=== PATIENT | female | born 1955 | race Caucasian/White ===

== ENCOUNTER 2019-09-21 08:00 | Outpatient (CLI) | payer BC, SELFPAY ==
--- NOTE | 2019-09-21 08:13 | MM_ITS ---
WS: [id number] LEFT DIGITAL MAMMOGRAPHY WITH CAD CLINICAL INFORMATION: LT BREAST LUMP 2 O'CLOCK HISTORY: Left breast lump 2:00. History of right breast surgery benign. COMPARISON: November 13, 2018, November 01, 2017, and TECHNIQUE: 5 views of the left breast were obtained. FINDINGS: The left breast is composed of heterogeneous fibroglandular density tissue, which can limit the detec tion of small underlying mass lesions. Asymmetric breast tissue left greater than right upper outer q uadrant unchanged. No definite mammographic abnormalities deep to the palpable marker. Ultrasound is pending. ULTRASOUND BREAST LEFT TECHNIQUE: Ultrasound left breast focused area of concern. CLINICAL INFORMATION: LT BREAST LUMP 2 O'CLOCK COMPARISON: None. FINDINGS: Ultrasound left breast at the 12 to 2:00 position. Hypoechoic taller than wide shadowing lesion at th e 2:00 position 4 cm from the nipple is suspicious for neoplasm. This measures approximately 1.3 x 0. 9 x 1.4 cm. Recommend further evaluation with ultrasound-guided biopsy. Incidental echogenic subcutaneous lipomas are noted. Incidental breast cyst at the 2:00 position. Recommend ultrasound-guided biopsy of a suspicious shadowing lesion left breast 2:00 position 4 cm fr om the nipple. BI-RADS 4C MM/[place] [id number] IMPRESSION: Follow up: Ultrasound-guided biopsy
== END 2019-09-21 08:01 | disposition home or self-care (01) ==
LOC: RADSHAW 08:04
PROVIDERS: Family Provider Internal Medicine; Visit Provider Family Medicine
DX: N63.21 Unspecified lump in the left breast, upper outer quadrant (principal); D17.39 Benign lipomatous neoplasm of skin and subcutaneous tissue of other sites
CPT/HCPCS: 76642; 77065

== ENCOUNTER 2019-10-17 11:44 | Outpatient (CLI) | payer BC, SELFPAY ==
--- NOTE | 2019-10-17 11:52 | US_ITS ---
WS: [id number] ULTRASOUND-GUIDED LEFT BREAST BIOPSY CLINICAL INFORMATION: BREAST LUMP LEFT SIDE 2 O'CLOCK POSITION COMPARISON: None. FINDINGS: The procedure including risks, benefits, and complications were discussed with the patient who agreed to proceed. Using sterile technique patient was prepped and draped in the usual sterile fashion. Aft er 1% lidocaine utilizing real-time ultrasound guidance 7 14-gauge cores were obtained of the left br east lesion at the 2 o'clock position. Subsequently a titanium clip was placed in the biopsy cavity. No immediate complications. Pathology demonstrates invasive mammary carcinoma with focal lobular features grade 2 of 3. US/[place] [id number] IMPRESSION: 1. Uncomplicated ultrasound-guided left breast biopsy. 2. The pathology demonstrates invasive mammary carcinoma with focal lobular fe atures grade 2 of 3. 3. Breast cancer prognostic profile pending. BI-RADS: 6-Known Biopsy-Proven Malignancy FOLLOW UP: See Report Recommend breast surgery consultation.
[2019-11-13 12:29] LABS: Miscellaneous Test See Scanned Lab Rpt
== END 2019-10-17 11:45 | disposition home or self-care (01) ==
LOC: RAD 11:48
PROVIDERS: Radiology Neuroradiology; Family Provider Internal Medicine; PCP Family Medicine; Visit Provider Family Medicine
DX: C50.412 Malignant neoplasm of upper-outer quadrant of left female breast (principal); N63.21 Unspecified lump in the left breast, upper outer quadrant
CPT/HCPCS: 19083; 88305; 88361; 88367; 88374

== ENCOUNTER 2019-10-31 14:12 | Outpatient (CLI) | payer BC, SELFPAY ==
--- NOTE | 2019-10-31 16:30 | ONC CON_ITS ---
Dr. Roberts New Patient Note Patient: Gisle Shipley Unit #: [id number]: [id number] Dicatated By: Roosevelt Roberts M.D.Date of Visit: Oct 31, 2019 Onc MED New Patient/Consult Referring Physician: Mary Lee History of Present Illness: Mrs. Gisel Shipley, is a 64-year-old female with history of right breast lumpectomy at age 18, as per patient since then she has been examining breast and recently noted mass in her left breast for which she underwent mammogram on 09/21/2019 which showed left breast is composed of heterogeneous fibroglandular density tissue, asymmetric breast tissue left greater than right upper outer quadrant unchanged. No definite mammographic abnormalities deep to the palpable marker. Subsequently patient underwent ultrasound of left breast at 12- 2:00 position. Hypoechoic shadowing lesion at 2:00 position 4 cm from the nipple is suspicious for neoplasm and it measures 1.3 x 0.9 x 1.4 cm. Patient underwent ultrasound-guided left breast biopsy on 10/17/2019 which showed invasive mammary carcinoma with focal lobular feature, grade 2, tumor involves all 5 cores., Prognostic profiling shows ER/CT strongly positive, HER-2/tony 2+, but negative for HER-2/tony overexpression by IHC and over amplification by FISH. Ki-67 was 36% which is high e.g. unfavorable. No family history of breast cancer No history of hormonal supplement. Patient denies any nipple discharge, denies any nipple retraction. Denies any left axillary fullness. Denies any bony pains. Denies any fever or chills. Past Medical History: Ms. Shipley's medical history consists of arthritis, depression, hypercholesterolemia, and hypothyroidism. Past Surgical History: Ms. Troncoso surgical/procedural history consists of bilateral knee replacement, breast biopsy, cholecystectomy, hernia repair, right breast lumpectomy, thyroid ablation, tubal ligation, and colonoscopy in 2009. Medications: Aspirin Adult 1 Tablet (of 325 mg) Oral daily, Atorvastatin Calcium 1 Tablet (of 20 mg) Oral daily, Cetirizine HCl 1 Tablet (of 10 mg) Oral daily PRN, Levothyroxine Sodium 1 Tablet (of 100 mcg) Oral daily Allergies: Aleve Social History: Ms. Shipley is and she is retired. Ms. Shipley quit smoking 8 years ago but had smoked for 15 years. She has no history of drinking. Ms. Shipley reports the following support systems: lives with spouse, significant other, family, or friends, lives in own house, supportive family/friends willing to assist with needs, and adequate transportation available for expected visits. Her diet consists of regular meals. She indicates her activity level as: regular exercise. Family History: Ms. Kans mother at age 77: Alzheimer's disease. Ms. Kans father is alive. Review Of Symptoms: Constitutional - Appetite is good and weight is stable. No fever, chills, hot flashes, or night sweats. Energy level is good, ENMT - No sinus congestion/drainage. No mouth sores. No sore throat or difficulty swallowing, Hematologic/Lymphatic - No abnormal bruising or bleeding, Respiratory - No shortness of breath. No cough. No pleuritic pain or hemoptysis, Cardiovascular - No angina pain. No palpitations, Gastrointestinal - No nausea or vomiting. No heartburn or acid reflux. No diarrhea or constipation. No blood in the stool or black stools, Genitourinary (F) - No dysuria or hematuria. No urinary frequency. No urgency or incontinence, Musculoskeletal - No joint or bone pain, Neurologic - No headache or dizziness. No numbness/paresthesias or other focal neurologic symptoms, Psychiatric - No anxiety or depression. No insomnia. Vital Signs: Performed on Oct 31, 2019 15:28: 0, 41.47 (HIGH), 2.12 sq.m, 64.00 in, 96 %, 67 /min, 20 /min, 145/75 mm(hg) (HIGH), 97.3 F (LOW), and 241.6 lbs (HIGH). Performance Status: 0 - Fully active, able to carry on all predisease activities without restrictions. (ECOG) Physical Examination: ENMT - . No oral exudates, ulcers, masses, thrush or mucositis. Oropharynx clear. Tongue normal, Respiratory - Lungs are clear to auscultation without rhonchi or wheezing, Cardiovascular - Regular rate and rhythm of heart, Breasts - left breast biopsy site healing,with no discharge. No left axillary lymphadenopathy, Abdomen - Non-tender, non-distended, no masses,. Good bowel sounds. No guarding or rebound tenderness. No pulsatile masses, Extremities - no edema. Lab/Imaging: Most recent lab results are not available for this patient. Impression: Invasive mammary carcinoma with focal lobular features, grade 2 per ultrasound-guided biopsy done on 10/17/2019 ER 91% positive, CT 89% positive, HER-2/tony negative. Ultrasound left breast done on 09/21/2019 showed 1.3 x 0.9 x 1.4 cm mass at 2:00 position left breast. Plan: Discussed with patient regarding her disease status and treatment options which include left breast lumpectomy with sentinel lymph node biopsy or left MRM with a left axilla lymph node sampling. Patient prefer breast preservation and would prefer lumpectomy with sentinel lymph node biopsy. Patient is already scheduled to see Dr. Gong . We will see her back after left breast lumpectomy with sentinel lymph node biopsy and if it shows localized disease with a no lymph node involvement we'll consider Oncotype DX and if it shows low risk then will consider adjuvant hormonal therapy with Arimidex 1 mg by mouth daily for 5 years on the other hand if it shows the risk then we will discuss about role of adjuvant chemotherapy followed by hormonal therapy. And as patient is considering breast preservation, she will need postlumpectomy radiation therapy also. Next Patient return to clinic 1 week after left breast lumpectomy with sentinel lymph node biopsy Signed By: Roosevelt Roberts M.D. <<Signature on File>>
== END 2019-10-31 14:13 | disposition home or self-care (01) ==
PROVIDERS: Family Provider Internal Medicine; PCP Family Medicine; Referring Provider Family Medicine; Visit Provider Internal Medicine Hematology & Oncology
DX: C50.412 Malignant neoplasm of upper-outer quadrant of left female breast (principal); Z17.0 Estrogen receptor positive status [ER+]; M19.90 Unspecified osteoarthritis, unspecified site; F32.9 Major depressive disorder, single episode, unspecified; E78.00 Pure hypercholesterolemia, unspecified; E03.9 Hypothyroidism, unspecified; Z96.653 Presence of artificial knee joint, bilateral; Z87.891 Personal history of nicotine dependence
CPT/HCPCS: 99205

== ENCOUNTER 2019-12-06 07:12 | Outpatient (CLI) | payer BC, SELFPAY ==
[2019-12-05 14:08] VITALS: BMI 41.5
--- NOTE | 2019-12-06 | US_ITS ---
WS: [id number] ULTRASOUND-GUIDED LEFT BREAST NEEDLE LOCALIZATION CLINICAL INFORMATION: LEFT BREAST LUMPECTOMY FINDINGS: The procedure including risks, benefits, and complications were discussed with the patient who agreed to proceed. Using sterile technique patient was prepped and draped in the usual sterile fashion. Aft er 1% lidocaine utilizing real-time ultrasound guidance a 7 cm Kopan's needle was advanced into the l eft breast lesion at the 2:00 position. Surgical specimen demonstrates gross total resection of the hypoechoic lesion with intact wire. US/US breast surgical specimen IMPRESSION: Uncomplicated ultrasound-guided needle localization with gross total resection. BI-RADS: 6-Known Biopsy-Proven Malignancy FOLLOW UP: See Report
[2019-12-06 07:29] VITALS: BP 141/65; PULSE 85; RESP 18; TEMP 36.3; O2SAT 97
--- NOTE | 2019-12-06 07:30 | US_ITS ---
WS: [id number] ULTRASOUND-GUIDED LEFT BREAST NEEDLE LOCALIZATION CLINICAL INFORMATION: LEFT BREAST LUMPECTOMY FINDINGS: The procedure including risks, benefits, and complications were discussed with the patient who agreed to proceed. Using sterile technique patient was prepped and draped in the usual sterile fashion. Aft er 1% lidocaine utilizing real-time ultrasound guidance a 7 cm Kopan's needle was advanced into the l eft breast lesion at the 2:00 position. Surgical specimen demonstrates gross total resection of the hypoechoic lesion with intact wire. US/[place] [id number] IMPRESSION: Uncomplicated ultrasound-guided needle localization with gross total resection. BI-RADS: 6-Known Biopsy-Proven Malignancy FOLLOW UP: See Report
--- NOTE | 2019-12-06 07:44 | NM_ITS ---
WS: [id number] SENTINEL NODE TECHNIQUE: Left breast sentinel node injection CLINICAL INFORMATION: breast cancer COMPARISON: None. PROCEDURE: The procedure including risks, benefits, and complications were discussed; the patient agr eed to proceed. Patient was prepped and draped in usual sterile fashion. Subsequently, 1% lidocaine p reservative-free was administered at the 12:00, 3:00, 6:00, and 9:00 o'clock positions for local anes thesia. Subsequently, 4 aliquots of filtered technetium 99m sulfur colloid was injected into the subc utaneous soft tissues. A total dose of 1.05 mCi was administered. Patient tolerated the procedure well with no immediate complications. CO/CO sentinel node inject [id number] IMPRESSION: Uncomplicated left breast sentinel node injection with a total dose of 1.05 mCi .
--- NOTE | 2019-12-06 09:02 | ANES.PREANE2 ---
Pre-Anesthetic Assessment Pre-Anesthetic Assessment: Height/Weight: Height 1.63 m Weight 109.769 kg Temp Pulse Resp BP Pulse Ox 97.4 F L 85 18 141/65 97 12/06/19 07:29 12/06/19 07:29 12/06/19 07:29 12/06/19 07:29 12/06/19 07:29 Proposed Procedure: Operation Date: 12/06/19 10:00 Proposed Procedures p Sentinal Lymph Node Biopsy(Left) - Connor Gong MD s Breast Biopsy Needle Localization(Left) - Connor Gong MD s Lumpectomy(Left) - Connor Gong MD Last intake: Intake Last Liquid Date 12/05/19 Last Liquid Time 21:00 Last Solid Date 12/05/19 Last Solid Time 15:00 Social: Social History: Tobacco (quit 2011) and No alcohol Exam: Pre-Anes Outpt Exam: alert, oriented x 3, clear to auscultation bilaterally and regular rate & rhythm Airway: Submandibular: WNL Cervical ROM: WNL MP: 2 Dentition: Other (ok) History/ROS: No significant history except as noted Pulmonary: Pulmonary: None reported CV/HEM: CV/HEM: None reported : : None reported Hepatic: Hepatic: None reported GI: GI: None reported Metabolic: Metabolic: Morbid obesity and Thyroid Musc/skel: Musc/skel: OA/DJD Neuropsych: Neuropsych: None reported Anesthetic Plan: ASA status: 2 Anesthesia: Anesthesia Evaluation and MAC Risk of > 500 ml blood loss (7ml/kg in children): No PFSH Anesthesia PFSH: Medical History Cholecystectomy planned Gall bladder disease Surgical History H/O total knee replacement H/O tubal ligation History of lumpectomy Social History Quit status (tobacco): has quit using tobacco Smoking risk assessment/counseling performed?: No Data Anesthesia Cardiac Studies: No Data to Display
[2019-12-06] MEDS: sodium chloride 0.9% 1,000 ML 30 ML IV (09:06)
--- NOTE | 2019-12-06 09:35 | W.PM.OPSUD ---
Surgery/Procedure H&P Update DATE OF PROCEDURE: December 06, 2019 DATE H&P PERFORMED: 11/19/19 H&P UPDATE INFORMATION: I have reviewed H&P completed within last 30 days and No changes to prior documentation PLANNED PROCEDURE: Operation Date: 12/06/19 10:00 Proposed Procedures p Sentinal Lymph Node Biopsy(Left) - Connor Gong MD s Breast Biopsy Needle Localization(Left) - Connor Gong MD s Lumpectomy(Left) - Connor Gong MD
--- NOTE | 2019-12-06 10:32 | PM.OP ---
Operative Report Date of procedure: December 06, 2019 Pre-op Diagnosis: Left breast cancer. Post-op diagnosis: same Procedure Done: 1. Left breast lumpectomy following preoperative needle localization. 2. Left axillary sentinel lymph node biopsy. Specimens removed/disposition: 1. Left breast lumpectomy specimen. Long suture anteriorly, short suture medially. 2. Left axillary sentinel lymph nodes. Surgeon: Connor Gong Anesthesia: MAC Estimated blood loss (mL): 25 Complications: None. Condition: stable Disposition: same day Procedure: The patient was brought to the operating room and was placed in a supine position on the operating room table. The patient had undergone needle localization and radioactive tracer injection in radiology preoperatively. A monitored anesthesia was induced. The left breast and axilla were prepped and draped in a sterile fashion, taking care not to disturb the localization wire which had been placed in radiology preoperatively. A combination of 1% lidocaine and 0.5% bupivacaine with 1-200,000 parts epinephrine was used for local anesthesia throughout the procedures. The gamma probe was first used to find the hot spot in the axilla. A curvilinear incision was carried out over the hot spot of the axilla inferiorly and somewhat anteriorly. Cautery and blunt dissection were used to traverse the subcutaneous tissue and the axilla was entered. Using a combination of inspection and the gamma probe, the hot lymph node was found and was completely removed using blunt dissection and cautery. The lymph node was actually contained in a small lymph node package containing as least 3 nodes. The node registered counts of 120 on the field. Further inspection of the axilla with the gamma probe revealed all counts less than 10. The wound was irrigated with saline. A suture of 3-0 Vicryl was used to bring the deeper tissue together and the skin was approximated using a running subcuticular suture of 4-0 Vicryl. Attention was then directed to the breast. A curvilinear incision was carried out in the upper outer aspect of the left breast over the palpable mass medial to the insertion point of the localization wire. Cautery was used to divide the breast tissue and then the entire palpable mass could be palpated as the wire was mobilized into the incision. The mass and wire were excised using a combination of sharp dissection and cautery, attempting to take a normal rim of breast tissue all around the periphery. Larger vessels were ligated with ties of 3-0 Vicryl. The specimen was eventually marked with a long suture anteriorly and a short suture medially. The wound was irrigated with saline and some small bleeding points were controlled with cautery. The skin was reapproximated using a running subcuticular suture of 4-0 Vicryl. Benzoin and Steri-Strips were placed over the incisions and a sterile bandage followed. The patient was taken to the recovery area in stable condition postoperatively.
[2019-12-06 10:49] VITALS: BP 153/79; PULSE 73; RESP 18; TEMP 36.3; O2SAT 95
[2019-12-06 11:07] VITALS: BP 161/77; PULSE 69; RESP 18; O2SAT 95
== END 2019-12-06 11:26 | disposition home or self-care (01) ==
PROVIDERS: Family Provider Internal Medicine; PCP Family Medicine; Visit Provider Surgery
PROC: (CPT 19301; principal; 2019-12-06 10:00)
PROC: (CPT 19301; 2019-12-06 10:00)
PROC: (CPT 19301; 2019-12-06 10:00)
DX: C50.412 Malignant neoplasm of upper-outer quadrant of left female breast (principal); E78.5 Hyperlipidemia, unspecified; M19.90 Unspecified osteoarthritis, unspecified site; E03.9 Hypothyroidism, unspecified; Z87.891 Personal history of nicotine dependence
CPT/HCPCS: 19301; 38500; 12345; 19285; 38792; 88305; A9541; J0690; J2001; J2250; J2704; J3010; J3490; J7030

== ENCOUNTER 2020-01-17 08:17 | Outpatient (CLI) | payer BC, SELFPAY ==
[2020-01-17 08:43] LABS: Basophils # 0.1 10^3/uL (0.0-0.1); Basophils % 1.2 %; Eosinophils # 0.4 10^3/uL (0.0-0.8); Eosinophils % 5.6 %; Hematocrit 42.1 % (37.0-47.0); Hemoglobin 13.4 g/dL (11.5-15.3); Lymphocytes # 1.6 10^3/uL (0.8-4.8); Mean Corpuscular HGB Conc 31.8 g/dL (30.0-36.0); Mean Corpuscular Hemoglobin 29.4 pg (28.0-34.0); Mean Corpuscular Volume 92.3 fL (81-99); Mean Platelet Volume 9.7 fL (7.4-10.4); Monocytes # 0.4 10^3/uL (0.2-0.9); Monocytes % 5.3 %; Neutrophils # 4.2 10^3/uL (1.8-7.7); Neutrophils % 63.6 %; Nucleated Red Blood Cells % 0 %; Platelet Count 429 10^3/cmm (130-400); Red Blood Count 4.56 10^6/uL (4.1-5.3); Red Cell Distribution Width 13.3 % (12.1-15.1); White Blood Count 6.6 10^3/uL (4.0-10.0)
[2020-01-17 09:06] LABS: Alanine Aminotransferase 14 U/L (0-33); Albumin Level 4.2 g/dL (3.5-5.2); Alkaline Phosphatase 128 IU/L (35-105); Anion Gap 14.6 (5-19); Aspartate Amino Transferase 15 U/L (0-32); Blood Urea Nitrogen 13 mg/dL (8-23); Calcium 9.9 mg/dL (8.5-10.5); Carbon Dioxide 26 mmol/L (22-29); Chloride 102 mmol/L (98-107); Globulin 3.4 g/dL (1.3-4.6); Glomerular Filtration Rate 72.7 mL/min (90-130); Glucose 121 mg/dL (65-115); Osmolality Calculated 283 mOsm/kg (285-295); Potassium 4.6 mmol/L (3.5-5.1); Sodium 138 mmol/L (136-145); Total Bilirubin 0.4 mg/dL (0.15-1.2); Total Protein 7.6 g/dL (6.6-8.7)
--- NOTE | 2020-01-17 13:19 | ONC FU_ITS ---
Dr. Roberts follow up note Patient: Gisel Shipley Unit #: [id number]: 1955 Dicatated By: Roosevelt Roberts M.D.Date of Visit:Jan 17, 2020 Onc Med Follow-up/Prog Note History of Present Illness: Mrs. Gisel Shipley, is a 64-year-old female with history of right breast lumpectomy at age 18, as per patient since then she has been examining breast and recently noted mass in her left breast for which she underwent mammogram on 09/21/2019 which showed left breast is composed of heterogeneous fibroglandular density tissue, asymmetric breast tissue left greater than right upper outer quadrant unchanged. No definite mammographic abnormalities deep to the palpable marker. Subsequently patient underwent ultrasound of left breast at 12- 2:00 position. Hypoechoic shadowing lesion at 2:00 position 4 cm from the nipple is suspicious for neoplasm and it measures 1.3 x 0.9 x 1.4 cm. Patient underwent ultrasound-guided left breast biopsy on 10/17/2019 which showed invasive mammary carcinoma with focal lobular feature, grade 2, tumor involves all 5 cores., Prognostic profiling shows ER/NC strongly positive, HER-2/tony 2+, but negative for HER-2/tony overexpression by IHC and over amplification by FISH. Ki-67 was 36% which is high e.g. unfavorable.Underwent left breast lumpectomy with sentinel lymph node biopsy on 12/06/2019 final pathology report showed 2.5 cm invasive lobular carcinoma with clear surgical margins , T2 and 3 sentinel lymph node were examined showed no evidence of metastatic disease N0 Started on Arimidex 1 mg by mouth daily along with vitamin D and calcium supplement on 01/17/2020, Oncotype DX score is pending No family history of breast cancer No history of hormonal supplement. Patient denies any nipple discharge, denies any nipple retraction. Denies any left axillary fullness. Denies any bony pains. Denies any fever or chills. Came for follow-up, denies any specific complaints, no fever or chills, no nausea or vomiting, no diarrhea constipation, tolerated left breast lumpectomy well now he is doing well. Medications: Amoxicillin 1 Capsule (of 500 mg) Oral b.i.d., Aspirin Adult 1 Tablet (of 325 mg) Oral daily, Atorvastatin Calcium 1 Tablet (of 20 mg) Oral daily, Cetirizine HCl 1 Tablet (of 10 mg) Oral daily PRN, Levothyroxine Sodium 1 Tablet (of 100 mcg) Oral daily, traMADol HCl 1 Tablet (of 50 mg) Oral daily PRN Allergies: Aleve Review of Systems: Constitutional - Appetite is good and weight is stable. No fever, chills, hot flashes, or night sweats. Energy level is good, ENMT - No sinus congestion/drainage. No mouth sores. No sore throat or difficulty swallowing, Hematologic/Lymphatic - No abnormal bruising or bleeding, Respiratory - No shortness of breath. No cough. No pleuritic pain or hemoptysis, Cardiovascular - No angina pain. No palpitations, Gastrointestinal - No nausea or vomiting. No heartburn or acid reflux. No diarrhea or constipation. No blood in the stool or black stools, Genitourinary (F) - No dysuria or hematuria. No urinary frequency. No urgency or incontinence, Musculoskeletal - No joint or bone pain, Neurologic - No headache or dizziness. No numbness/paresthesias or other focal neurologic symptoms, Psychiatric - No anxiety or depression. No insomnia. Vital Signs: Performed on Jan 17, 2020 10:12 Height - 64.00 in Weight - 241 lbs (LOW) BSA - 2.12 sq.m BMI - 41.37 (HIGH) Temperature - 98.0 F (LOW) Pulse - 67 /min Respiration - 17 /min BP - 173/75 mm(hg) (HIGH) O2 Sat - 99 % Pain - 5 Performance Status: 0 - Fully active, able to carry on all predisease activities without restrictions. (ECOG) Physical Examination: Respiratory - Lungs are clear, Cardiovascular - Regular rate and rhythm of heart, Extremities - no visible edema. Lab/Imaging: Most recent lab results are not available for this patient. Impression: Invasive mammary carcinoma with focal lobular features, grade 2 per ultrasound-guided left breast biopsy done on 10/17/2019 status post lumpectomy Done on 12/06/2019 showed 2.5 cm invasive lobular carcinoma with clear surgical margins T2, 3 sentinel lymph nodes were examined showed no evidence of metastatic disease N0 stage IIa ER 91% positive, NC 89% positive, HER-2/tony negative. Ultrasound left breast done on 09/21/2019 showed 1.3 x 0.9 x 1.4 cm mass at 2:00 position left breast. Plan: Discussed with patient regarding her labs white blood count 6.66 hemoglobin 13.4 platelets 425,000 CMP within normal limits Clinically, patient is doing well, tolerated left breast lumpectomy with sentinel lymph node biopsy well final pathology report showed 2.5 cm invasive lobular carcinoma with clear surgical margin and no evidence of sentinel lymph node involvement, clinical stage IIa, at this point we will consider Oncotype DX score, treated low then treat her with adjuvant hormonal therapy and postlumpectomy radiation therapy on the other hand if is high then will discuss about role of chemotherapy In the meantime we'll start on Arimidex 1 mg by mouth daily along with vitamin D and calcium all the side effects possible benefits estrogen with Arimidex including but not limited to muscular skeleton pain, hot flashes, generalized weakness and fatigue, bone demineralization were discussed further teaching will be done by chemotherapy nurse. We will she will return to clinic in one month to discuss about Oncotype DX score in the meantime we'll refer her to radiation oncology for postlumpectomy radiation therapy. Signed By: Roosevelt Roberts M.D. <<Signature on File>>
== END 2020-01-17 08:18 | disposition home or self-care (01) ==
LOC: ONCMED 08:17
PROVIDERS: PCP Family Medicine; Visit Provider Internal Medicine Hematology & Oncology
DX: C50.412 Malignant neoplasm of upper-outer quadrant of left female breast (principal); Z17.0 Estrogen receptor positive status [ER+]; Z98.890 Other specified postprocedural states
CPT/HCPCS: 36415; 80053; 85025; 99214

== ENCOUNTER 2020-01-22 06:00 | Outpatient (CLI) | payer BC, SELFPAY ==
--- NOTE | 2020-01-24 08:26 | N.ONRAD NP_ITS ---
Radiation Oncology New Patient Visit Patient: Gisel Shipley MR#: [id number] : 1955> Age: 64> Sex: Female> Dictated by: Dr. Alvaro Hummel Date of Service: 01/22/2020 Referring Physician(s) : Mary Lee Diagnosis: Z17.0 - estrogen receptor positive status [er+], Diagnosed 10/31/2019 (active) and C50.412 - malignant neoplasm of upper-outer quadrant of left female breast, Diagnosed 10/31/2019 (active). Radiotherapy to date: Summary > No prior radiation therapy. 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 She underwent initial biopsy on October 18, 2019 she underwent resection and sentinel lymph node biopsy on December 06, 2019. Decision for systemic treatment is still pending the outcome of an Oncotype DX assessment. We were asked to see her regarding the role of adjuvant breast radiation treatment. Ms. Gisel Shipley noted a asymptomatic new mass in the lateral aspect of her left breast in July 2019. There were no skin changes or skin dimpling noted. She underwent mammography and ultrasonography on September 21, 2019 mammography revealed heteogeneous fibroglandular density tissue.. Follow-up ultrasonography revealed a hypoechoic lesion at the 2 o'clock position measuring 1.3 x 0.9 x 1.4 cm. Follow-up biopsy on October 18, 2019 revealed invasive ductal carcinoma ER positive at 91% LA positive at 89% Ki-67 was elevated at 36% HER-2/tony was negative by FISH She underwent excisional resection and sentinel lymph node biopsy on December 06, 2019 this revealed grade 2 invasive ductal carcinoma 2.5 cm in dimension resected with clear margins. 3 lymph nodes were sampled which were clear of involvement. Postoperatively she has done well. She is seen Dr. Roberts. Oncotype DX score is pending and this will be a determinant for systemic treatment whether it is hormone treatment alone versus systemic chemotherapy followed by hormonal treatment.. In the meantime she has been placed on anastrozole. Current Medications: Amoxicillin, anastrozole, aspirin Adult, atorvastatin Calcium, cetirizine HCl, levothyroxine Sodium, traMADol HCl. Allergies: Aleve. Medical History: - Arthritis, - depression, - hypercholesterolemia, - hypothyroidism. No history of collagen vascular disease. No previous radiation therapy. She did have thyroid ablation for hyperthyroidism in the past Surgical History: Bilateral knee replacement, breast biopsy, cholecystectomy, colonoscopy on 06/24/2010, hernia repair, right breast lumpectomy, thyroid ablation and tubal ligation. Family History: Father is alive. Mother is at age 77 having experienced Alzheimer's disease. No family history of carcinoma Social History: Last screened on 01/17/2020 - Yes - but has quit for 8 years. Smoked for 15 years. Last screened on 01/17/2020 - Never drank. Patient indicated access to the following support systems: lives with spouse, significant other, family, or friends, lives in own house, supportive family/friends willing to assist with needs, and adequate transportation available for expected visits. Patient indicated the following nutritional habits: regular meals. Patient indicated participation in the following forms of activity: regular exercise. She was in 2010 she had 2 adult children 1 son in boating accident and drowned in 2005 she smoked one third of a pack of cigarettes a day for 30 years she quit on fci in 2011 she rarely drinks alcohol. 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 She currently cares for her mother as well as watching her father and other family members Current Complaints / Review of Systems: Constitutional - Denies lack of appetite, fatigue, fever, night sweats and rigors / chills. Cardiovascular - Denies chest pain and palpitations. Respiratory - Denies cough and dyspnea. Gastrointestinal - Denies constipation, diarrhea, nausea and vomiting. Genitourinary (F) - Denies dysuria, frequency and hematuria. Musculoskeletal - Denies bone pain and joint pain. Neurologic - Complains of insomnia which is normal for her. Denies abnormal gait and headaches. Psychiatric - Denies depression.. Vital Signs: Performed on 01/22/2020 2:52 PM Temperature - 98.6 f, Pulse - 59, Respiration - 17, O2 Sat - 96 %, Pain - 0 and BP - 124/ 80 mm(hg). Physical Exam: Alert woman in no acute distress HEENT examination revealed fair dentition with recent tooth extraction in the mandible. Lymph nodes she had no palpable cervical or supra thor adenopathy. Arms had full range of motion with no arm edema. Left breast revealed well-healed incision in the upper outer quadrant no breast masses tenderness or skin changes were noted. Lungs clear to auscultation. Heart regular without murmur gallop. Abdominal examination unremarkable. Extremities revealed no clubbing or cyanosis. Neurologic examination revealed no focal deficits. Performance Status: 1 - No physically strenuous activity, but ambulatory and able to carry out light or sedentary work (e.g. office work, light house work). (ECOG) Pathology: Primary, z17.0 - estrogen receptor positive status [er+], Diagnosed 10/31/2019 (active) and Primary, c50.412 - malignant neoplasm of upper-outer quadrant of left female breast, Diagnosed 10/31/2019 (active). Lab: Test performed on 01/17/2020 8:32 AM Platelet Count - 429 10 3/cmm (high), eGFR - 72.7 ml/min (low), Glucose - 121 mg/dl (high) and Alkaline Phosphatase - 128 iu/l (high). Imaging: See HPI Impression: IN summary my impression is that a pathologic stage II (T2 N0 M0) ER+ LA+ HER-2/tony negative grade 2 adenocarcinoma the left breast. she had full resection at lumpectomy she is healed well following surgery. We await her Oncotype DX score to determine appropriate systemic treatment. In the event she has a high score and requires adjuvant chemotherapy this would be pursued first and following the completion of chemotherapy she would then have adjuvant radiation treatment and proceed with adjuvant anastrozole. I discussed this in detail with the patient I reviewed this with Dr. Roberts as well and he will follow-up with the patient once the Oncotype DX score is available. I outlined the role of adjuvant radiation as well as its acute and chronic toxicities with the patient in detail. Plan: Signed by: 01/24/2020 8:25:12 AM <<Signature on File>> Time spent with patient: CPT Code: CPT Code:
== END 2020-01-22 06:01 | disposition home or self-care (01) ==
LOC: ONCMED 15:37
PROVIDERS: PCP Family Medicine; Visit Provider Radiology Radiation Oncology
DX: C50.412 Malignant neoplasm of upper-outer quadrant of left female breast (principal); Z17.0 Estrogen receptor positive status [ER+]; Z79.818 Long term (current) use of other agents affecting estrogen receptors and estrogen levels
CPT/HCPCS: 99204

== ENCOUNTER 2020-02-13 14:08 | Outpatient (CLI) | payer BC, SELFPAY ==
[2020-02-13 14:45] LABS: Basophils # 0.1 10^3/uL (0.0-0.1); Basophils % 1.1 %; Eosinophils # 0.4 10^3/uL (0.0-0.8); Eosinophils % 3.6 %; Hemoglobin 13.8 g/dL (11.5-15.3); Lymphocytes # 2.3 10^3/uL (0.8-4.8); Lymphocytes % 23.6 %; Mean Corpuscular HGB Conc 32.1 g/dL (30.0-36.0); Mean Corpuscular Hemoglobin 29.6 pg (28.0-34.0); Mean Corpuscular Volume 92.1 fL (81-99); Mean Platelet Volume 9.9 fL (7.4-10.4); Monocytes # 0.6 10^3/uL (0.2-0.9); Monocytes % 5.8 %; Neutrophils # 6.4 10^3/uL (1.8-7.7); Neutrophils % 65.6 %; Nucleated Red Blood Cells % 0 %; Platelet Count 426 10^3/cmm (130-400); Red Blood Count 4.67 10^6/uL (4.1-5.3); Red Cell Distribution Width 13.7 % (12.1-15.1); White Blood Count 9.8 10^3/uL (4.0-10.0)
[2020-02-13 15:14] LABS: Alanine Aminotransferase 18 U/L (0-33); Albumin Level 4.3 g/dL (3.5-5.2); Alkaline Phosphatase 133 IU/L (35-105); Anion Gap 13.2 (5-19); Aspartate Amino Transferase 17 U/L (0-32); Blood Urea Nitrogen 11 mg/dL (8-23); Calcium 10.5 mg/dL (8.5-10.5); Carbon Dioxide 27 mmol/L (22-29); Chloride 103 mmol/L (98-107); Glomerular Filtration Rate 63.4 mL/min (90-130); Glucose 113 mg/dL (65-115); Osmolality Calculated 285 mOsm/kg (285-295); Potassium 4.2 mmol/L (3.5-5.1); Sodium 139 mmol/L (136-145); Total Bilirubin 0.2 mg/dL (0.15-1.2); Total Protein 7.3 g/dL (6.6-8.7)
--- NOTE | 2020-02-15 13:55 | ONC FU_ITS ---
Dr. Roberts follow up note Patient: Gisel Shipley Unit #: [id number]: 1955 Dicatated By: Roosevelt Roberts M.D.Date of Visit:February 13, 2020 Onc Med Follow-up/Prog Note History of Present Illness: Mrs. Gisel Shipley, is a 64-year-old female with history of right breast lumpectomy at age 18, as per patient since then she has been examining breast and recently noted mass in her left breast for which she underwent mammogram on 09/21/2019 which showed left breast is composed of heterogeneous fibroglandular density tissue, asymmetric breast tissue left greater than right upper outer quadrant unchanged. No definite mammographic abnormalities deep to the palpable marker. Subsequently patient underwent ultrasound of left breast at 12- 2:00 position. Hypoechoic shadowing lesion at 2:00 position 4 cm from the nipple is suspicious for neoplasm and it measures 1.3 x 0.9 x 1.4 cm. Patient underwent ultrasound-guided left breast biopsy on 10/17/2019 which showed invasive mammary carcinoma with focal lobular feature, grade 2, tumor involves all 5 cores., Prognostic profiling shows ER/MN strongly positive, HER-2/tony 2+, but negative for HER-2/tony overexpression by IHC and over amplification by FISH. Ki-67 was 36% which is high e.g. unfavorable.Underwent left breast lumpectomy with sentinel lymph node biopsy on 12/06/2019 final pathology report showed 2.5 cm invasive lobular carcinoma with clear surgical margins , T2 and 3 sentinel lymph node were examined showed no evidence of metastatic disease N0 Started on Arimidex 1 mg by mouth daily along with vitamin D and calcium supplement on 01/17/2020, Oncotype DX score checked on 01/20/2020 showed recurrence score 14 e.g. low, risk of distant recurrence is about 4% with aromatase inhibitor and average absolute chemotherapy benefit less than 1%. No family history of breast cancer No history of hormonal supplement. Patient denies any nipple discharge, denies any nipple retraction. Denies any left axillary fullness. Denies any bony pains. Denies any fever or chills. Came for follow-up, denies any specific complaints except off and on hot flashes, otherwise tolerating Arimidex/vitamin D/calcium well, no fever or chills, no diarrhea constipation, no skin rash, no jaundice. Medications: Anastrozole 1 Tablet (of 1 mg) Oral daily, Aspirin Adult 1 Tablet (of 325 mg) Oral daily, Calcium + D 2 Tablet (of 600 mg) Oral daily, Levothyroxine Sodium 1 Tablet (of 100 mcg) Oral daily, Probiotic 1 Capsule Oral daily Allergies: Aleve Review of Systems: Review of Systems is not available for this patient. Vital Signs: Performed on February 13, 2020 15:27 Height - 64.00 in Weight - 239.2 lbs (LOW) BSA - 2.11 sq.m BMI - 41.06 (HIGH) Temperature - 98.6 F Pulse - 70 /min Respiration - 24 /min BP - 115/73 mm(hg) O2 Sat - 95 % (LOW) Pain - 0 Performance Status: 0 - Fully active, able to carry on all predisease activities without restrictions. (ECOG) Physical Examination: Respiratory - Lungs are clear to auscultation, Cardiovascular - Regular rate and rhythm of heart, Extremities - no visible edema or rash. Lab/Imaging: Test performed on February 13, 2020 14:07 Sodium 139 mmol/L Potassium 4.2 mmol/L Chloride 103 mmol/L CO2 27 mmol/L Anion Gap 13.2 BUN 11 mg/dL Creatinine 0.9 mg/dL Cr Clearance (Est) 111.01 mL/min eGFR 63.4 mL/min Glucose 113 mg/dL Calcium 10.5 mg/dL Protein, Total 7.3 g/dL Albumin 4.3 g/dL Globulin 3.0 g/dL Bilirubin, Total 0.2 mg/dL ALT (SGPT) 18 U/L AST (SGOT) 17 U/L Alkaline Phosphatase 133 IU/L WBC 9.8 10 3/uL RBC 4.67 10 6/uL HGB 13.8 g/dL HCT 43.0 % MCV 92.1 fL MCH 29.6 pg MCHC 32.1 g/dL RDW 13.7 % Platelet Count 426 10 3/cmm MPV 9.9 fL Neutrophils 6.4 10 3/uL Lymphocytes 2.3 10 3/uL Monocytes 0.6 10 3/uL Eosinophils 0.4 10 3/uL Basophils 0.1 10 3/uL Neutrophil % 65.6 % Lymphocyte % 23.6 % Monocyte % 5.8 % Eosinophil % 3.6 % Basophils % 1.1 % Impression: Invasive mammary carcinoma with focal lobular features, grade 2 per ultrasound-guided left breast biopsy done on 10/17/2019 status post lumpectomy Done on 12/06/2019 showed 2.5 cm invasive lobular carcinoma with clear surgical margins T2, 3 sentinel lymph nodes were examined showed no evidence of metastatic disease N0 stage IIa ER 91% positive, MN 89% positive, HER-2/tony negative. Ultrasound left breast done on 09/21/2019 showed 1.3 x 0.9 x 1.4 cm mass at 2:00 position left breast. Plan: Discussed with patient regarding her labs white blood count 9.8 hemoglobin 13.8 crit 42 platelets 426,000 CMP within normal limits and her Oncotype DX score which is low e.g. 14, no role of adjuvant chemotherapy rather with hormonal therapy alone risk of distant recurrence is 4% Clinically, patient doing well, tolerating adjuvant therapy with Arimidex/vitamin D/calcium well but with expected side effects e.g. off and on are flashes, hopefully with time it may improve, if not may consider intervention. Her Oncotype DX score was low so we'll continue with adjuvant hormone therapy and we'll refer her to radiation oncology for postlumpectomy radiation therapy. Patient will return to clinic in 3 months with CBC CMP Signed By: Roosevelt Roberts M.D. <<Signature on File>>
== END 2020-02-13 14:09 | disposition home or self-care (01) ==
LOC: ONCMED 14:10
PROVIDERS: PCP Family Medicine; Visit Provider Internal Medicine Hematology & Oncology
DX: C50.412 Malignant neoplasm of upper-outer quadrant of left female breast (principal); Z17.0 Estrogen receptor positive status [ER+]; Z79.811 Long term (current) use of aromatase inhibitors
CPT/HCPCS: 80053; 85025; 99214

== ENCOUNTER 2020-03-18 06:50 | Outpatient (RCR) | payer BC, SELFPAY ==
--- NOTE | 2020-02-20 | CT_ITS ---
Radiation Therapy Planning CT images; total exam DLP: 874.67 mGy-cm MTDD
--- NOTE | 2020-02-26 09:54 | N.ONRAD NP_ITS ---
Radiation Oncology Weekly Treatment Management Patient: Gisel Shipley MR#: [id number] : 1955> Age: 64> Sex: Female Dictated by: Althea Vogel Date of Service: 02/26/2020 Referring Physician(s) : Mary Lee M.D. Diagnosis: C50.412 - Malignant neoplasm of upper-outer quadrant of left female breast, Diagnosed 01/22/2020 (Active) Z17.0 - Estrogen receptor positive status [ER+], Diagnosed 10/31/2019 (Active) C50.412 - Malignant neoplasm of upper-outer quadrant of left female breast, Diagnosed 10/31/2019 (Active) Patient presents today for check-up by registered nurse. The patients has had Course: [facility] 2019 Treatment Site: [place] [id number],Ref. ID: [id number], Energy: 15X/6X, Dose/Fx (cGy): 266, #Fx: , Dose Correction (cGy): 0, Total Dose (cGy): 532, Start Date: 02/25/2020, Elapsed Days: 1 Patient Has complaint of pinkness at the lower part of the left breast. I have addressed complaints by giving the patient samples of Aquaphor and explained to the patient when to apply it. Patient acknowledged understanding. Nursing assessment of patient as follows: Constitutional Complains of moderate fatigue. Complains of night sweats which occur every night and also has hot flashes. Denies lack of appetite and fever. Integumentary Has some pinkness at the lower part of the left breast. Breasts Denies pain. Cardiovascular Complains of edema both feet and the left one is worse than the right. Denies arrhythmias and chest pain. Respiratory Denies cough, dyspnea and wheezing. Questions encouraged and answered. I encouraged patient to call with any concerns. Patient verbalized understanding and denied any further needs at this time. Vital Signs: Performed on 02/26/2020 8:34 AM BMI - 40.51 kg/m2 (high), Height - 64.00 in, Weight - 236.0 lbs, Temperature - 98.6 f, Pulse - 78, Respiration - 18, O2 Sat - 98 %, Pain - 0 and BP - 132/ 70 mm(hg). Signed by: Althea Vogel>02/26/2020 9:52:16 AM <<Signature on File>>
--- NOTE | 2020-03-04 09:38 | ONCRAD TMN_ITS ---
Radiation Oncology Weekly Treatment Management Patient: Gisel Shipley MR#: [id number] : 1955> Age: 64> Sex: Female Dictated by: Dr. Albert Sheikh Date of Service: 03/04/2020 Referring Physician(s) : Mary Lee M.D. Primary Diagnosis: C50.412 - Malignant neoplasm of upper-outer quadrant of left female breast, Diagnosed 01/22/2020 (Active) Z17.0 - Estrogen receptor positive status [ER+], Diagnosed 10/31/2019 (Active) C50.412 - Malignant neoplasm of upper-outer quadrant of left female breast, Diagnosed 10/31/2019 (Active) Radiotherapy to date: Course: [facility] 2019, Treatment Site: [id number], Ref. ID: [id number], Energy: 15X/6X, Dose/Fx (cGy): 266, #Fx: , Dose Correction (cGy): 0, Total Dose (cGy): 1,862, Start Date: 02/25/2020, Elapsed Days: 8 Current Complaints/Interval History: MS Shpiley has completed 1862 cGy in 7 fractions. She was noted to have mild erythema of the left breast last week. Discomfort has been minimal. She is on anastrozole and continues it during radiation. She has hot flashes and night sweats that appear to be related to the anastrozole. She says they have improved some recently. Her fatigue is mild. The edema noted in her feet last week is not present this morning. Her exam reveals her lungs to be completely clear clear. Heart rhythm is regular with no murmur or gallop. The left breast has mild edema in the inner lower quadrant. There is mild erythema of the skin. There is no excessive skin reaction at all. I feel that the erythema is mainly related to mild edema rather than a true skin reaction. She will continue the Aquaphor. The axillary incision and the upper outer quadrant breast incision are intact and there is no evidence of infection. There is no tenderness in the tumor bed area. Overall the cosmetic result is very good at this time. We will continue with treatment according to plan. No questions. Constitutional Complains of mild fatigue. Complains of night sweats which occur every night and also has hot flashes. Denies lack of appetite and fever. ENMT Denies dysphagia. Integumentary Has redness to the left breast. Breasts Denies pain. Cardiovascular Denies arrhythmias and chest pain. Respiratory Complains of cough occasionally. Denies dyspnea and wheezing. Current Medications: Anastrozole, aspirin Adult, calcium + D, levothyroxine Sodium, probiotic. Allergies: Aleve. Vital Signs: Performed on 03/04/2020 8:33 AM BMI - 40.235 kg/m2 (high), Height - 64.00 in, Weight - 234.4 lbs, Temperature - 97.6 f, Pulse - 68, Respiration - 18, O2 Sat - 98 %, Pain - 0 and BP - 113/ 67 mm(hg). Physical Exam: Appears stable, no skin erythema or desquamation. Performance Status: 0 - Fully active, able to carry on all predisease activities without restrictions. (ECOG) Lab: None pending in Radiation Oncology. Test performed on 02/13/2020 2:07 PM Platelet Count - 426 10 3/cmm (high), eGFR - 63.4 ml/min (low) and Alkaline Phosphatase - 133 iu/l (high). Imaging: No new diagnostic imaging was performed since the last weekly treatment visit. All radiation therapy related imaging (including but not limited to kV, MV, and CBCT generated images) was reviewed. Appropriate changes, if any, were made to assure accurate target localization. Impression/Plan: Tolerating treatment well with expected side effects. Continue treatment as planned. CPT: 56527 Signed by: Dr. Jeffrey Sheihk>03/04/2020 9:36:39 AM <<Signature on File>>
--- NOTE | 2020-03-11 08:56 | ONCRAD TMN_ITS ---
Radiation Oncology Weekly Treatment Management Patient: Gisel Shipley MR#: [id number] : 1955> Age: 64> Sex: Female Dictated by: Dr. Jeffrey Sheikh Date of Service: 03/11/2020 Referring Physician(s) : Mary Lee M.D. Primary Diagnosis: C50.412 - Malignant neoplasm of upper-outer quadrant of left female breast, Diagnosed 01/22/2020 (Active) Z17.0 - Estrogen receptor positive status [ER+], Diagnosed 10/31/2019 (Active) C50.412 - Malignant neoplasm of upper-outer quadrant of left female breast, Diagnosed 10/31/2019 (Active) Radiotherapy to date: Course: LT Breast 2019, Treatment Site: [facility] [id number], Ref. ID: [id number], Energy: 15X/6X, Dose/Fx (cGy): 266, #Fx: , Dose Correction (cGy): 0, Total Dose (cGy): 3,192, Start Date: 02/25/2020, End Date: 03/11/2020, Elapsed Days: 15 Current Complaints/Interval History: Her fatigue is stable. She has multiple individuals dependent upon her including her fianc??? who has a history of kidney failure, her elderly aunt, and her father and stepmother. She continues anastrozole. She has mild hot flashes and night sweats that are probably related. She has almost no discomfort at all in her breast. She has mild pruritus. Exam of the breast reveals no edema. The axillary incision and the breast incision are intact. There is no evidence of infection. Neither is tender. There is no palpable fibrosis. The entire breast is soft and nontender. The cosmetic result is excellent thus far. She has an excellent range of motion in the left arm without lymphedema. Constitutional Complains of mild fatigue. Complains of night sweats which occur occasionally. Denies lack of appetite, fever and change in weight. ENMT Denies dysphagia. Integumentary Has redness to the left breast and complains of itching Breasts Denies pain. Cardiovascular Denies arrhythmias, chest pain and edema. Respiratory Denies cough, dyspnea and wheezing. Current Medications: Amoxicillin, anastrozole, anastrozole, aspirin Adult, calcium + D, levothyroxine Sodium, probiotic. Allergies: Aleve. Vital Signs: Performed on 03/11/2020 8:33 AM BMI - 40.475 kg/m2 (high), Height - 64.00 in, Weight - 235.8 lbs, Temperature - 98.1 f, Pulse - 66, Respiration - 18, O2 Sat - 97 %, Pain - 0 and BP - 120/ 68 mm(hg). Physical Exam: Appears stable, no skin erythema or desquamation. Performance Status: 0 - Fully active, able to carry on all predisease activities without restrictions. (ECOG) Lab: None pending in Radiation Oncology. Test performed on 02/13/2020 2:07 PM Platelet Count - 426 10 3/cmm (high), eGFR - 63.4 ml/min (low) and Alkaline Phosphatase - 133 iu/l (high). Imaging: No new diagnostic imaging was performed since the last weekly treatment visit. All radiation therapy related imaging (including but not limited to kV, MV, and CBCT generated images) was reviewed. Appropriate changes, if any, were made to assure accurate target localization. Impression/Plan: Tolerating treatment well with mild side effects. Continue treatment as planned. CPT: 67006 Signed by: Dr. Jeffrey Sheikh>03/11/2020 8:55:20 AM <<Signature on File>>
--- NOTE | 2020-03-18 09:16 | ONCRAD TMN_ITS ---
Radiation Oncology Weekly Treatment Management Patient: Gisel Shipley MR#: [id number] : 1955> Age: 64> Sex: Female Dictated by: Dr. Jeffrey Sheikh Date of Service: 03/18/2020 Referring Physician(s) : Mary Lee M.D. Diagnosis: C50.412 - Malignant neoplasm of upper-outer quadrant of left female breast, Diagnosed 01/22/2020 (Active) Z17.0 - Estrogen receptor positive status [ER+], Diagnosed 10/31/2019 (Active) C50.412 - Malignant neoplasm of upper-outer quadrant of left female breast, Diagnosed 10/31/2019 (Active) Radiotherapy to date: Course: LT Breast 2019, Treatment Site: [id number], Ref. ID: [id number], Energy: 15X/6X, Dose/Fx (cGy): 250, #Fx: 1 / 4, Dose Correction (cGy): 0, Total Dose (cGy): 250, Start Date: 03/18/2020, End Date: 03/18/2020, Elapsed Days: 0 Treatment Site: LT [id number], Ref. ID: [id number], Energy: 15X/6X, Dose/Fx (cGy): 266, #Fx: 16 / 16, Dose Correction (cGy): 0, Total Dose (cGy): 4,256, Start Date: 02/25/2020, End Date: 03/17/2020, Elapsed Days: 21 Chief Complaint/History of Present Illness: Left breast cancer tumor dose 4506 cGy in 17 fractions. Her fatigue is stable. Hot flashes and night sweats related to anastrozole are diminishing. She is still doing extremely well with regard to the breast. She has developed a little soreness in the inframammary area and has noticed an increase skin reaction. She continues to assist multiple people in her family with various issues and there is been no change in her overall activity level. She has no pain or stiffness in the left shoulder. She has not noticed any swelling. Mrs. Gisel Shipley, is a 64-year-old female with history of right breast lumpectomy at age 18, as per patient since then she has been examining breast and recently noted mass in her left breast for which she underwent mammogram on 09/21/2019 which showed left breast is composed of heterogeneous fibroglandular density tissue, asymmetric breast tissue left greater than right upper outer quadrant unchanged. No definite mammographic abnormalities deep to the palpable marker. Subsequently patient underwent ultrasound of left breast at 12- 2:00 position. Hypoechoic shadowing lesion at 2:00 position 4 cm from the nipple is suspicious for neoplasm and it measures 1.3 x 0.9 x 1.4 cm. Patient underwent ultrasound-guided left breast biopsy on 10/17/2019 which showed invasive mammary carcinoma with focal lobular feature, grade 2, tumor involves all 5 cores., Prognostic profiling shows ER/DE strongly positive, HER-2/tony 2+, but negative for HER-2/tony overexpression by IHC and over amplification by FISH. Ki-67 was 36% which is high e.g. unfavorable.Underwent left breast lumpectomy with sentinel lymph node biopsy on 12/06/2019 final pathology report showed 2.5 cm invasive lobular carcinoma with clear surgical margins , T2 and 3 sentinel lymph node were examined showed no evidence of metastatic disease N0 Started on Arimidex 1 mg by mouth daily along with vitamin D and calcium supplement on 01/17/2020, Oncotype DX score checked on 01/20/2020 showed recurrence score 14 e.g. low, risk of distant recurrence is about 4% with aromatase inhibitor and average absolute chemotherapy benefit less than 1%. No family history of breast cancer No history of hormonal supplement. Patient denies any nipple discharge, denies any nipple retraction. Denies any left axillary fullness. Denies any bony pains. Denies any fever or chills. Came for follow-up, denies any specific complaints except off and on hot flashes, otherwise tolerating Arimidex/vitamin D/calcium well, no fever or chills, no diarrhea constipation, no skin rash, no jaundice. Current Medications: Anastrozole, anastrozole, aspirin Adult, calcium + D, levothyroxine Sodium, probiotic. Allergies: Aleve. Current Complaints/Review of Systems: Constitutional - Complains of mild fatigue. Denies lack of appetite, fever, night sweats and change in weight. ENMT - Denies dysphagia. Integumentary - Has desquamation under the left breast and redness. Breasts - Denies pain. Cardiovascular - Denies arrhythmias and chest pain. Respiratory - Denies cough, dyspnea and wheezing. Vital Signs: Performed on 03/18/2020 8:38 AM BMI - 40.475 kg/m2 (high), Height - 64.00 in, Weight - 235.8 lbs, Temperature - 98.2 f, Pulse - 62, Respiration - 20, O2 Sat - 98 %, Pain - 0 and BP - 127/ 66 mm(hg). Physical Exam: The breast has minimal edema. The skin of the breast itself shows mild hyperpigmentation and erythema. In the inframammary area she has moderate dry desquamation. No area of moist desquamation. She is applying Aquaphor with good results. The tumor bed has minimal fibrosis and is nontender to palpation. The axillary incision is intact and there is no induration or lymphadenopathy. It appears the cosmetic result will be excellent. Performance Status: 0 - Fully active, able to carry on all predisease activities without restrictions. (ECOG) Lab: None pending in Radiation Oncology. Test performed on 02/13/2020 2:07 PM Platelet Count - 426 10 3/cmm (high), eGFR - 63.4 ml/min (low) and Alkaline Phosphatase - 133 iu/l (high). Imaging: No new diagnostic imaging was performed since the last weekly treatment visit. All radiation therapy related imaging (including but not limited to kV, MV, and CBCT generated images) was reviewed. Appropriate changes, if any, were made to assure accurate target localization. Impression/Plan: Tolerating treatment well with expected side effects. Continue treatment as planned. Continue Aquaphor. The inframammary area is outside the boost volume and so it should heal within a week or so. She was told she may apply Neosporin with pain relief if needed. We discussed that she will be due for mammography 6 months after surgery. CPT: 04397 Signed by: Dr. Jeffrey Sheikh>03/18/2020 9:16:04 AM <<Signature on File>>
== END 2020-03-18 23:59 | disposition home or self-care (01) ==
LOC: ONCMED 06:50
PROVIDERS: PCP Family Medicine; Visit Provider Specialist
DX: Z51.0 Encounter for antineoplastic radiation therapy (principal); C50.412 Malignant neoplasm of upper-outer quadrant of left female breast; Z17.0 Estrogen receptor positive status [ER+]
CPT/HCPCS: 77280; 77295; 77300; 77307; 77334; 77336; 77412; 77417

== ENCOUNTER 2020-03-24 06:46 | Outpatient (RCR) | payer BC, SELFPAY | END 2020-04-18 23:59 | disposition home or self-care (01) | LOC: ONCMED 06:46 | PROVIDERS: PCP Family Medicine; Visit Provider Radiology Radiation Oncology | DX: Z51.0 Encounter for antineoplastic radiation therapy (principal); C50.412 Malignant neoplasm of upper-outer quadrant of left female breast; Z17.0 Estrogen receptor positive status [ER+]; L58.0 Acute radiodermatitis; Y84.2 Radiological procedure and radiotherapy as the cause of abnormal reaction of the patient, or of later complication, without mention of misadventure at the time of the procedure | CPT/HCPCS: 77336; 77412 ==

== ENCOUNTER 2020-05-15 05:36 | Outpatient (RCR) | payer BC, SELFPAY ==
--- NOTE | 2020-04-24 11:15 | ONCRAD EPV_ITS ---
Radiation Oncology Established Patient Visit Patient: Quinten Batres [id number] : 1955> Age: 64> Sex: Female> Dictated by: Dr. Jonathan Norwood Date of Service: 04/24/2020 Referring Physician(s) : Mary Lee M.D. 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 Treatment rendered: -) Lumpectomy and sentinel lymph node biopsy (Dr Gong 12/06/2019). Pathology revealed a single focus of grade 2 invasive mammary carcinoma, pleomorphic lobular type, measuring 2.5 cm in greatest dimension, margins negative by 5 mm, no lymphovascular invasion, 0/3 involved lymph nodes, Oncotype DX score = 14, -) Adjuvant radiation therapy to a total dose of 42.56 Gy in 16 fractions followed by a lumpectomy cavity boost of 10 Gy in 4 fractions (02/25/2020-03/24/2020). -) Endocrine therapy with Anastrozole (first prescribed 01/07/2020). Patient is tolerating this reasonably well with moderate vasomotor symptoms. Current History: The patient is seen in follow-up approximately 1 month after completing radiation therapy, and she reports that her acute side effects from treatment have resolved well. She reports no breast pain, no range of motion difficulties, but she is having tolerable vasomotor symptoms associated with endocrine therapy. Current Medications: Anastrozole, anastrozole, aspirin Adult, calcium + D, doxepin HCl, levothyroxine Sodium, probiotic. Allergies: Aleve. Current Complaints / Review of Systems: Constitutional - Complains of night sweats which occur occasionally. Denies lack of appetite, fatigue, fever and change in weight. Eyes - Denies blurred vision and double vision. ENMT - Denies dysphagia, ear pain, mouth dryness, stomatitis and altered taste. Neck - Denies neck pain. Integumentary - Denies rash. Breasts - Complains of pain in the left breast which happens occasionally. Cardiovascular - Denies arrhythmias, chest pain and edema. Respiratory - Denies cough, dyspnea and wheezing. Gastrointestinal - Denies abdominal pain, constipation, diarrhea, heartburn / dyspepsia, melena / GI bleeding, nausea and vomiting. Genitourinary (F) - Denies dysuria, frequency and urgency. Musculoskeletal - Denies bone pain, joint pain and muscle weakness. Neurologic - Denies dizziness, abnormal gait and headaches. Endocrine - Complains of thyroid disease. Denies diabetes. Hematologic/Lymphatic - Denies tender or enlarged lymph nodes.. Vital Signs: Performed on 04/24/2020 9:09 AM BMI - 40.853 kg/m2 (high), Height - 64.00 in, Weight - 238.0 lbs, Temperature - 97.9 f, Pulse - 64, Respiration - 20, O2 Sat - 96 %, Pain - 0, Fatigue - 0 and BP - 109/ 75 mm(hg). Physical Exam: General: Alert and oriented x 3. No acute distress. HEENT: Normocephalic, atraumatic. Extraocular Movements Intact: Pupils Equal, Round, Reactive to Light and Accommodation: Sclerae anicteric. Oral cavity is clear without lesions, masses or ulcers. NECK: Supple without supraclavicular or jugular lymphadenopathy. Breast: Well-healed surgical scar is appreciated in the upper outer quadrant of the left breast. Acute side effects from radiation therapy have resolved. There is no palpable evidence of disease persistence. There is no axillary adenopathy bilaterally. LUNGS: Clear to auscultation bilaterally without rales, rhonchi or wheeze. HEART: Regular rate and rhythm, normal S1 and S2 without murmur, gallop or rub. MUSCULOSKELETAL: No tenderness or percussion pain over the axial skeleton, scapulae or pelvis. ABDOMEN: Soft, nontender, nondistended without masses or organomegaly. Bowell sounds are present. EXTREMITIES: No peripheral edema is identified. Limited motor and sensory examination are grossly intact and symmetric bilaterally. NEUROLOGIC: Cranial nerves II ???XII are grossly intact. Normal sensation, strength 5/5 in all extremities, normal gait, no ataxia. Performance Status: 0 - Fully active, able to carry on all predisease activities without restrictions. (ECOG) Lab: None pending. Test performed on 02/13/2020 2:07 PM Platelet Count - 426 10 3/cmm (high), eGFR - 63.4 ml/min (low) and Alkaline Phosphatase - 133 iu/l (high). 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 She was treated with a lumpectomy and sentinel lymph node biopsy (Dr Gong 12/06/2019), followed by adjuvant radiation therapy to a total dose of 42.56 Gy in 16 fractions and a lumpectomy cavity boost of 10 Gy in 4 fractions (02/25/2020-03/24/2020), followed by Anastrozole (first prescribed 01/07/2020). Patient is tolerating endocrine therapy reasonably well with moderate vasomotor symptoms. She is seen today in follow-up, and her acute side effects from radiation therapy have resolved. Recommended oncologic surveillance plan: -) History and physical exam 1-4 times per year x 5 years, then annually thereafter -) Annual mammogram. The patient's first new post treatment ???baseline mammogram??? should be completed 6 to 12 months status post radiation therapy. -) Recommend an active lifestyle, healthy diet, limited alcohol intake, and achieving/maintaining an ideal body weight of 20-25 BMI -) Bone mineral density study at baseline and periodically as deemed appropriate by medical oncology. Signed by: 04/24/2020 11:14:05 AM <<Signature on File>> Time spent with patient: CPT Code: CPT Code:
[2020-05-15 12:27] LABS: Basophils # 0.1 10^3/uL (0.0-0.1); Basophils % 1.1 %; Eosinophils # 0.2 10^3/uL (0.0-0.8); Eosinophils % 2.6 %; Hematocrit 43.5 % (37.0-47.0); Hemoglobin 13.7 g/dL (11.5-15.3); Lymphocytes # 1.4 10^3/uL (0.8-4.8); Lymphocytes % 20.4 %; Mean Corpuscular HGB Conc 31.5 g/dL (30.0-36.0); Mean Corpuscular Hemoglobin 30.4 pg (28.0-34.0); Mean Corpuscular Volume 96.7 fL (81-99); Mean Platelet Volume 9.8 fL (7.4-10.4); Monocytes # 0.4 10^3/uL (0.2-0.9); Monocytes % 5.2 %; Neutrophils % 70.4 %; Nucleated Red Blood Cells % 0 %; Platelet Count 338 10^3/cmm (130-400); Red Cell Distribution Width 13.2 % (12.1-15.1)
[2020-05-15 13:04] LABS: Alanine Aminotransferase 17 U/L (0-33); Albumin Level 3.9 g/dL (3.5-5.2); Alkaline Phosphatase 113 IU/L (35-105); Anion Gap 14.1 (5-19); Aspartate Amino Transferase 14 U/L (0-32); Blood Urea Nitrogen 11 mg/dL (8-23); Calcium 9.3 mg/dL (8.5-10.5); Carbon Dioxide 23 mmol/L (22-29); Chloride 104 mmol/L (98-107); Globulin 3.1 g/dL (1.3-4.6); Glomerular Filtration Rate 63.4 mL/min (90-130); Glucose 121 mg/dL (65-115); Osmolality Calculated 281 mOsm/kg (285-295); Potassium 4.1 mmol/L (3.5-5.1); Sodium 137 mmol/L (136-145); Total Bilirubin 0.2 mg/dL (0.15-1.2)
--- NOTE | 2020-05-15 16:57 | ONC FU_ITS ---
Dr. Roberts follow up note Patient: Gisel Shipley Unit #: [id number]: 1955 Dicatated By: Roosevelt Roberts M.D.Date of Visit:May 15, 2020 Onc Med Follow-up/Prog Note History of Present Illness: Mrs. Gisel Shipley, is a 64-year-old female with history of right breast lumpectomy at age 18, as per patient since then she has been examining breast and recently noted mass in her left breast for which she underwent mammogram on 09/21/2019 which showed left breast is composed of heterogeneous fibroglandular density tissue, asymmetric breast tissue left greater than right upper outer quadrant unchanged. No definite mammographic abnormalities deep to the palpable marker. Subsequently patient underwent ultrasound of left breast at 12- 2:00 position. Hypoechoic shadowing lesion at 2:00 position 4 cm from the nipple is suspicious for neoplasm and it measures 1.3 x 0.9 x 1.4 cm. Patient underwent ultrasound-guided left breast biopsy on 10/17/2019 which showed invasive mammary carcinoma with focal lobular feature, grade 2, tumor involves all 5 cores., Prognostic profiling shows ER/AL strongly positive, HER-2/tony 2+, but negative for HER-2/tony overexpression by IHC and over amplification by FISH. Ki-67 was 36% which is high e.g. unfavorable.Underwent left breast lumpectomy with sentinel lymph node biopsy on 12/06/2019 final pathology report showed 2.5 cm invasive lobular carcinoma with clear surgical margins , T2 and 3 sentinel lymph node were examined showed no evidence of metastatic disease N0 Started on Arimidex 1 mg by mouth daily along with vitamin D and calcium supplement on 01/17/2020, Oncotype DX score checked on 01/20/2020 showed recurrence score 14 e.g. low, risk of distant recurrence is about 4% with aromatase inhibitor and average absolute chemotherapy benefit less than 1%. Status post postlumpectomy radiation therapy to the left breast from February 25, 2020 till March 24, 2020 No family history of breast cancer No history of hormonal supplement. Came for follow-up, denies any specific complaints, no nausea or vomiting, no diarrhea constipation, no headaches blurred vision double vision, patient tolerated postlumpectomy radiation therapy well, no tolerating Arimidex well but with expected side effects e.g. hot flashes but manageable Medications: Anastrozole 1 Tablet (of 1 mg) Oral daily, Aspirin Adult 1 Tablet (of 325 mg) Oral daily, Calcium + D 2 Tablet (of 600 mg) Oral daily, Doxepin HCl 1 Capsule (of 100 mg) Capsule Oral at bedtime, Levothyroxine Sodium 1 Tablet (of 100 mcg) Oral daily, Probiotic 1 Capsule Oral daily Allergies: Aleve Review of Systems: Review of Systems is not available for this patient. Vital Signs: Performed on May 15, 2020 13:19 Height - 64.00 in Weight - 240.6 lbs (HIGH) BSA - 2.12 sq.m BMI - 41.30 (HIGH) Temperature - 98.0 F (LOW) Pulse - 81 /min Respiration - 24 /min BP - 137/71 mm(hg) O2 Sat - 98 % Pain - 0 Performance Status: 0 - Fully active, able to carry on all predisease activities without restrictions. (ECOG) Physical Examination: Respiratory - Lungs are clear, Cardiovascular - Regular rate and rhythm of heart, Gastrointestinal - Soft, bowel sounds present, Extremities - No edema or rash. Lab/Imaging: Test performed on February 13, 2020 14:07 Sodium 139 mmol/L Potassium 4.2 mmol/L Chloride 103 mmol/L CO2 27 mmol/L Anion Gap 13.2 BUN 11 mg/dL Creatinine 0.9 mg/dL Cr Clearance (Est) 111.01 mL/min eGFR 63.4 mL/min Glucose 113 mg/dL Calcium 10.5 mg/dL Protein, Total 7.3 g/dL Albumin 4.3 g/dL Globulin 3.0 g/dL Bilirubin, Total 0.2 mg/dL ALT (SGPT) 18 U/L AST (SGOT) 17 U/L Alkaline Phosphatase 133 IU/L WBC 9.8 10 3/uL RBC 4.67 10 6/uL HGB 13.8 g/dL HCT 43.0 % MCV 92.1 fL MCH 29.6 pg MCHC 32.1 g/dL RDW 13.7 % Platelet Count 426 10 3/cmm MPV 9.9 fL Neutrophils 6.4 10 3/uL Lymphocytes 2.3 10 3/uL Monocytes 0.6 10 3/uL Eosinophils 0.4 10 3/uL Basophils 0.1 10 3/uL Neutrophil % 65.6 % Lymphocyte % 23.6 % Monocyte % 5.8 % Eosinophil % 3.6 % Basophils % 1.1 % Impression: Invasive mammary carcinoma with focal lobular features, grade 2 per ultrasound-guided left breast biopsy done on 10/17/2019 status post lumpectomy Done on 12/06/2019 showed 2.5 cm invasive lobular carcinoma with clear surgical margins T2, 3 sentinel lymph nodes were examined showed no evidence of metastatic disease N0 stage IIa ER 91% positive, AL 89% positive, HER-2/tony negative. Oncotype DX score was 14, low risk, risk of distant recurrence is about 4% with aromatase inhibitor and no significant benefit from chemotherapy Started on Arimidex 1 mg p.o. daily for 5 years along with vitamin D and calcium supplement on March 18, 2020 status post postlumpectomy radiation therapy started on February 25, 2020 and completed on March 24, 2020 Ultrasound left breast done on 09/21/2019 showed 1.3 x 0.9 x 1.4 cm mass at 2:00 position left breast. Plan: Discussed with patient regarding her labs white blood count 7 hemoglobin 13.7 crit 43.5 platelets 338,000 CMP within normal limits Clinically, patient is doing well with no new signs symptom suggestive of recurrence of disease, tolerating adjuvant therapy with Arimidex/vitamin D/calcium well but with expected side effects e.g. occasionally hot flashes. Patient has completed postlumpectomy radiation since her last visit. We will continue to monitor she will return to clinic in 6 months with CMP Signed By: Roosevelt Roberts M.D. <<Signature on File>>
== END 2020-05-19 23:59 | disposition home or self-care (01) ==
LOC: ONCMED 05:36
PROVIDERS: PCP Family Medicine; Visit Provider Internal Medicine Hematology & Oncology
DX: C50.412 Malignant neoplasm of upper-outer quadrant of left female breast (principal); Z17.0 Estrogen receptor positive status [ER+]; Z79.811 Long term (current) use of aromatase inhibitors; Z92.3 Personal history of irradiation
CPT/HCPCS: 80053; 85025; 99214

== ENCOUNTER 2020-09-22 09:40 | Outpatient (CLI) | payer OTHER, SELFPAY ==
--- NOTE | 2020-09-22 09:46 | MM_ITS ---
WS: [id number] BILATERAL DIGITAL DIAGNOSTIC MAMMOGRAM MAMMOGRAPHY WITH CAD CLINICAL INFORMATION: HX OF BREAST CA COMPARISON: September 21, 2019 TECHNIQUE: Bilateral CC, MLO, and ML views. FINDINGS: The breasts are composed of heterogeneous fibroglandular density, which can limit the detection of sm all underlying mass lesions. New ovoid focal asymmetric density posterior medial right breast adjacen t to the chest wall. This lesion measures approximately 1.6 x 1.3 cm and has a suspicious appearance. Recommend further evaluation with ultrasound. Postoperative changes left breast with lumpectomy. Trabecular thickening with skin thickening due to treatment effect. No other significant changes. IMPRESSION: MM/[place] [id number] BI-RADS: 0-Incomplete: Need additional imaging evaluation FOLLOW UP: Need Additional Imaging RECOMMEND RIGHT BREAST DIAGNOSTIC MAMMOGRAPHY AND ULTRASOUND
== END 2020-09-22 09:41 | disposition home or self-care (01) ==
LOC: RADSHAW 09:44
PROVIDERS: PCP Family Medicine; Visit Provider Radiology Radiation Oncology
DX: Z85.3 Personal history of malignant neoplasm of breast (principal); N64.89 Other specified disorders of breast
CPT/HCPCS: 77066

== ENCOUNTER 2020-10-02 14:03 | Outpatient (RCR) | payer OTHER, SELFPAY ==
--- NOTE | 2020-10-02 14:11 | US_ITS ---
WS: [id number] ULTRASOUND BREAST RIGHT TECHNIQUE: Ultrasound right breast focused area of concern. CLINICAL INFORMATION: BREAST CANCER COMPARISON: and September 22, 2020 FINDINGS: Ultrasound breast right-3:00 position. Hypoechoic solid nodule at the 3:00 position 6 cm from the nip ple measuring 1.7 x 1.2 x 0.9 CM. This lesion is taller than wide and is solid in appearance. This le deanna has a suspicious appearance and recommend further evaluation with ultrasound-guided biopsy. US/US breast RT limited* [id number] IMPRESSION: BI-RADS 4 FOLLOW UP: RECOMMEND FURTHER EVALUATION WITH ULTRASOUND-GUIDED BIOPSY.
== END 2020-10-19 23:59 | disposition home or self-care (01) ==
LOC: RAD 14:03
PROVIDERS: PCP Family Medicine; Visit Provider Internal Medicine Hematology & Oncology
DX: N64.9 Disorder of breast, unspecified (principal)
CPT/HCPCS: 76642

== ENCOUNTER 2020-10-22 13:52 | Outpatient (CLI) | payer OTHER, SELFPAY ==
--- NOTE | 2020-10-22 14:00 | MM_ITS ---
WS: [id number] RIGHT DIGITAL MAMMOGRAPHY WITH CAD CLINICAL INFORMATION: Right Breast nodule COMPARISON: 10/02/2020 and 09/22/2020 TECHNIQUE: 3 views of the right breast were obtained. FINDINGS: Diagnostic Mammogram obtained for Correlation with recent ultrasound. Scattered fibroglandular densities of the right breast. Again seen is the slightly spiculated ovoid f ocal asymmetric density posterior medial right breast adjacent to the chest wall. This is unchanged i n appearance measuring 1.6 x 1.3 cm with a solid appearance on ultrasound. Patient already scheduled for ultrasound-guided biopsy. MM/[place] [id number] IMPRESSION: BI-RADS: 4-Suspicious Finding-Biopsy Should Be Considered FOLLOW UP: US Guided Biopsy Recommended
== END 2020-10-22 13:53 | disposition home or self-care (01) ==
LOC: RADSHAW 13:54
PROVIDERS: PCP Family Medicine; Visit Provider Internal Medicine Hematology & Oncology
DX: N63.10 Unspecified lump in the right breast, unspecified quadrant (principal)
CPT/HCPCS: 77065

== ENCOUNTER 2020-10-27 11:55 | Outpatient (CLI) | payer OTHER, SELFPAY ==
--- NOTE | 2020-10-27 | US_ITS ---
WS: [id number] ULTRASOUND-GUIDED RIGHT BREAST BIOPSY CLINICAL INFORMATION: BREAST MASS COMPARISON: None. FINDINGS: The procedure including risks, benefits, and complications were discussed with the patient who agreed to proceed. Using sterile technique patient was prepped and draped in the usual sterile fashion. Aft er 1% lidocaine utilizing real-time ultrasound guidance 5 14-gauge cores were obtained of the right b reast lesion at the 3 o'clock position. Subsequently a titanium clip was placed in the biopsy cavity. No immediate complications. PATHOLOGY DEMONSTRATES: A. Breast, right breast mass , ultrasound-guided biopsy: -Metaplastic carcinoma with chondroid, sarcomatoid and osteoid differentiation. -Braxton Gay grade 3 (score 9). -Ancillary studies have been performed. US/[place] [id number] IMPRESSION: 1. Uncomplicated ultrasound-guided right breast biopsy. 2. The pathology demonstrates metaplastic carcinoma with chondroid, sarcomatoi d, and osteoid differentiation. See pathology report for further detail. BI-RADS: 6-Known Biopsy-Proven Malignancy FOLLOW UP: Surgical Biopsy Recommended RECOMMEND BREAST SURGERY CONSULTATION FOR RESECTION.
[2020-11-03 08:54] LABS: Miscellaneous Test See Scanned Lab Rpt
== END 2020-10-27 11:56 | disposition home or self-care (01) ==
LOC: RAD 11:57
PROVIDERS: PCP Family Medicine; Visit Provider Internal Medicine Hematology & Oncology
DX: N63.15 Unspecified lump in the right breast, overlapping quadrants (principal); C50.811 Malignant neoplasm of overlapping sites of right female breast
CPT/HCPCS: 19083; 88305; 88361; 88367; 88374

== ENCOUNTER 2020-11-14 05:59 | Outpatient (RCR) | payer OTHER, SELFPAY ==
[2020-11-14 08:36] LABS: Basophils # 0.1 10^3/uL (0.0-0.1); Eosinophils # 0.1 10^3/uL (0.0-0.8); Eosinophils % 1.2 %; Hematocrit 43.9 % (37.0-47.0); Hemoglobin 14.5 g/dL (11.5-15.3); Lymphocytes # 1.7 10^3/uL (0.8-4.8); Lymphocytes % 24.1 %; Mean Corpuscular Hemoglobin 30.9 pg (28.0-34.0); Mean Corpuscular Volume 93.6 fL (81-99); Mean Platelet Volume 9.4 fL (7.4-10.4); Monocytes # 0.5 10^3/uL (0.2-0.9); Monocytes % 6.6 %; Neutrophils # 4.64 10^3/uL (1.8-7.7); Neutrophils % 66.8 %; Nucleated Red Blood Cells % 0 %; Platelet Count 398 10^3/cmm (130-400); Red Blood Count 4.69 10^6/uL (4.1-5.3); Red Cell Distribution Width 12.6 % (12.1-15.1); White Blood Count 6.9 10^3/uL (4.0-10.0)
[2020-11-14 08:55] LABS: Alanine Aminotransferase 24 U/L (0-33); Albumin Level 4.1 g/dL (3.5-5.2); Alkaline Phosphatase 140 IU/L (35-105); Anion Gap 12.4 (5-19); Aspartate Amino Transferase 18 U/L (0-32); Blood Urea Nitrogen 10 mg/dL (8-23); Calcium 9.9 mg/dL (8.5-10.5); Carbon Dioxide 28 mmol/L (22-29); Chloride 101 mmol/L (98-107); Globulin 3.2 g/dL (1.3-4.6); Glomerular Filtration Rate 72.4 mL/min (90-130); Glucose 92 mg/dL (65-115); Osmolality Calculated 283 mOsm/kg (285-295); Potassium 4.4 mmol/L (3.5-5.1); Sodium 137 mmol/L (136-145); Total Bilirubin 0.3 mg/dL (0.15-1.2); Total Protein 7.3 g/dL (6.6-8.7)
--- NOTE | 2020-11-14 12:17 | ONC FU_ITS ---
Dr. Roberts follow up note Patient: Gisel Shipley Unit #: [id number]: 1955 Dicatated By: Roosevelt Roberts M.D.Date of Visit:Nov 14, 2020 Onc Med Follow-up/Prog Note History of Present Illness: Mrs. Gisel Shipley, is a 65-year-old female with history of right breast lumpectomy at age 18, as per patient since then she has been examining breast and recently noted mass in her left breast for which she underwent mammogram on 09/21/2019 which showed left breast is composed of heterogeneous fibroglandular density tissue, asymmetric breast tissue left greater than right upper outer quadrant unchanged. No definite mammographic abnormalities deep to the palpable marker. Subsequently patient underwent ultrasound of left breast at 12- 2:00 position. Hypoechoic shadowing lesion at 2:00 position 4 cm from the nipple is suspicious for neoplasm and it measures 1.3 x 0.9 x 1.4 cm. Patient underwent ultrasound-guided left breast biopsy on 10/17/2019 which showed invasive mammary carcinoma with focal lobular feature, grade 2, tumor involves all 5 cores., Prognostic profiling shows ER/ID strongly positive, HER-2/tony 2+, but negative for HER-2/tony overexpression by IHC and over amplification by FISH. Ki-67 was 36% which is high e.g. unfavorable.Underwent left breast lumpectomy with sentinel lymph node biopsy on 12/06/2019 final pathology report showed 2.5 cm invasive lobular carcinoma with clear surgical margins , T2 and 3 sentinel lymph node were examined showed no evidence of metastatic disease N0 Started on Arimidex 1 mg by mouth daily along with vitamin D and calcium supplement on 01/17/2020, Oncotype DX score checked on 01/20/2020 showed recurrence score 14 e.g. low, risk of distant recurrence is about 4% with aromatase inhibitor and average absolute chemotherapy benefit less than 1%. Status post postlumpectomy radiation therapy to the left breast from February 25, 2020 till March 24, 2020 No family history of breast cancer No history of hormonal supplement. 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, sarcomatoid and osteoid differentiation, ER/ID weakly positive 60% / 55% respectively and HER-2/tony positive IHC 3+, positive for HER-2/tony overexpression Came for follow-up, denies any specific complaints, no fever chills, no nausea or vomiting, no diarrhea constipation, no new bony pains, tolerating Arimidex well but with occasional hot flashes Medications: Anastrozole 1 Tablet (of 1 mg) Oral daily, Aspirin Adult 1 Tablet (of 325 mg) Oral daily, Calcium + D 2 Tablet (of 600 mg) Oral daily, Doxepin HCl 1 Capsule (of 100 mg) Capsule Oral at bedtime, Levothyroxine Sodium 1 Tablet (of 100 mcg) Oral daily, Probiotic 1 Capsule Oral daily Allergies: Aleve Review of Systems: Review of Systems is not available for this patient. Vital Signs: Performed on Nov 14, 2020 10:00 Height - 64.00 in Weight - 243.2 lbs (HIGH) BSA - 2.13 sq.m BMI - 41.75 (HIGH) Temperature - 96.9 F (LOW) Pulse - 78 /min Respiration - 19 /min BP - 142/65 mm(hg) (HIGH) O2 Sat - 97 % Pain - 0 Performance Status: 0 - Fully active, able to carry on all predisease activities without restrictions. (ECOG) Physical Examination: Respiratory - Lungs are clear to auscultation, Cardiovascular - Regular rate and rhythm of heart, Gastrointestinal - Soft, bowel sounds present, Extremities - No visible edema. Lab/Imaging: Most recent lab results are not available for this patient. Impression: Newly diagnosis metaplastic carcinoma with chondroid, sarcomatoid, osteoid differentiation per ultrasound-guided biopsy of right breast done on October 27, 2020 ER/ID weakly positive at 60% / 55% HER-2/tony positive IHC 3+, and HER-2/tony overexpression and gene over amplification Invasive mammary carcinoma with focal lobular features, grade 2 per ultrasound-guided left breast biopsy done on 10/17/2019 status post lumpectomy Done on 12/06/2019 showed 2.5 cm invasive lobular carcinoma with clear surgical margins T2, 3 sentinel lymph nodes were examined showed no evidence of metastatic disease N0 stage IIa ER 91% positive, ID 89% positive, HER-2/tony negative. Oncotype DX score was 14, low risk, risk of distant recurrence is about 4% with aromatase inhibitor and no significant benefit from chemotherapy Started on Arimidex 1 mg p.o. daily for 5 years along with vitamin D and calcium supplement on March 18, 2020 status post postlumpectomy radiation therapy started on February 25, 2020 and completed on March 24, 2020 Ultrasound left breast done on 09/21/2019 showed 1.3 x 0.9 x 1.4 cm mass at 2:00 position left breast. Plan: Discussed with patient regarding labs white blood count 6.9 hemoglobin 14.5 hematocrit 43.9 platelets 398,000 CMP within normal limits and her right breast biopsy and pathology which showed metaplastic carcinoma with chondroid, sarcomatoid, osteoid differentiation, ER/ID weakly positive and HER-2/tony positive Clinically, patient is doing well with no new signs symptoms right breast lesion was incidental finding on her right breast and case was discussed with pathology, as per pathology this is a very aggressive form of malignancy most likely breast is a primary, molecular profiling showed ER/ID weakly positive and HER-2/tony positive, at this point will refer her to Dr. Gong, she has seen him before for her left breast cancer, will consider lumpectomy with right axillary sentinel and lymph node biopsy and also consider right axillary sonogram for questionable right axilla fullness. And also request Dr. Gong for Port-A-Cath placement as patient has HER-2/tony positive disease which will require Herceptin based regimen We will also request for echocardiogram. Patient will return to clinic after Right axillary sonogram Signed By: Roosevelt Roberts M.D. <<Signature on File>>
== END 2020-11-16 23:59 | disposition home or self-care (01) ==
LOC: ONCMED 05:59
PROVIDERS: PCP Family Medicine; Visit Provider Internal Medicine Hematology & Oncology
DX: C50.412 Malignant neoplasm of upper-outer quadrant of left female breast (principal); Z17.0 Estrogen receptor positive status [ER+]; Z90.12 Acquired absence of left breast and nipple; E55.9 Vitamin D deficiency, unspecified; E83.51 Hypocalcemia; Z79.811 Long term (current) use of aromatase inhibitors; Z79.899 Other long term (current) drug therapy
CPT/HCPCS: 80053; 85025; 99215

== ENCOUNTER → 2020-11-27 10:34 | Outpatient (BNVA) | payer OTHER, SELFPAY | PROVIDERS: PCP Family Medicine; Visit Provider Surgery | DX: C50.911 Malignant neoplasm of unspecified site of right female breast; Z11.52 Encounter for screening for COVID-19 | CPT/HCPCS: 87635 ==

== ENCOUNTER 2020-12-01 09:17 | Outpatient (CLI) | payer OTHER, SELFPAY ==
--- NOTE | 2020-12-01 09:24 | USCV_ITS ---
Gisel Shipley Age: 65 Gender: F : 1955 Exam Date: 12/01/2020 09:57 Ordering Phys: Roosevelt Roberts MD Technologist: Bee Manley Exam Location: [facility] – [place] Indication: HIGH RISK MEDICATION BP: 94 / 46 HR: 70 Rhythm: Sinus Technical Quality: Suboptimal MEASUREMENTS (Male / Female) Normal Values 2D ECHO LV Diastolic Diameter PLAX 3.5 cm 4.2 - 5.9 / 3.9 - 5.3 cm LV Systolic Diameter PLAX 2.1 cm IVS Diastolic Thickness 1.8 cm 0.6 - 1.0 / 0.6 - 0.9 cm IVS Systolic Thickness 2.0 cm LVPW Diastolic Thickness 1.0 cm 0.6 - 1.0 / 0.6 - 0.9 cm LVPW Systolic Thickness 1.1 cm LVOT Diameter 2.0 cm LV Ejection Fraction 2D Teich 70.5 % LV Ejection Fraction MOD 2C 61.7 % LV Ejection Fraction 2C AL 61.1 % LA Diameter 3.5 cm LA Width 3.1 cm LA Height 4.2 cm RA Width 3.1 cm RA Height 3.0 cm Aorta at Sinotubular Diameter 2.7 cm M-MODE LV Diastolic Diameter MM 4.5 cm 4.2 - 5.9 / 3.9 - 5.3 cm LV Systolic Diameter MM 2.7 cm LV Ejection Fraction MM Teich 70.1 % IVS Diastolic Thickness MM 1.2 cm 0.6 - 1.0 / 0.6 - 0.9 cm IVS Systolic Thickness MM 1.7 cm LVPW Diastolic Thickness MM 1.0 cm 0.6 - 1.0 / 0.6 - 0.9 cm LVPW Systolic Thickness MM 2.0 cm Aortic Annulus Diameter 2.8 cm LA Ao Ratio MM 1.2 MV E Point Septal Separation 0.8 cm DOPPLER AV Peak Velocity 156.0 cm/s LVOT Peak Velocity 103.0 cm/s AV Area Cont Eq vti 2.2 cm squared AV Area Cont Eq pk 2.1 cm squared MV Area PHT 3.5 cm squared Mitral E to A Ratio 0.7 MV E' Velocity 28.0 cm/s Mitral E to MV E' Ratio 3.7 Mitral E to LV E' Lateral Ratio 3.5 Mitral E to LV E' Septal Ratio 4.0 TR Peak Velocity 201.2 cm/s TR Peak Gradient 16.2 mmHg Right Atrial Pressure 3.0 mmHg Pulmonary Artery Systolic Pressu 19.2 mmHg PV Peak Velocity 84.0 cm/s RV Acceleration Time 0.4 s RV Ejection Time 0.1 s RV AcT/ET 2.8 FINDINGS Left Ventricle Normal left ventricular size and systolic function with no regional wall motion abnormalities. Left ventricular ejection fraction is estimated at 70%. Normal diastolic function. Right Ventricle Normal right ventricular size and systolic function. Right ventricular systolic pressure 29 mmHg. Right Atrium Normal right atrial size. Left Atrium Normal left atrial size. Mitral Valve Mitral valve not well visualized. No mitral valve regurgitation. Aortic Valve Aortic valve not well visualized. No aortic valve stenosis. No aortic valve regurgitation. Tricuspid Valve Structurally normal tricuspid valve. Trace tricuspid valve regurgitation. Pulmonic Valve Pulmonic valve not well visualized. Pericardium No pericardial effusion. Aorta Normal-sized aortic root. Dilated IVC. CONCLUSIONS 1. This is a technically difficult study. Ultrasound enhancing agent Optison was used. 2. Normal left ventricular size and systolic function with no regional wall motion abnormalities. Left ventricular ejection fraction is estimated at 70%. Normal diastolic function. 3. Pulmonary artery pressure estimated at 29 mmHg. 4. No significant valvular abnormality. 5. Recommend repeat studies (for monitoring d/t high risk medication) with ultrasound enhancing agent. Lynette Sanchez MD (Electronically Signed) Final Date: 03 December 2020 16:27 S
[2020-12-03] MEDS: perflutren protein-a microsphr 0.22 mg/mL SDV 3 mL IV (11:59)
== END 2020-12-01 09:18 | disposition home or self-care (01) ==
LOC: RAD 09:18
PROVIDERS: PCP Family Medicine; Visit Provider Internal Medicine Hematology & Oncology
DX: C50.412 Malignant neoplasm of upper-outer quadrant of left female breast (principal); Z79.899 Other long term (current) drug therapy
CPT/HCPCS: 93306; C8929; Q9956

== ENCOUNTER 2020-12-03 08:27 | Outpatient (CLI) | payer OTHER, SELFPAY | END 2020-12-03 08:28 | disposition home or self-care (01) | PROVIDERS: PCP Family Medicine; Visit Provider Internal Medicine Cardiovascular Disease | DX: Z79.899 Other long term (current) drug therapy (principal) | CPT/HCPCS: Q9956 ==

== ENCOUNTER 2020-12-04 07:15 | Day surgery (SDC) | payer OTHER, SELFPAY ==
[2020-12-03 15:20] VITALS: BMI 39.4
[2020-12-04] VITALS (8 sets, daily range): BP systolic 126–167; BP diastolic 71–99; PULSE 74–94; RESP 12–19; TEMP 36.1–37.2; O2SAT 93–97
--- NOTE | 2020-12-04 | SCC_ITS ---
Procedure Done: 1. Right breast lumpectomy. 2. Right axillary sentinel lymph node biopsy. 3. Port-A-Cath placement into the right internal jugular vein using intraoperative ultrasound and fluoroscopy interpretation. 3.7 seconds of fluoroscopic guidance, for a cumulative dose of 0.26 mGy, was provided to Dr. Gong by the radiology department. C-arm images of the chest were saved for the patient's permanent record. JUAN MANUEL
--- NOTE | 2020-12-04 07:46 | NM_ITS ---
WS: [id number] SENTINEL NODE TECHNIQUE: Right breast sentinel node injection CLINICAL INFORMATION: R Breast Lumpectomy COMPARISON: None. PROCEDURE: The procedure including risks, benefits, and complications were discussed; the patient agr eed to proceed. Patient was prepped and draped in usual sterile fashion. Subsequently, 1% lidocaine p reservative-free was administered at the 12:00, 3:00, 6:00, and 9:00 o'clock positions for local anes thesia. Subsequently, 4 aliquots of filtered technetium 99m sulfur colloid was injected into the subc utaneous soft tissues. A total dose of 1.1 mCi was administered. Patient tolerated the procedure well with no immediate complications. MA/MA sentinel node inject [id number] IMPRESSION: Uncomplicated right breast sentinel node injection with a total dose of 1.1 mCi .
[2020-12-04] MEDS: sodium chloride 0.9% 1,000 ML 30 ML IV (09:56)
--- NOTE | 2020-12-04 10:26 | P.HPUD_ITS ---
Surgery/Procedure H&P Update DATE OF PROCEDURE: December 04, 2020 DATE H&P PERFORMED: 11/25/20 H&P UPDATE INFORMATION: No changes to prior documentation PREOP DIAGNOSIS: Right breast cancer. PLANNED PROCEDURE: Operation Date: 12/04/20 12:30 Proposed Procedures p Sentinal Lymph Node Biopsy 60597 C50.211(Right) - Connor Gong MD s Right Breast Lumpectomy 79203 C50.211(Right) - Connor Gong MD s Portacath Placement 61919 C50.211(Not Applicable) - Connor Gong MD
--- NOTE | 2020-12-04 10:26 | W.PM.OPSUD ---
Surgery/Procedure H&P Update DATE OF PROCEDURE: December 04, 2020 DATE H&P PERFORMED: 11/25/20 H&P UPDATE INFORMATION: No changes to prior documentation PREOP DIAGNOSIS: Right breast cancer. PLANNED PROCEDURE: Operation Date: 12/04/20 12:30 Proposed Procedures p Sentinal Lymph Node Biopsy 92264 C50.211(Right) - Connor Gong MD s Right Breast Lumpectomy 21374 C50.211(Right) - Connor Gong MD s Portacath Placement 76407 C50.211(Not Applicable) - Connor Gong MD
--- NOTE | 2020-12-04 10:54 | ANES.PREANE2 ---
Pre-Anesthetic Assessment Pre-Anesthetic Assessment: Height/Weight: Height 1.63 m Weight 104.326 kg Temp Pulse Resp BP Pulse Ox 97.6 F 78 18 145/99 96 12/04/20 07:29 12/04/20 07:29 12/04/20 07:29 12/04/20 07:29 12/04/20 07:29 Preop Diagnosis: Right breast cancer. Proposed Procedure: Operation Date: 12/04/20 12:30 Proposed Procedures p Sentinal Lymph Node Biopsy 52362 C50.211(Right) - Connor Gong MD s Right Breast Lumpectomy 22169 C50.211(Right) - Connor Gong MD s Portacath Placement 35386 C50.211(Not Applicable) - Connor Gong MD Was Beta Clarisa taken within 24 hours: N/A Was Clonidine taken within 24 hours: N/A Last intake: Intake Last Liquid Date 12/03/20 Last Liquid Time 23:00 Last Solid Date 12/03/20 Last Solid Time 18:00 Social: Social History: No alcohol and No tobacco Exam: Pre-Anes Outpt Exam: alert, oriented x 3, clear to auscultation bilaterally and regular rate & rhythm Airway: Submandibular: WNL Cervical ROM: WNL MP: 2 Dentition: Partials Additional comments: Missing several Pulmonary: Pulmonary: Sleep apnea Metabolic: Metabolic: Morbid obesity and Thyroid Anesthetic Plan: ASA status: 3 Anesthesia: Choice Risk of > 500 ml blood loss (7ml/kg in children): No Meds/Allergies Current Medications: Current Medications Generic Name Dose Route Start Last Admin Trade Name Freq PRN Reason Stop Dose Admin Sodium Chloride 1,000 mls @ 30 ml s/hr 12/04/20 07:30 12/04/20 09:56 Sodium Chloride 0.9% IV 12/05/20 07:29 30 mls/hr .Q24H ARCELIA Administration PFSH Anesthesia PFSH: Medical History Cholecystectomy planned Gall bladder disease Surgical History H/O total knee replacement H/O tubal ligation History of lumpectomy Social History Quit status (tobacco): has quit using tobacco Smoking risk assessment/counseling performed?: No Data Anesthesia Cardiac Studies: Echocardiogram 12/01/20
--- NOTE | 2020-12-04 13:01 | SC_ITS ---
WS: [id number] C-arm fluoroscopy of the right upper chest for port placement, 12/04/2020 Clinical Data: port a cath placement Comparison: None. Findings: A right infusion port has been placed. The catheter enters the right internal jugular vein and ends i n the proximal superior vena cava. No pneumothorax is seen. SC/C-arm FL for CVA [id number] Impression: Port-A-Cath placement.
[2020-12-04] MEDS: heparin, porcine 1,000 unit/mL INJ 10 mL 2000 UNIT INJECTION (13:39)
--- NOTE | 2020-12-04 14:42 | P.OP_ITS ---
Operative Report Date of procedure: December 04, 2020 Pre-op Diagnosis: Right breast cancer. Post-op diagnosis: same Procedure Done: 1. Right breast lumpectomy. 2. Right axillary sentinel lymph node biopsy. 3. Port-A-Cath placement into the right internal jugular vein using intraoperative ultrasound and fluoroscopy interpretation. Specimens removed/disposition: 1. Right breast lumpectomy. Long suture anteriorly, short suture medially. 2. Right axillary sentinel lymph node(s). Pathology: As above. Surgeon: Connor Gong Anesthesia: General Estimated blood loss (mL): 10 Complications: None. Disposition: PACU Procedure: The patient was brought to the operating room and was placed in a supine position on the operating room table. The patient had undergone radioactive tracer injection in radiology preoperatively. General endotracheal anesthesia was induced. The shoulders had been extended by means of a posterior shoulder roll. The left arm was tucked up against the body and the right arm was abducted on an armboard. The right axilla, breast and chest were prepped and draped in a sterile fashion. A combination of 1% lidocaine and 0.5% bupivacaine with 1-200,000 parts epinephrine was used for local anesthesia throughout the procedures. Attention was first directed to attempted Port-A-Cath placement into the left subclavian region. The patient was placed in Trendelenburg position and a needle and syringe were used to try to find the left subclavian vein. Despite multiple passes underneath the left clavicle no blood return was ever encountered. It was decided to change the approach to the right internal jugular vein eventually, but attention was first directed to the right breast and axillary procedures. The gamma probe was used to find the hot spot in the axilla. A slightly curvilinear incision was carried out over the hot spot of the axilla at the bottom of the hairbearing area. Cautery and blunt dissection were used to traverse the subcutaneous tissue and the axilla was entered. Using a combination of inspection and the gamma probe, the hot lymph node was found and was completely removed using blunt dissection and cautery. The lymph node was enlarged and may have actually represented a chain of somewhat enlarged lymph nodes. The lymph node(s) registered counts of 390 on the field. Further inspection of the axilla with the gamma probe revealed all counts less than 30. The wound was irrigated with saline. A suture of 3-0 Vicryl was used to bring the deeper tissue together and the skin was approximated using a running subcuticular suture of 4-0 Vicryl. Attention was then directed to the right breast. The patient had a palpable mass at the 3 o'clock position near the breast periphery. A curvilinear incision was carried out over the mass and then cautery and blunt dissection were used to divide the tissue all the way around the mass. Eventually a long suture was placed on the specimen anteriorly and a short suture was placed medially before it was completely removed. An effort was made to get normal- appearing breast tissue all the way around the palpable mass. The wound was irrigated with saline and hemostasis appeared to be good. The skin was reapproximated using a running subcuticular suture of 4-0 Vicryl. Benzoin and Steri-Strips were placed over the wounds. The drapes were then removed and a 1010 drape was placed over the surgical sites on the right side, allowing for some room underneath the right clavicle in preparation for Port-A-Cath placement. The anterior surface of the chest and the right side of the neck were reprepped and draped in a sterile fashion. Intraoperative ultrasound was used to find the right internal jugular vein as evidenced by its size and compressibility. The right internal jugular vein was accessed with a needle and syringe as evidenced by the return of dark nonpulsatile blood. The J-wire was passed down the needle and the needle was removed. The C-arm was positioned and showed the wire extending down the vena cava. A transverse incision was made at a site just inferiorly and somewhat laterally on the upper right chest wall below the clavicular level and an inferior pocket was created in the subcutaneous layer using cautery in preparation for port placement. The Port-A-Cath tubing was passed from the incision through the subcutaneous layer to the exit point of the J-wire at the base on the right side of the neck. The tubing was attached to the port and was cut to an appropriate length. The introducer and sheath were passed over the J- wire, and the introducer and J-wire were removed. The Port-A-Cath tubing was passed down the sheath, which was torn away. The C-arm was positioned and showed good placement of the Port-A-Cath tubing tip in the superior vena cava. The port aspirated easily and flushed well with hep flush solution. The port was sewn in place with some interrupted sutures of 3-0 PDS. The transverse incision was closed at the dermis using a single inverted suture of 3-0 Vicryl and the skin was approximated using a running subcuticular suture of 4-0 Vicryl. The small incision at the base of the neck at the previous insertion site of the J wire was closed using a single inverted suture of 4-0 Vicryl. Benzoin and Steri-Strips were placed over the incisions. Sterile dressings were then applied at all surgical sites. The patient was taken to the recovery area in stable condition postoperatively. INTRAOPERATIVE FLUOROSCOPY FINDINGS: Intraoperative fluoroscopic images of a Port-A-Cath placement were reviewed. An initial image reveals a J-wire entering the right internal jugular vein and extending down the vena cava. Subsequent images reveal a Port-A-Cath on that side of the chest with its tubing tip in good location in the superior vena cava. No obvious pneumothorax is identified.
--- NOTE | 2020-12-04 14:53 | P.PCN_ITS ---
PACU note PACU note: VSS, Good respiratory effort, report to SIGNAL AND COMMUNICATIONS MAINTAINER Post-Anesthesia Exam: awake
--- NOTE | 2020-12-04 14:53 | PM.PACU ---
PACU note PACU note: VSS, Good respiratory effort, report to SENIOR CLINICIAN Post-Anesthesia Exam: awake
--- NOTE | 2020-12-04 14:59 | XR_ITS ---
WS: [id number] XR chest 1V portable [id number] REASON FOR EXAM: POST PORT PLACEMENT FINDINGS: Chemotherapy infusion port right chest with catheter through the right internal jugular vein. Tip at the atrial level. Elevation of the right hemidiaphragm. No right pneumothorax. Linear densities in the left lung base compatible with atelectasis. XR/XR chest 1V portable [id number] IMPRESSION: Port placement as above.
--- NOTE | 2020-12-04 15:20 | ANE.PACU2 ---
Inpatient post-anesthesia follow up: Airway intact: Yes Vital signs: Temperature 97.6 F Pulse Rate 78 Respiratory Rate 18 Blood Pressure 150/71 Pulse Oximetry 93 Oxygen Delivery Me thod Room Air Oxygen Flow Rate 8 Fraction of Inspir ed Oxygen Hydration adequate: Yes Nausea and vomiting: No Pain level: 2 Mental status: Baseline
--- NOTE | 2020-12-04 15:29 | SUR.PHASEI ---
1519 PT AWAKE ALERT WITH GOOD RESP EFFORT, X RAY JUST NOW DONE , DR HERNANDEZ AT BEDSIDE, X RAY OK, PT REQUESTS COKE TO SIP ON PT RT CHEST DRESSING X 2 AND RT AXILLARY DRESSING D/I ALL WITH PAPER TAPE, PT ON RA, TO OPS AND HANDOFF AT BEDSIDE,
[2020-12-04] MEDS: ibuprofen 800 mg tablet PO (16:05)
== END 2020-12-04 16:11 | disposition home or self-care (01) ==
PROVIDERS: PCP Family Medicine; Visit Provider Surgery
PROC: (CPT 19301; principal; 2020-12-04 12:30)
PROC: (CPT 19301; 2020-12-04 12:30)
PROC: (CPT 19301; 2020-12-04 12:30)
DX: C50.211 Malignant neoplasm of upper-inner quadrant of right female breast (principal); G47.30 Sleep apnea, unspecified; E66.01 Morbid (severe) obesity due to excess calories; Z68.39 Body mass index [BMI] 39.0-39.9, adult; Z87.891 Personal history of nicotine dependence
CPT/HCPCS: 19301; 36561; 38525; 12345; 38792; 71045; 76000; 77001; 88305; 96365; A9541; C1788; J0330; J0690; J1644; J2405; J2704; J2710; J3010; J3490; J7030

== ENCOUNTER 2021-01-05 11:52 | Outpatient (CLI) | payer OTHER, SELFPAY ==
[2021-01-05 13:12] LABS: Basophils # 0.1 10^3/uL (0.0-0.1); Basophils % 1.3 %; Eosinophils # 0.4 10^3/uL (0.0-0.8); Eosinophils % 6.7 %; Hematocrit 43.1 % (37.0-47.0); Hemoglobin 14.3 g/dL (11.5-15.3); Lymphocytes # 1.6 10^3/uL (0.8-4.8); Lymphocytes % 26.6 %; Mean Corpuscular HGB Conc 33.2 g/dL (30.0-36.0); Mean Corpuscular Hemoglobin 31.2 pg (28.0-34.0); Mean Corpuscular Volume 93.9 fL (81-99); Mean Platelet Volume 9.7 fL (7.4-10.4); Monocytes # 0.3 10^3/uL (0.2-0.9); Monocytes % 5.6 %; Neutrophils # 3.54 10^3/uL (1.8-7.7); Neutrophils % 59.6 %; Nucleated Red Blood Cells % 0 %; Platelet Count 375 10^3/cmm (130-400); Red Blood Count 4.59 10^6/uL (4.1-5.3); Red Cell Distribution Width 13.2 % (12.1-15.1); White Blood Count 5.9 10^3/uL (4.0-10.0)
[2021-01-05 13:39] LABS: Alanine Aminotransferase 24 U/L (0-33); Albumin Level 4.3 g/dL (3.5-5.2); Alkaline Phosphatase 144 IU/L (35-105); Anion Gap 14.4 (5-19); Aspartate Amino Transferase 19 U/L (0-32); Blood Urea Nitrogen 7 mg/dL (8-23); Calcium 9.4 mg/dL (8.5-10.5); Carbon Dioxide 26 mmol/L (22-29); Chloride 102 mmol/L (98-107); Globulin 2.8 g/dL (1.3-4.6); Glucose 91 mg/dL (65-115); Osmolality Calculated 284 mOsm/kg (285-295); Potassium 4.4 mmol/L (3.5-5.1); Sodium 138 mmol/L (136-145); Total Bilirubin 0.4 mg/dL (0.15-1.2); Total Protein 7.1 g/dL (6.6-8.7)
--- NOTE | 2021-01-05 17:39 | ONC FU_ITS ---
Dr. Roberts follow up note Patient: Gisel Shipley Unit #: [id number]: 1955 Dicatated By: Roosevelt Roberts M.D.Date of Visit:Jan 05, 2021 Onc Med Follow-up/Prog Note History of Present Illness: Mrs. Gisel Shipley, is a 65-year-old female with history of right breast lumpectomy at age 18, as per patient since then she has been examining breast and recently noted mass in her left breast for which she underwent mammogram on 09/21/2019 which showed left breast is composed of heterogeneous fibroglandular density tissue, asymmetric breast tissue left greater than right upper outer quadrant unchanged. No definite mammographic abnormalities deep to the palpable marker. Subsequently patient underwent ultrasound of left breast at 12- 2:00 position. Hypoechoic shadowing lesion at 2:00 position 4 cm from the nipple is suspicious for neoplasm and it measures 1.3 x 0.9 x 1.4 cm. Patient underwent ultrasound-guided left breast biopsy on 10/17/2019 which showed invasive mammary carcinoma with focal lobular feature, grade 2, tumor involves all 5 cores., Prognostic profiling shows ER/NM strongly positive, HER-2/tony 2+, but negative for HER-2/tony overexpression by IHC and over amplification by FISH. Ki-67 was 36% which is high e.g. unfavorable.Underwent left breast lumpectomy with sentinel lymph node biopsy on 12/06/2019 final pathology report showed 2.5 cm invasive lobular carcinoma with clear surgical margins , T2 and 3 sentinel lymph node were examined showed no evidence of metastatic disease N0 Started on Arimidex 1 mg by mouth daily along with vitamin D and calcium supplement on 01/17/2020, Oncotype DX score checked on 01/20/2020 showed recurrence score 14 e.g. low, risk of distant recurrence is about 4% with aromatase inhibitor and average absolute chemotherapy benefit less than 1%. Status post postlumpectomy radiation therapy to the left breast from February 25, 2020 till March 24, 2020 No family history of breast cancer No history of hormonal supplement. 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 pT2, pN0,, grade 3, ER/NM weakly positive, HER-2/tony positive stage Ib, Came for follow-up, denies any specific complaints, no fever chills, no nausea or vomiting, no diarrhea constipation patient recently underwent right breast lumpectomy with sentinel lymph node biopsy for newly diagnosed right HER-2/tony positive breast cancer, patient tolerated procedure well. Medications: Anastrozole 1 Tablet (of 1 mg) Oral daily, Aspirin Adult 1 Tablet (of 325 mg) Oral daily, Calcium + D 2 Tablet (of 600 mg) Oral daily, Doxepin HCl 1 Capsule (of 100 mg) Capsule Oral at bedtime, Levothyroxine Sodium 1 Tablet (of 100 mcg) Oral daily, Probiotic 1 Capsule Oral daily Allergies: Aleve Review of Systems: Review of Systems is not available for this patient. Vital Signs: Performed on Jan 05, 2021 13:35 Height - 64.00 in Weight - 244.2 lbs (HIGH) BSA - 2.13 sq.m BMI - 41.92 (HIGH) Temperature - 97.4 F (LOW) Pulse - 73 /min Respiration - 18 /min BP - 140/83 mm(hg) O2 Sat - 97 % Pain - 0 Fatigue - 7 Performance Status: 0 - Fully active, able to carry on all predisease activities without restrictions. (ECOG) Physical Examination: Respiratory - Lungs are clear to auscultation, Cardiovascular - Regular rate and rhythm of heart, Gastrointestinal - Soft, bowel sounds present, Extremities - No visible edema. Lab/Imaging: Most recent lab results are not available for this patient. Impression: Newly diagnosis metaplastic carcinoma with chondroid, sarcomatoid, osteoid differentiation per ultrasound-guided biopsy of right breast done on October 27, 2020 Subsequently underwent lumpectomy with right axillary sentinel lymph node biopsy on December 04, 2020 which showed 2.4 cm, grade 3, metaplastic carcinoma with clear surgical margins, 0 out of 5 sentinel lymph nodes showed metastatic disease., T2, N0, grade 3, ER/NM weakly positive, HER-2/tony positive, stage Ib ER/NM weakly positive at 60% / 55% HER-2/tony positive IHC 3+, and HER-2/tony overexpression and gene over amplification 2. Invasive mammary carcinoma with focal lobular features, grade 2 per ultrasound-guided left breast biopsy done on 10/17/2019 status post lumpectomy Done on 12/06/2019 showed 2.5 cm invasive lobular carcinoma with clear surgical margins T2, 3 sentinel lymph nodes were examined showed no evidence of metastatic disease N0 stage IIa ER 91% positive, NM 89% positive, HER-2/tony negative. Oncotype DX score was 14, low risk, risk of distant recurrence is about 4% with aromatase inhibitor and no significant benefit from chemotherapy Started on Arimidex 1 mg p.o. daily for 5 years along with vitamin D and calcium supplement on March 18, 2020 status post postlumpectomy radiation therapy started on February 25, 2020 and completed on March 24, 2020 Arimidex discontinued on January 05, 2021, as patient was advised to start systemic chemotherapy for newly diagnosed HER-2/tony positive right breast cancer with weakly ER/NM positive disease Ultrasound left breast done on 09/21/2019 showed 1.3 x 0.9 x 1.4 cm mass at 2:00 position left breast. Plan: Discussed with patient regarding her labs white blood count 5.9 hemoglobin 14.3 hematocrit 43.1 platelets 375,000 and on final pathology report of right breast lumpectomy Clinically, patient doing well, with no new signs symptom, tolerated right breast lumpectomy with sentinel lymph node excision well and final pathology report showed T2, N0, grade 3, HER-2/tony positive, ER/NM weakly positive disease, treatment options including systemic chemotherapy along with Herceptin was discussed chemo regimens including Adriamycin/Cytoxan followed by Taxol plus Herceptin or Cytoxan/Taxotere/Herceptin or carboplatin/Taxotere/Herceptin were discussed, patient is a high risk based on grade 3 disease and tumor size more than 2 cm and ER/NM being weakly positive, moreover she developed cancer in her right breast while on Arimidex. Patient has history of radiation therapy done to her left breast, there is a concern regarding risk of cardiomyopathy with chemotherapy treatment related cardiotoxicity so we would not consider Adriamycin based chemotherapy regimen rather carboplatin/Taxotere along with Herceptin x6 followed by Herceptin for total 52 weeks along with hormonal therapy with Femara for 5 years and will refer her to radiation oncology for postlumpectomy radiation therapy. All the side effect possible benefits associated with systemic chemotherapy with carboplatin AUC 6 and Taxotere 75 mg/m??? every 3 weeks x 6 along with Herceptin including but not limited to bone marrow suppression, thrombocytopenia, neuropathy, cardiac toxicity especially with Herceptin, nausea vomiting, hair loss were mentioned further teaching will done by chemotherapy nurse and will obtain approval from her insurance prior to the treatment, patient already has port placement., Discussed with patient and her and all the questions were answered to their satisfaction, patient accepted the treatment. And she will return to clinic 1 week after the treatment is initiated with CBC and CMP Signed By: Roosevelt Roberts M.D. <<Signature on File>>
== END 2021-01-05 11:53 | disposition home or self-care (01) ==
PROVIDERS: PCP Family Medicine; Visit Provider Internal Medicine Hematology & Oncology
DX: C50.811 Malignant neoplasm of overlapping sites of right female breast (principal); C50.812 Malignant neoplasm of overlapping sites of left female breast; Z17.0 Estrogen receptor positive status [ER+]; Z90.11 Acquired absence of right breast and nipple; E55.9 Vitamin D deficiency, unspecified; E83.51 Hypocalcemia; Z79.899 Other long term (current) drug therapy; Z79.811 Long term (current) use of aromatase inhibitors; Z92.21 Personal history of antineoplastic chemotherapy
CPT/HCPCS: 80053; 85025; 99215

== ENCOUNTER 2021-01-12 06:01 | Outpatient (CLI) | payer OTHER, SELFPAY ==
[2021-01-12 08:39] LABS: Basophils % 0.2 %; Eosinophils # 0.1 10^3/uL (0.0-0.8); Eosinophils % 0.4 %; Hemoglobin 13.7 g/dL (11.5-15.3); Lymphocytes # 0.9 10^3/uL (0.8-4.8); Lymphocytes % 5.8 %; Mean Corpuscular HGB Conc 32.6 g/dL (30.0-36.0); Mean Corpuscular Hemoglobin 30.9 pg (28.0-34.0); Mean Corpuscular Volume 94.8 fL (81-99); Mean Platelet Volume 9.8 fL (7.4-10.4); Monocytes # 0.5 10^3/uL (0.2-0.9); Neutrophils # 14.11 10^3/uL (1.8-7.7); Neutrophils % 89.6 %; Nucleated Red Blood Cells % 0 %; Platelet Count 378 10^3/cmm (130-400); Red Blood Count 4.43 10^6/uL (4.1-5.3); Red Cell Distribution Width 13.2 % (12.1-15.1); White Blood Count 15.8 10^3/uL (4.0-10.0)
[2021-01-12 09:09] LABS: Alanine Aminotransferase 22 U/L (0-33); Albumin Level 4.2 g/dL (3.5-5.2); Alkaline Phosphatase 143 IU/L (35-105); Anion Gap 18.2 (5-19); Aspartate Amino Transferase 15 U/L (0-32); Blood Urea Nitrogen 12 mg/dL (8-23); Calcium 9.2 mg/dL (8.5-10.5); Carbon Dioxide 22 mmol/L (22-29); Chloride 103 mmol/L (98-107); Globulin 2.7 g/dL (1.3-4.6); Glomerular Filtration Rate 84.5 mL/min (90-130); Glucose 140 mg/dL (65-115); Osmolality Calculated 290 mOsm/kg (285-295); Potassium 4.2 mmol/L (3.5-5.1); Sodium 139 mmol/L (136-145); Total Bilirubin 0.3 mg/dL (0.15-1.2); Total Protein 6.9 g/dL (6.6-8.7)
[2021-01-12] MEDS: acetaminophen 325 mg Tablet 650 MG PO (10:15)
[2021-01-12] MEDS: famotidine 20 mg/2 mL INJ IVP (10:15)
[2021-01-12] MEDS: palonosetron 0.25 mg/5 mL SDV IV (10:17)
[2021-01-12] MEDS: diphenhydrAMINE 50 mg/mL SDV 1mL 25 MG IV (10:36)
[2021-01-12] MEDS: sodium chloride 0.9% (100 ml) 100 ML 500 ML (10:36)
[2021-01-12] MEDS: fosaprepitant 150 MG in sodium chloride 0.9% 150 ML 300 MG IV (10:53)
--- NOTE | 2021-01-19 21:59 | ONC FU_ITS ---
Alex Rodríguez Patient Note Patient: Gisel Shipley Unit #: [id number]: 1955 Dictated By: Tanisha MasonDate of Visit: Jan 12, 2021 Onc MED Follow-Up/Prog Note Chief Complaint: LEFT breast cancer-September 2019 RIGHT breast cancer-November 2020 History of Present Illness: Mrs. Shipley is a 65-year-old female with a history of right breast lumpectomy at age 18. She reports that since that lumpectomy at age 18 she has done self breast exams and follow-up mammography when age-appropriate. She states recently she noticed a mass in her LEFT breast and underwent mammography on September 21, 2019. The mammography did show the left breast is composed of heterogenous fibroglandular density tissue, asymmetric breast tissue left greater than right, upper outer quadrant was unchanged. There were no definite mammographaphic abnormalities identified at the palpable marker. Subsequently she underwent ultrasound of the left breast at the 1:48 PM position. A hypoechoic shadowing lesion at 2 PM position 4 cm from the nipple was suspicious for neoplasm. It measured 1.3 x 0.9 x 1.4 cm. Mrs. Shipley then underwent ultrasound of the guided left breast biopsy on October 17, 2019. This did show invasive mammary carcinoma with focal lobular features, grade 2, tumor involves all 5 cores taken. Prognostic profiling showed ER/MI strongly positive, HER-2/tony plus but negative for HER-2/tony overexpression by IHC and over amplification by FISH. Ki-67 was 36% which is high and unfavorable. She underwent left breast lumpectomy with sentinel lymph node biopsy on December 06, [address] Gong. The final pathology report showed a 2.5 cm invasive lobular carcinoma with clear surgical margins, T2 and 3 sentinel lymph nodes were examined which showed no evidence of metastatic disease???N0. Mrs. Shipley was started on Arimidex 1 mg daily with vitamin D and calcium supplementation on January 17, 2020. Her Oncotype DX score from January 20, 2020 show recurrence score 14???low; risk of distant recurrence with aromatase inhibitor was about 4% and average absolute chemotherapy benefit was less than 1%. She did undergo postlumpectomy radiation therapy to the LEFT breast from February 25, 2020 to March 24, 2020. She received a total dose of 42.56 José in 16 fractions followed by lumpectomy cavity boost of 10 José in 4 fractions. She has no family history of breast cancer and no history of hormonal supplementation. Mrs. Shipley underwent follow-up mammography/ultrasound on October 02, 2020. It did report a 1.7 x 1.2 x 0.9 cm mass in the RIGHT breast at the 3 o'clock position. On October 27, 2020 she underwent ultrasound-guided right breast biopsy. 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 HER-2/tony positive IHC 3+ positive for HER-2/tony overexpression. She underwent RIGHT breast lumpectomy with sentinel lymph node dissection on December 04, 2020. 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 pT2, pN0, grade 3, ER/MI weakly positive, HER-2/tony positive???stage Ib per Dr. Roberts's office note on January 05, 2021. Dr. Roberts has discussed with Mrs. Shipley treatment options for her grade 3 HER-2/tony positive ER MI positive RIGHT breast cancer to include systemic chemotherapy with Herceptin along with chemotherapy agents including Adriamycin Cytoxan followed by Taxol plus Herceptin, Cytoxan/Taxotere and Herceptin or carboplatin Taxotere Herceptin. She is high risk for recurrence based on the grade 3 disease and the tumor size of more than 2 cm. Her ER/MI is weakly positive. She did develop the RIGHT breast cancer while on Arimidex for treatment of her LEFT breast cancer. She has a history of radiation to the LEFT breast so there is concern of risk of cardiomyopathy with chemo treatment related cardiotoxicity. Adriamycin will not be considered at this time. She has been advised to pursue treatment with carboplatin Taxotere along with Herceptin for 6 treatments followed by Herceptin for a total of 52 weeks along with hormonal therapy for 5 years. She will also be referred to radiation oncology for postlumpectomy radiation therapy. Mrs. Shipley is here today to begin her first cycle of carboplatin with AUC of 6 and Taxotere 75 mg per metered squared every 3 weeks along with Herceptin for total of 6 cycles but then continue Herceptin for a total of a year. She did have baseline echocardiogram on 12/01/2020 which reported her left ventricular ejection fraction estimated at 70%. We will plan for echocardiogram limited views for LVEF monitoring every 3 months while she is on Herceptin. Mrs. Shipley is here today for follow-up and initiation of her first cycle of carboplatin Taxotere and trastuzumab. She has no concerns today. She states overall she is doing well. She is had no fever or chills. She denies any signs or symptoms of infection. She denies any mouth sores, sore throat or difficulty swallowing. Breath orthopnea. She denies chest pain or palpitations. She states her right breast lumpectomy site has healed well. She also had a port placed by Dr. Gong on December 04, 2020 and this site is healed well also. She denies any pain. She denies any diarrhea or constipation. She denies any worsening of her symptoms. She HAS had no lower extremity edema. Her ECOG is 0. Past Medical History: Arthritis Depression Hypercholesterolemia Hypothyroidism Past Surgical History: Bilateral knee replacement Breast biopsy Cholecystectomy Hernia repair Right breast lumpectomy Thyroid ablation Tubal ligation Right internal jugular vein Port-A-Cath placement by Dr. Gong in 2020 Colonoscopy in 2009 Allergies: Aleve Medications: Anastrozole 1 Tablet (of 1 mg) Oral daily Aspirin Adult 1 Tablet (of 325 mg) Oral daily Calcium + D 2 Tablet (of 600 mg) Oral daily Doxepin HCl 1 Capsule (of 100 mg) Capsule Oral at bedtime Levothyroxine Sodium 1 Tablet (of 100 mcg) Oral daily Probiotic 1 Capsule Oral daily Family History: Ms. Shipley's mother at age 77: Alzheimer's disease. Ms. Shipley's father is alive. Social History: Ms. Shipley is and she is retired. Ms. Shipley quit smoking 9 years ago but had smoked for 15 years. She drinks occasionally. She consumes 1 drink/day 1 day/week. Ms. Shipley reports the following support systems: lives with spouse, significant other, family, or friends, lives in own house, supportive family/friends willing to assist with needs, and adequate transportation available for expected visits. Her diet consists of regular meals. She indicates her activity level as: regular exercise. Review Of Symptoms: see above Vital Signs: Performed on Jan 12, 2021 09:05 Height - 64.00 in Weight - 243 lbs (LOW) BSA - 2.12 sq.m BMI - 41.71 (HIGH) Temperature - 97.6 F (LOW) Pulse - 62 /min Respiration - 18 /min BP - 122/77 mm(hg) O2 Sat - 94 % (LOW) Pain - 0 Fatigue - 7,0 - Fully active, able to carry on all predisease activities without restrictions. (ECOG) Physical Examination: Constitutional Alert, oriented, no acute distress. Skin pink, warm and dry. Head Normocephalic; atraumatic. Eyes Conjunctivae and sclerae are clear and without icterus. Pupils are reactive and equal. Neck Supple without masses or thyromegaly. No jugular venous distension. Hematologic/Lymphatic No petechiae or purpura. No tender or palpable lymph nodes in the cervical or supraclavicular areas. Respiratory Lungs are clear to auscultation without rhonchi or wheezing. Cardiovascular Regular rate and rhythm of heart without murmurs,clicks, gallops or rubs. Chest Right upper chest wall venous access device placement site is unremarkable. It has healed well. Abdomen Non-tender, non-distended, no masses or ascites. Good bowel sounds noted in all quads. No guarding or rebound tenderness. No pulsatile masses. Back/Spine Non-tender to palpation. Extremities No visible deformities, no cyanosis, clubbing or edema. Musculoskeletal No tenderness or swelling, normal range of motion without obvious weakness. Integumentary No rashes or lesions. Neurologic No sensory or motor deficits, normal cerebellar function, normal gait. Psychiatric Alert and oriented times three. Coherent speech. Verbalizes understanding of our discussions today. Laboratory:Test performed on Jan 12, 2021 08:25 Sodium 139 mmol/L Potassium 4.2 mmol/L Chloride 103 mmol/L CO2 22 mmol/L Anion Gap 18.2 BUN 12 mg/dL Creatinine 0.7 mg/dL Cr Clearance (Est) 143.8500 mL/min eGFR 84.5 mL/min Glucose 140 mg/dL Osmolality - Calculated 290 mOsm/kg Calcium 9.2 mg/dL Protein, Total 6.9 g/dL Albumin 4.2 g/dL Globulin 2.7 g/dL Bilirubin, Total 0.3 mg/dL ALT (SGPT) 22 U/L AST (SGOT) 15 U/L Alkaline Phosphatase 143 IU/L WBC 15.8 10 3/uL RBC 4.43 10 6/uL HGB 13.7 g/dL HCT 42.0 % MCV 94.8 fL MCH 30.9 pg MCHC 32.6 g/dL RDW 13.2 % Platelet Count 378 10 3/cmm MPV 9.8 fL Neutrophils 14.11 10 3/uL Lymphocytes 0.9 10 3/uL Monocytes 0.5 10 3/uL Eosinophils 0.1 10 3/uL Basophils 0.0 10 3/uL Neutrophil % 89.6 % Lymphocyte % 5.8 % Monocyte % 3.0 % Eosinophil % 0.4 % Basophils % 0.2 % NRBC % 0 % Impression: Newly diagnosis metaplastic carcinoma with chondroid, sarcomatoid, osteoid differentiation per ultrasound-guided biopsy of right breast done on October 27, 2020 Subsequently underwent lumpectomy with right axillary sentinel lymph node biopsy on December 04, 2020 which showed 2.4 cm, grade 3, metaplastic carcinoma with clear surgical margins, 0 out of 5 sentinel lymph nodes showed metastatic disease., T2, N0, grade 3, ER/MI weakly positive, HER-2/tony positive, stage Ib ER/MI weakly positive at 60% / 55% HER-2/tony positive IHC 3+, and HER-2/tony overexpression and gene over amplification 2. Invasive mammary carcinoma with focal lobular features, grade 2 per ultrasound-guided left breast biopsy done on 10/17/2019 status post lumpectomy Done on 12/06/2019 showed 2.5 cm invasive lobular carcinoma with clear surgical margins T2, 3 sentinel lymph nodes were examined showed no evidence of metastatic disease N0 stage IIa ER 91% positive, MI 89% positive, HER-2/tony negative. Oncotype DX score was 14, low risk, risk of distant recurrence is about 4% with aromatase inhibitor and no significant benefit from chemotherapy Started on Arimidex 1 mg p.o. daily for 5 years along with vitamin D and calcium supplement on March 18, 2020 status post postlumpectomy radiation therapy started on February 25, 2020 and completed on March 24, 2020 Arimidex discontinued on January 05, 2021, as patient was advised to start systemic chemotherapy for newly diagnosed HER-2/tony positive right breast cancer with weakly ER/MI positive disease Ultrasound left breast done on 09/21/2019 showed 1.3 x 0.9 x 1.4 cm mass at 2:00 position left breast. Plan: PROBLEMS ADDRESSED TODAY 1. 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 A. Mrs. Shipley has been offered adjuvant chemotherapy with carboplatin Taxotere and Herceptin every 3 weeks. The Herceptin will be for total of a year. (Adriamycin/Cytoxan was not considered as she has had radiation to the left breast and concerns for increased risk for potential cardiotoxicity). After completion of 6 cycles of the carboplatin Taxotere she will be referred to radiation oncology for postlumpectomy radiation. She also plan to resume aromatase inhibitor therapy. She will need that for a minimum of 5 years however she did have development of a right breast cancer while on aromatase inhibitor for the left breast cancer diagnosed in September 2019. B. We will recommend aggressive antiemetics due to her regimen. She will have Compazine and Ativan as needed for antiemetics at home. We may add Zofran if needed. C. She has had baseline echocardiogram further Herceptin which reported LVEF of 70% on December 01, 2020. She underwent placement of a right internal jugular vein Port-A-Cath December 04, [address] Gong. [place]. Today's labs reviewed in detail discussed with Mrs. Shipley and a copy was given to her. WBC 15.8, hemoglobin 13.7, platelets 378,000 ANC is 14,000. Potassium 4.2 creatinine 0.7 LFTs are normal. 2. Follow-up plan A. Mrs. Shipley will return in 1 week with CBC CMP for day 8 follow-up after starting her first cycle of chemotherapy. B. She will have weekly interim CBC CMP for chemotherapy monitoring. C. She will be due back in 3 weeks with CBC CMP D. She will require weekly port maintenance with lab draws or other access to her port. D. Her current plan is for 6 cycles of carboplatin Taxotere and Herceptin. Herceptin will then continue for total of 52 weeks from her start date. E. Her last echocardiogram for LVEF monitoring was December 01, 2020 and her LVEF was reported at an estimated 70% at that time. F. Mrs. Shipley was instructed to contact us in the interim should questions or problems arise. 3. Patient chemotherapy treatment plan education A. The patient was informed of chemotherapy plan and specific drugs were discussed. We also discussed how chemotherapy works and identified common side effects including alopecia; myelosuppression-including neutropenia, anemia, thrombocytopenia; peripheral neuropathy; fatigue; nausea; diarrhea; constipation; bleeding or bruising; skin changes; mouth sores; drug hypersensitivity/allergic reactions or anaphylaxis and extravasation. They have also been informed how to contact the clinic with side effects or symptoms, including but not limited to fever greater than 100.4???, chills, sore throat, bleeding or bruising that is not explained or mouth sores, cough, nasal discharge, diarrhea, constipation, nausea and/or vomiting not relieved with medications on hand at home, as well as any other concern or question they may have. Our hours are 8:00 a.m. to 4:30 p.m. on Tuesday through and 8-12:00 on Tuesday. However, someone is religion department chair 24 hours per day and they have been advised to contact the [facility] [place] at if it is after hours. We have also discussed potential long-term side effects of chemotherapy including secondary cancers, infertility, pulmonary complications, cardiac complications, and again peripheral neuropathy. We have discussed that they certainly need to let us know before taking any antioxidants or herbal or further dietary supplements, as we are unsure of how these agents react with chemotherapy and we request that they avoid these products for now. They were informed that it is okay to take multivitamins at normal doses. They verbally state that they understand to take all medications as directed by their healthcare provider unless otherwise indicated. They also verbalized understanding to leave the pressure dressing on the intravenous administration site for at least two hours after treatment. Instructions for oral care with baking soda and salt water rinses as well as a guide for use of [id number] medication were provided with the treatment plan. They have been given a written patient treatment plan, of which a copy is in the chart, as well as specific drug information. They have no questions and verbalized understanding and are willing to proceed with chemotherapy at this time. Total time spent with this patient's care today including review of records prior to visit, discussion of chemotherapy treatment plan as well as side effect identification and management, answering questions and post visit documentation was 60 minutes. Signed By: Tanisha Mason, AOCNP Roosevelt Roberts MD <<Signature on File>>
== END 2021-01-12 06:02 | disposition home or self-care (01) ==
LOC: ONCMED 06:04
PROVIDERS: PCP Family Medicine; Visit Provider Nurse Practitioner
DX: Z51.11 Encounter for antineoplastic chemotherapy (principal); C50.812 Malignant neoplasm of overlapping sites of left female breast; Z17.0 Estrogen receptor positive status [ER+]; F32.9 Major depressive disorder, single episode, unspecified; E78.00 Pure hypercholesterolemia, unspecified; E03.9 Hypothyroidism, unspecified; Z79.811 Long term (current) use of aromatase inhibitors
CPT/HCPCS: 80053; 85025; 96367; 96375; 96413; 96415; 96417; 99215; J1100; J1200; J1453; J2469; J3490; J7040; J7050; J9045; J9171; Q5112

== ENCOUNTER 2021-01-18 09:02 | Emergency (ER) | payer OTHER, SELFPAY ==
[2021-01-18 09:23] VITALS: BP 159/92; PULSE 97; RESP 20; TEMP 36.5; O2SAT 96; BMI 40.3
--- NOTE | 2021-01-18 09:36 | ED_ITS ---
HPI - Weakness General: Chief complaint: Weakness Stated complaint: not feeling well after chemo, multiple complaints Time Seen by Provider: 01/18/21 09:29 Source: patient Mode of arrival: ambulatory Limitations: no limitations History of Present Illness: HPI Narrative: 65-year-old female comes in today for feeling of malaise. Patient recently started chemotherapy with her first round on Tuesday. Since then she has had just generalized weakness and not feeling well. Patient reports multiple episodes of diarrhea but no vomiting. Patient reports poor oral intake. Patient appears mildly unwell. Patient appears no acute distress. MD Complaint: generalized weakness Onset (ago): day(s) Duration: constant Location: generalized Severity: mild Review of Systems General: Reports: 10 or more systems reviewed and unremarkable except in HPI and below Neuro: Reports: weakness in extremities PFSH ED PFSH: Medical History (Updated 01/18/21 @ 12:51 by MICHAEL Lozoya) Cholecystectomy planned Gall bladder disease Surgical History H/O total knee replacement H/O tubal ligation History of lumpectomy Social History Quit status (tobacco): has quit using tobacco Smoking risk assessment/counseling performed?: No Physical Exam Const: COMMON NORMALS: no acute distress and patient oriented x3 GENERAL APPEARANCE: cooperative HENMT: COMMON NORMALS: normocephalic and Normal external nose present HEAD & SCALP: normal to inspection and normocephalic NOSE: Normal external nose present MOUTH: Normal oral and palatal mucosa present Eye: GENERAL EYE: appearance normal, both eyes and all related structures Neck/C-Spine: COMMON NORMALS: full ROM Lymph: LYMPHATIC: no lymphadenopathy noted Chest: COMMONS NORMALS: normal inspection of the chest Resp: COMMON NORMALS: normal respiratory effort EFFORT & INSPECTION: Yes able to speak in complete sentences Cardio: COMMON NORMALS: regular rate and regular rhythm RATE: regular rate RHYTHM: regular rhythm GI: COMMON NORMALS: non-tender Back/Pelvis: COMMON NORMALS: thoracic and lumbar spine normal to inspection Extremity: COMMON NORMALS: normal to inspection Neuro: COMMON NORMALS: patient oriented x3 and moves all extremities Psych: COMMON NORMALS: mental status grossly normal and cooperative Skin: COMMON NORMALS: no rashes or lesions noted GENERAL SKIN EXAM: no rashes or lesions noted Course ED course: 1130, talk to Dr. Roberts regarding patient's abnormal laboratory values. He was not concerned with a low white count but recommend that patient be evaluated and treated for probable colitis due to her diarrhea stools and to evaluate the urine when is complete. He recommended Cipro and Flagyl to treat. 1245, patient is feeling much better after 1-1/2 L of IV fluids. Patient is also been treated with Cipro and Flagyl IV. Patient had blood cultures drawn. Since patient is feeling a lot better we will go ahead and discharged home with oral medications for probable enteritis. Urinalysis was clear. Vital Signs: Vital signs: Vital Signs Temperature 97.7 F 01/18/21 09:23 Pulse Rate 77 01/18/21 13:04 Respiratory Rate 14 01/18/21 13:04 Blood Pressure 132/71 01/18/21 13:04 Pulse Oximetry 97 01/18/21 13:04 MDM - Weakness MDM Narrative: Medical decision making narrative: Patient came in with 5 days of malaise and diarrhea status post chemotherapy on Tuesday. On exam abdomen soft nontender. Skin was warm and dry. Vital signs were normal. Oral mucosa was dry. Differential diagnosis includes enteritis, urinary tract infection, dehydration. Laboratory values noted leukopenia 0.6, sodium of 134, blood glucose 132. Urinalysis was clear. Reviewed exam with Dr. Roberts who recommended treating patient for enteritis due to the diarrhea. Recommended Cipro and Flagyl to cover for infection. Blood cultures were completed. Patient was hydrated with 1-1/2 L of IV fluids and given Cipro and Flagyl with good results. Patient reported improved symptoms. Patient was released to home with Cipro and Flagyl p.o. Patient reported understanding of care plan and need for follow-up or return. Lab Data: Labs: Lab Results 01/18/21 01/18/21 01/18/21 Range/Units 09:45 09:45 10:44 WBC 0.6 L* (4.0-10.0) 10^3/ uL RBC 4.79 (4.1-5.3) 10^6/u L Hgb 14.9 (11.5-15.3) g/dL Hct 43.7 (37.0-47.0) % MCV 91.2 (81-99) fL MCH 31.1 (28.0-34.0) pg MCHC 34.1 (30.0-36.0) g/dL RDW 12.5 (12.1-15.1) % Plt Count 226 (130-400) 10^3/c mm MPV 10.4 (7.4-10.4) fL Neut % (Auto) 18.8 % Lymph % (Auto) 64.1 % [place] % (Auto) 3.1 % Eos % (Auto) 7.8 % Baso % (Auto) 3.1 % Neut # (Auto) 0.12 L* (1.8-7.7) 10^3/u L Lymph # (Auto) 0.4 L (0.8-4.8) 10^3/u L [place] # (Auto) 0.0 L (0.2-0.9) 10^3/u L Eos # (Auto) 0.1 (0.0-0.8) 10^3/u L Baso # (Auto) 0.0 (0.0-0.1) 10^3/u L Nucleated RBC % (a uto) 0 % Nucleated RBCs # 0.0 /100WBC Sodium 134 L (136-145) mmol/L Potassium 3.8 (3.5-5.1) mmol/L Chloride 98 (98-107) mmol/L Carbon Dioxide 25 (22-29) mmol/L Anion Gap 14.8 (5-19) BUN 14 (8-23) mg/dL Creatinine 0.8 (0.5-0.9) mg/dL GFR Calculation 72.4 L (90-130) mL/min Glucose 132 H (65-115) mg/dL Calculated Osmolal ity 280 L (285-295) mOsm/k g Calcium 8.9 (8.5-10.5) mg/dL Total Bilirubin 0.9 (0.15-1.2) mg/dL AST 24 (0-32) U/L ALT 38 H (0-33) U/L Alkaline Phosphata se 112 H (35-105) IU/L Total Protein 6.5 L (6.6-8.7) g/dL Albumin 3.8 (3.5-5.2) g/dL Globulin 2.7 (1.3-4.6) g/dL Urine Color Dark yellow (Yellow) Urine Appearance Clear (CLEAR) Urine pH 7 (5-7) Ur Specific Gravit y 1.010 (1.005-1.030) Urine Protein 1+ H (Negative) Urine Glucose (UA) Trace H (Normal) Urine Ketones 1+ H (Negative) Urine Blood 2+ H (Negative) Urine Nitrate Negative (Negative) Urine Bilirubin 1+ H (Negative) Urine Urobilinogen 1 H (Negative) mg/dL Ur Leukocyte Rubina ase Negative (Negative) Urine RBC 0-4 H (0-2) /hpf Urine WBC Rare (0-5) /hpf Ur Squamous Epith Cells 0-4 H (0-5) /hpf Amorphous Sediment Not Reportable Urine Bacteria 1+ H (NONE) /hpf Urine Mucus 1+ /hpf Discharge Plan Discharge Patient Disposition: Home Clinical Impression: Enteritis, Dehydration Leukopenia Qualifiers: Leukopenia type: neutropenia Neutropenia type: secondary to cancer chemotherapy Qualified Code(s): D70.1 - Agranulocytosis secondary to cancer chemotherapy Condition: Stable Prescriptions: New ciprofloxacin HCl 500 mg tablet 500 mg PO BID Qty: 14 RF: 0 metronidazole 500 mg tablet 500 mg PO BID 7 Days Qty: 14 RF: 0 No Action aspirin 325 mg Tablet 325 mg PO DAILY RF: 0 levothyroxine [Synthroid] 100 mcg Tablet 100 mcg PO DAILY RF: 0 anastrozole 1 mg Tablet 1 mg PO DAILY RF: 0 doxepin 100 mg Capsule 100 mg PO DAILY RF: 0 calcium glucarate 500 mg Capsule 500 mg PO DAILY RF: 0 Probiotic Acidophilus 1.5 mg (250 million cell) Capsule 1,000 mmu cells PO DAILY RF: 0 hydrocodone-acetaminophen 5-325 mg tablet 1 - 2 tab PO Q5H PRN (Reason: pain) Qty: 30 RF: 0 Discharge Orders: Discharge ED (Routine); Ordered 01/18/21 Ordered By: Portillo Rios Referrals: Mary Lee MD [Primary Care Provider] - Discharge Diet: Usual diet Discharge Activity: Increase activity as tolerated Patient Instructions: Infectious Colitis (ED), Opioid Safety Activity Restrictions/Additional Instructions: Drink plenty of fluids. Take antibiotics as directed. Healthy diet and activity. Follow-up with primary care as needed. Return to the ER for new concerns. Coding Level of Care Code ED Record Press Tender for Chg Fwd Exam Comprehensive
[2021-01-18] MEDS: sodium chloride 0.9% 1,000 ML 999 ML IV ×2 (09:49→11:41)
[2021-01-18] MEDS: ondansetron 2 mg/ML SDV 2 mL 4 MG IVP (09:49)
[2021-01-18 09:58] LABS: Basophils % 3.1 %; Eosinophils # 0.1 10^3/uL (0.0-0.8); Eosinophils % 7.8 %; Hematocrit 43.7 % (37.0-47.0); Hemoglobin 14.9 g/dL (11.5-15.3); Lymphocytes # 0.4 10^3/uL (0.8-4.8); Lymphocytes % 64.1 %; Mean Corpuscular HGB Conc 34.1 g/dL (30.0-36.0); Mean Corpuscular Hemoglobin 31.1 pg (28.0-34.0); Mean Corpuscular Volume 91.2 fL (81-99); Mean Platelet Volume 10.4 fL (7.4-10.4); Monocytes % 3.1 %; Neutrophils % 18.8 %; Nucleated Red Blood Cells % 0 %; Platelet Count 226 10^3/cmm (130-400); Red Blood Count 4.79 10^6/uL (4.1-5.3); Red Cell Distribution Width 12.5 % (12.1-15.1)
[2021-01-18 10:18] LABS: Alanine Aminotransferase 38 U/L (0-33); Albumin Level 3.8 g/dL (3.5-5.2); Alkaline Phosphatase 112 IU/L (35-105); Anion Gap 14.8 (5-19); Aspartate Amino Transferase 24 U/L (0-32); Blood Urea Nitrogen 14 mg/dL (8-23); Calcium 8.9 mg/dL (8.5-10.5); Carbon Dioxide 25 mmol/L (22-29); Chloride 98 mmol/L (98-107); Globulin 2.7 g/dL (1.3-4.6); Glomerular Filtration Rate 72.4 mL/min (90-130); Glucose 132 mg/dL (65-115); Osmolality Calculated 280 mOsm/kg (285-295); Potassium 3.8 mmol/L (3.5-5.1); Sodium 134 mmol/L (136-145); Total Bilirubin 0.9 mg/dL (0.15-1.2); Total Protein 6.5 g/dL (6.6-8.7)
[2021-01-18 10:37] LABS: Slide Review Slide Review Perform
[2021-01-18 10:39] LABS: Neutrophils # 0.12 10^3/uL (1.8-7.7); White Blood Count 0.6 10^3/uL (4.0-10.0)
[2021-01-18 10:49] VITALS: BP 106/77; PULSE 85; RESP 16; O2SAT 92
[2021-01-18 11:04] LABS: Bilirubin Urine 1+ (Negative); Blood Urine 2+ (Negative); Glucose Urine UA Trace (Normal); Ketones Urine 1+ (Negative); Leukocyte Esterase Urine Negative (Negative); Nitrate Urine Negative (Negative); Protein Urine 1+ (Negative); Urine Appearance Clear (CLEAR); Urine Color Dark Yellow (Yellow); Urobilinogen Urine 1 mg/dL (Negative); pH Urine 7 (5-7)
[2021-01-18 11:05] LABS: Add Urine Microscopic? YES
[2021-01-18 11:25] LABS: RBC Urine 0-4 /hpf (0-2); Squamous Epithelial Cell Urine 0-4 /hpf (0-5); WBC Urine RARE /hpf (0-5)
[2021-01-18 11:26] LABS: Bacteria Urine 1+ /hpf; Mucus Urine 1+ /hpf
[2021-01-18 11:27] LABS: Add Urine Culture? No
[2021-01-18 11:40] VITALS: RESP 16
[2021-01-18] MEDS: morphine 4 mg/mL SDV 1 mL 2 MG IVP (11:40)
[2021-01-18] MEDS: metroNIDAZOLE IV 500 MG/100 ML PREMIX 100 MG IV (11:44)
[2021-01-18] MEDS: ciprofloxacin 400 MG/200 ML PREMIX 200 MG IV (12:56)
[2021-01-18 13:04] VITALS: BP 132/71; PULSE 77; RESP 14; O2SAT 97
--- NOTE | 2021-01-18 13:05 | PC.NURSE ---
Pt updated on plan of care, no needs identified at this time, will continue to monitor.
--- NOTE | 2021-01-18 13:16 | PC.NURSE ---
Pt sts she is feeling much better, talking and smiling. Comfort measures offered, no needs identified, will continue to monitor.
[2021-01-18 14:20] VITALS: BP 131/68; PULSE 83; RESP 16; O2SAT 96
== END 2021-01-18 14:21 | disposition home or self-care (01) ==
PROVIDERS: Emergency Provider Nurse Practitioner Family; PCP Family Medicine
DX: D70.1 Agranulocytosis secondary to cancer chemotherapy (principal); K52.9 Noninfective gastroenteritis and colitis, unspecified; E86.0 Dehydration; Z79.82 Long term (current) use of aspirin; Z87.891 Personal history of nicotine dependence
CPT/HCPCS: 80053; 81001; 85025; 87040; 96365; 96367; 96375; 99284; J0744; J2270; J2405; J7030; S0030

== ENCOUNTER 2021-01-19 05:34 | Inpatient (IN) | payer OTHER, SELFPAY ==
[2021-01-19] VITALS (8 sets, daily range): BP systolic 129–170; BP diastolic 71–77; PULSE 88–92; RESP 16–26; TEMP 37.1–37.6; O2SAT 94–97; BMI 40.3
--- NOTE | 2021-01-19 06:08 | XRR_ITS ---
PROCEDURE INFORMATION: Exam: XR Chest Exam date and time: 01/19/2021 6:16 AM Age: 65 years old Clinical indication: Other: No chest complaints; Prior surgery; Surgery type: Breast; Additional info: Dyspnea TECHNIQUE: Imaging protocol: XR of the chest. Views: 1 view. COMPARISON: CR XR chest 1V portable [id number] 12/04/2020 3:14 PM FINDINGS: Lungs: Mild subsegmental atelectasis is present in the right base. Pleural spaces: Unremarkable. No pleural effusion. No pneumothorax. Heart/Mediastinum: A MediPort catheter is present with the tip projecting on the right atrium. Bones/joints: Unremarkable. XR/XR chest 1V portable [id number] IMPRESSION: Mild subsegmental atelectasis in the right base. When compared to the previous study there is now better aeration of the lungs.
--- NOTE | 2021-01-19 06:23 | W.ED.WEAKNES ---
HPI - Weakness General: Chief complaint: Weakness Stated complaint: STATES WAS HERE FOR UTI AND SYMPTOMS ARE WORSE Time Seen by Provider: 01/19/21 06:04 History of Present Illness: HPI Narrative: 65yo presents to the emergency room with complaints of generalized weakness. She was seen yesterday in the emergency room and treated for a UTI. She initially felt better and then began feeling worse again. She is currently being treated for breast cancer she was diagnosed a year ago had a lumpectomy underwent chemo and radiation for the solitary tumor with no local or distant metastasis. She returned earlier this year with a second primary tumor with slightly different characteristics according to the oncology note. She underwent lumpectomy she currently has a port and started chemo recently. She has had her first dose of chemo has had diarrhea since this has not been able to keep up with fluid intake she also has severe myalgias. Her primary complaint at this time is the myalgias and diarrhea and generalized weakness feeling. She denies any fever. She is not had any vomiting but she has been extremely nauseous. Has not had any shortness of breath and other than abdominal discomfort from cramping of the diarrhea has not had any severe pain. She denies any hematochezia melena hematemesis coffee-ground emesis. MD Complaint: generalized weakness Onset (ago): day(s) Duration: constant Location: generalized Severity: moderate Relieving factors: none Exacerbating factors: none Associated symptoms: Denies chest pain, chills, confusion, melena, decreased appetite, diaphoresis, dysuria, easy bruising, fever(s), headache(s), myalgias, nausea, rash, short of breath, syncope or vomiting Review of Systems Const: Denies: fever(s), chills or diaphoresis ENMT: Denies: throat pain, ear or mastoid pain, nasal discharge or nasal congestion Card: Denies: chest pain or syncope Resp: Denies: dyspnea, productive cough or non-productive cough GI: Reports: diarrhea; Denies: nausea, vomiting or melena : Denies: dysuria Skin/Breast: Denies: rash or pruritus Neuro: Denies: headache(s) or confusion Ankit/Lymph: Denies: easy bruising PFSH ED PFSH: Medical History (Updated 01/19/21 @ 11:56 by Alberto Lozano DO) Breast cancer Depression Hypothyroidism Insomnia Surgical History (Updated 01/19/21 @ 09:52 by Chidi Frias MD) H/O total knee replacement H/O tubal ligation History of cholecystectomy History of lumpectomy Family History (Updated 01/19/21 @ 09:52 by Chidi Frias MD) Other Dementia Social History (Updated 01/19/21 @ 09:52 by Chidi Frias MD) Quit status (tobacco): has quit using tobacco Smoking risk assessment/counseling performed?: No Alcohol intake: never Physical Exam Const: COMMON NORMALS: no acute distress GENERAL APPEARANCE: cooperative and comfortable ORIENTATION/CONSCIOUSNESS: Yes awake, Yes oriented to person, Yes oriented to place and Yes oriented to time HENMT: COMMON NORMALS: normocephalic and atraumatic HEAD & SCALP: normocephalic and atraumatic Neck/C-Spine: COMMON NORMALS: no JVD Resp: COMMON NORMALS: normal respiratory effort, No retractions, No use of accessory muscles and clear to auscultation bilaterally AUSCULTATION: clear to auscultation bilaterally Cardio: COMMON NORMALS: no JVD, regular rate, regular rhythm and No murmurs present (Cardio) RATE: regular rate RHYTHM: regular rhythm GI: COMMON NORMALS: Soft to palpation and No hepatosplenomegaly present AUSCULTATION: Yes normoactive bowel sounds PALPATION: Yes Soft to palpation, No Tenderness to palpation present (GI), No Guarding due to palpation present (GI) and Yes No hepatosplenomegaly present Extremity: COMMON NORMALS: normal to inspection, capillary refill normal, no clubbing, cyanosis or edema, no calf tenderness and no pedal edema Neuro: SENSORIUM/ORIENTATION: Yes oriented to person, Yes oriented to place and Yes oriented to time Skin: COMMON NORMALS: no rashes or lesions noted GENERAL SKIN EXAM: no rashes or lesions noted Course Vital Signs: Vital signs: Vital Signs Temperature 98.7 F 01/19/21 05:38 Pulse Rate 91 01/19/21 10:48 Respiratory Rate 18 01/19/21 07:04 Blood Pressure 153/72 01/19/21 10:48 Pulse Oximetry 96 01/19/21 10:48 MDM - Weakness MDM Narrative: Medical decision making narrative: Really neutropenic and only if she has a cystitis. She has going to require hospitalization IV fluids for symptom control also cover with antibiotics blood cultures done yesterday were negative repeat urine today is unremarkable there is contamination yesterday so culture was not done discussed Dr. Harley orders written Lab Data: Labs: Lab Results 01/19/21 01/19/21 01/19/21 Range/Units 06:43 06:43 06:43 WBC 0.5 L* (4.0-10.0) 10^3/ uL RBC 4.34 (4.1-5.3) 10^6/u L Hgb 13.6 (11.5-15.3) g/dL Hct 40.3 (37.0-47.0) % MCV 92.9 (81-99) fL MCH 31.3 (28.0-34.0) pg MCHC 33.7 (30.0-36.0) g/dL RDW 12.4 (12.1-15.1) % Plt Count 205 (130-400) 10^3/c mm MPV 10.0 (7.4-10.4) fL Neut % (Auto) 4.5 % Lymph % (Auto) 68.9 % Centre % (Auto) 22.2 % Eos % (Auto) 4.4 % Baso % (Auto) 0.0 % Neut # (Auto) 0.02 L* (1.8-7.7) 10^3/u L Lymph # (Auto) 0.3 L (0.8-4.8) 10^3/u L Centre # (Auto) 0.1 L (0.2-0.9) 10^3/u L Eos # (Auto) 0.0 (0.0-0.8) 10^3/u L Baso # (Auto) 0.0 (0.0-0.1) 10^3/u L Nucleated RBC % (a uto) 0 % Nucleated RBCs # 0.0 /100WBC Sodium 135 L (136-145) mmol/L Potassium 4.5 (3.5-5.1) mmol/L Chloride 99 (98-107) mmol/L Carbon Dioxide 24 (22-29) mmol/L Anion Gap 16.5 (5-19) BUN 9 (8-23) mg/dL Creatinine 0.7 (0.5-0.9) mg/dL GFR Calculation 84.5 L (90-130) mL/min Glucose 124 H (65-115) mg/dL Calculated Osmolal ity 280 L (285-295) mOsm/k g Lactic Acid 1.5 (0.5-2.2) mmol/L Calcium 8.6 (8.5-10.5) mg/dL Total Bilirubin 1.3 H (0.15-1.2) mg/dL AST 26 (0-32) U/L ALT 38 H (0-33) U/L Alkaline Phosphata se 101 (35-105) IU/L Total Protein 6.1 L (6.6-8.7) g/dL Albumin 3.5 (3.5-5.2) g/dL Globulin 2.6 (1.3-4.6) g/dL TSH (0.27-4.20) uIU/ mL Urine Color (Yellow) Urine Appearance (CLEAR) Urine pH (5-7) Ur Specific Gravit y (1.005-1.030) Urine Protein (Negative) Urine Glucose (UA) (Normal) Urine Ketones (Negative) Urine Blood (Negative) Urine Nitrate (Negative) Urine Bilirubin (Negative) Urine Urobilinogen (Negative) mg/dL Ur Leukocyte Rubina ase (Negative) Urine RBC (0-2) /hpf Urine WBC (0-5) /hpf Ur Squamous Epith Cells (0-5) /hpf Amorphous Sediment Urine Bacteria (NONE) /hpf Urine Mucus /hpf 01/19/21 01/19/21 Range/Units 06:43 07:18 WBC (4.0-10.0) 10^3/ uL RBC (4.1-5.3) 10^6/u L Hgb (11.5-15.3) g/dL Hct (37.0-47.0) % MCV (81-99) fL MCH (28.0-34.0) pg MCHC (30.0-36.0) g/dL RDW (12.1-15.1) % Plt Count (130-400) 10^3/c mm MPV (7.4-10.4) fL Neut % (Auto) % Lymph % (Auto) % Centre % (Auto) % Eos % (Auto) % Baso % (Auto) % Neut # (Auto) (1.8-7.7) 10^3/u L Lymph # (Auto) (0.8-4.8) 10^3/u L Centre # (Auto) (0.2-0.9) 10^3/u L Eos # (Auto) (0.0-0.8) 10^3/u L Baso # (Auto) (0.0-0.1) 10^3/u L Nucleated RBC % (a uto) % Nucleated RBCs # /100WBC Sodium (136-145) mmol/L Potassium (3.5-5.1) mmol/L Chloride (98-107) mmol/L Carbon Dioxide (22-29) mmol/L Anion Gap (5-19) BUN (8-23) mg/dL Creatinine (0.5-0.9) mg/dL GFR Calculation (90-130) mL/min Glucose (65-115) mg/dL Calculated Osmolal ity (285-295) mOsm/k g Lactic Acid (0.5-2.2) mmol/L Calcium (8.5-10.5) mg/dL Total Bilirubin (0.15-1.2) mg/dL AST (0-32) U/L ALT (0-33) U/L Alkaline Phosphata se (35-105) IU/L Total Protein (6.6-8.7) g/dL Albumin (3.5-5.2) g/dL Globulin (1.3-4.6) g/dL TSH 12.94 H (0.27-4.20) uIU/ mL Urine Color Bertie (Yellow) Urine Appearance Clear (CLEAR) Urine pH 7 (5-7) Ur Specific Gravit y 1.010 (1.005-1.030) Urine Protein Trace (Negative) Urine Glucose (UA) Norm (Normal) Urine Ketones 1+ H (Negative) Urine Blood 2+ H (Negative) Urine Nitrate Negative (Negative) Urine Bilirubin 1+ H (Negative) Urine Urobilinogen Norm (Negative) mg/dL Ur Leukocyte Rubina ase Negative (Negative) Urine RBC Rare (0-2) /hpf Urine WBC 0-4 H (0-5) /hpf Ur Squamous Epith Cells None (0-5) /hpf Amorphous Sediment Not Reportable Urine Bacteria Trace (NONE) /hpf Urine Mucus Trace /hpf Discharge Plan Discharge Patient Disposition: Home Clinical Impression: Neutropenia, Breast CA, Chemotherapy induced diarrhea Condition: Stable Coding Level of Care Code ED Press 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
[2021-01-19 06:52] LABS: Eosinophils % 4.4 %; Hematocrit 40.3 % (37.0-47.0); Hemoglobin 13.6 g/dL (11.5-15.3); Lymphocytes # 0.3 10^3/uL (0.8-4.8); Lymphocytes % 68.9 %; Mean Corpuscular HGB Conc 33.7 g/dL (30.0-36.0); Mean Corpuscular Hemoglobin 31.3 pg (28.0-34.0); Mean Corpuscular Volume 92.9 fL (81-99); Monocytes # 0.1 10^3/uL (0.2-0.9); Monocytes % 22.2 %; Neutrophils % 4.5 %; Nucleated Red Blood Cells % 0 %; Platelet Count 205 10^3/cmm (130-400); Red Blood Count 4.34 10^6/uL (4.1-5.3); Red Cell Distribution Width 12.4 % (12.1-15.1)
[2021-01-19] MEDS: morphine 4 mg/mL SDV 1 mL IVP (07:04)
[2021-01-19] MEDS: ondansetron 2 mg/ML SDV 2 mL 4 MG IVP (07:07)
[2021-01-19 07:13] LABS: Alanine Aminotransferase 38 U/L (0-33); Albumin Level 3.5 g/dL (3.5-5.2); Alkaline Phosphatase 101 IU/L (35-105); Anion Gap 16.5 (5-19); Aspartate Amino Transferase 26 U/L (0-32); Blood Urea Nitrogen 9 mg/dL (8-23); Calcium 8.6 mg/dL (8.5-10.5); Carbon Dioxide 24 mmol/L (22-29); Chloride 99 mmol/L (98-107); Globulin 2.6 g/dL (1.3-4.6); Glomerular Filtration Rate 84.5 mL/min (90-130); Glucose 124 mg/dL (65-115); Osmolality Calculated 280 mOsm/kg (285-295); Potassium 4.5 mmol/L (3.5-5.1); Sodium 135 mmol/L (136-145); Total Bilirubin 1.3 mg/dL (0.15-1.2); Total Protein 6.1 g/dL (6.6-8.7)
[2021-01-19 07:14] LABS: Lactic Sepsis W/Reflex 1.5 mmol/L (0.5-2.2)
[2021-01-19 07:17] LABS: White Blood Count 0.5 10^3/uL (4.0-10.0)
[2021-01-19 07:18] LABS: Neutrophils # 0.02 10^3/uL (1.8-7.7)
[2021-01-19 07:51] LABS: Add Urine Microscopic? YES; Bilirubin Urine 1+ (Negative); Blood Urine 2+ (Negative); Glucose Urine UA Norm (Normal); Ketones Urine 1+ (Negative); Leukocyte Esterase Urine Negative (Negative); Nitrate Urine Negative (Negative); Protein Urine Trace (Negative); RBC Urine RARE /hpf (0-2); Urine Appearance Clear (CLEAR); Urine Color Orange (Yellow); Urobilinogen Urine Norm (Negative); WBC Urine 0-4 /hpf (0-5); pH Urine 7 (5-7)
[2021-01-19 07:52] LABS: Add Urine Culture? No; Bacteria Urine TRACE /hpf; Mucus Urine TRACE /hpf
[2021-01-19] MEDS: cefTAZidime 2,000 MG in sodium chloride 0.9% (plus) 50 ML 150 MG IV (08:07)
--- NOTE | 2021-01-19 08:40 | P.HP_ITS ---
Providers/Chief Complaint Primary Care Provider: Mary Lee MD Chief Complaint: STATES WAS HERE FOR UTI AND SYMPTOMS ARE WORSE History of Present Illness Gisel Shipley is a 65 year old female currently being treated for breast ca ncer with chemotherapy with last treatment about 7 to 10 days ago who presents today with complaints of severe weakness, inability to take care of herself at home, severe diarrhea. She denies any fever. She was recently seen in the emergency department yesterday and given an antibiotic prescription which she has yet to fill. This was being employed secondary to concerns of colitis or UTI. Patient denies any abdominal pain. She has had significant decrease in p.o. intake of fluids and solids. She has not noticed any blood in her stool. She is not short of breath. No personal history of Covid, exposure to Covid, or vaccine for Covid. Review of Systems General: Reports: 10 or more systems reviewed and unremarkable except in HPI and below Const: Reports: malaise; Denies: fever(s) or chills Eyes: Denies: change in vision ENMT: Denies: throat pain Card: Denies: chest pain Resp: Denies: dyspnea GI: Reports: diarrhea; Denies: abdominal pain or nausea : Denies: flank pain or difficulty voiding Musc: Denies: neck pain Skin/Breast: Denies: rash Neuro: Denies: headache(s) Psych: Denies: anxiety or depression Endo: Denies: polyuria Ankit/Lymph: Denies: easy bruising All/Imm: Denies: urticaria Medications/Allergies Home Medications Medication Instructions Recorded Confirmed Last Taken Type aspirin 325 mg PO DAILY 12/05/19 01/19/21 01/12/21 History levothyroxine [Synthroid] 100 mcg PO DAILY 12/05/19 01/19/21 01/12/21 History Probiotic Acidophilus 1,000 mmu cells PO DAILY 12/03/20 01/19/21 01/12/21 History calcium glucarate 500 mg PO DAILY 12/03/20 01/19/21 01/12/21 History doxepin 100 mg PO DAILY PRN 12/03/20 01/19/21 12/02/20 History hydrocodone-acetaminophen 1 - 2 tab PO Q5H PRN #30 tab 12/04/20 01/19/21 Unknown Rx ciprofloxacin HCl 500 mg PO BID #14 tab 01/18/21 01/19/21 Unknown Rx metronidazole 500 mg PO BID 7 Days #14 tab 01/18/21 01/19/21 Unknown Rx dexamethasone 8 mg PO BID 01/19/21 01/19/21 Unknown History lorazepam 0.5 - 1 mg PO TID PRN 01/19/21 01/19/21 Unknown History prochlorperazine maleate 10 mg PO Q4H PRN 01/19/21 01/19/21 Unknown History Allergies Allergy/AdvReac Type Severity Reaction Status Date / Time naproxen [From Aleve] Allergy ADR-Itching Verified 01/18/21 09:27 silver Allergy ALGY-Rash Verified 01/18/21 09:27 [From Tegaderm AG Mesh] PFSH Acute PFSH: Medical History (Updated 01/19/21 @ 10:00 by Chidi Frias MD) Breast cancer Depression Hypothyroidism Insomnia Surgical History (Updated 01/19/21 @ 09:52 by Chidi Frias MD) H/O total knee replacement H/O tubal ligation History of cholecystectomy History of lumpectomy Family History (Updated 01/19/21 @ 09:52 by Chidi Frias MD) Other Dementia Social History (Updated 01/19/21 @ 09:52 by Chidi Frias MD) Quit status (tobacco): has quit using tobacco Smoking risk assessment/counseling performed?: No Alcohol intake: never Vitals/I&O/Wt Last Vital Signs Temp 98.7 F 01/19/21 05:38 Pulse 89 01/19/21 05:38 Resp 18 01/19/21 07:04 BP 170/71 01/19/21 05:38 Pulse Ox 97 01/19/21 05:38 Weight last 48 hrs Weight 106.594 kg Physical Exam Narrative: EXAM NARRATIVE: General exam is a white female, who is conversant HEENT: Pupils equally round. Oropharynx clear. Neck is supple no lymphadenopathy or thyromegaly Cardiovascular regular rate and rhythm without murmur, no S3 or S4 Lungs are clear to auscultation bilaterally. No wheezing or crackles Abdomen is soft. Positive bowel sounds. No obvious organomegaly. Nontender. was deferred Extremities no cyanosis clubbing or edema, cap refill brisk Skin no rash Neuro no obvious focal deficits. Data : 01/19/21 06:43 01/19/21 06:43 Micro: Microbiology 01/19/21 07:28 Blood Culture - Preliminary Blood SPECIMEN COLLECTED 01/19/21 07:28 Blood Culture - Preliminary Blood SPECIMEN COLLECTED Other data: LFTs demonstrated an elevated bilirubin at 1.3 and an elevated ALT at 38. Other LFTs are normal. TSH is ordered and elevated at 12.9 Urinalysis demonstrates 0-4 white blood cells, rare red blood cells Chest x-ray demonstrates mild subsegmental atelectasis right lung. Port is noted right chest. A&P Assessment and plan (1) Neutropenia: She has significant neutropenia with an ANC less than 500 since her chemotherapy she received on January 05 consisting of carboplatinum, Taxotere, Herceptin. I have visited briefly with her oncologist. Secondary to her diarrhea, weakness, mild dehydration she will need treatment as if this is fever with neutropenia. Cultures have been obtained. Cefepime has been initiated. Vancomycin will be added as she has a port, right chest. Will await cultures. Initiate Neupogen 480 mcg daily until recovery of white blood cell count. Reverse isolation Status: Acute (2) Weakness: Hydration Support as above Status: Acute (3) Anorexia: Hydration Initiate diet Zofran for nausea Status: Acute (4) Diarrhea: Monitor for any recurrent diarrhea Currently placed on cefepime If recurrent diarrhea occurs consider culture, C. difficile toxin Status: Acute Additional A&P Information Hypothyroidism, increase home medication as TSH elevated Full code Lovenox for DVT prophylaxis Attestations Medical Necessity Statement*: Will need greater than 2 midnight stay for evaluation of neutropenia, diarrhea with concern of infection. Time Spent in Patient Care: Greater than 35 minutes Coding Level of Care Code Acute Scraper Operator for g Fwd Diagnoses Neutropenia D70.9 Weakness R53.1 Anorexia R63.0 Diarrhea R19.7
[2021-01-19 09:05] LABS: Thyroid Stimulating Hormone 12.94 uIU/mL (0.27-4.20)
[2021-01-19] MEDS: enoxaparin 40 mg/0.4 mL Syringe SUBCUT (13:05)
[2021-01-19] MEDS: sodium chloride 0.9% 1,000 ML 100 ML IV (13:05)
[2021-01-19] MEDS: vancomycin 1,250 MG/250 ML PIGGYBACK 200 MG IV ×2 (13:06→22:53)
[2021-01-19] MEDS: cefepime 2,000 MG in sodium chloride 0.9% (plus) 50 ML 100 MG IV (16:16)
[2021-01-19] MEDS: oxyCODONE-APAP 5-325 mg Tablet 1 TAB PO ×2 (17:10→22:04)
[2021-01-20] VITALS (8 sets, daily range): BP systolic 131–158; BP diastolic 70–81; PULSE 74–89; RESP 16–20; TEMP 36.6–37.2; O2SAT 94–97
[2021-01-20] MEDS: cefepime 2,000 MG in sodium chloride 0.9% (plus) 50 ML 100 MG IV ×3 (00:28→15:35)
[2021-01-20] MEDS: sodium chloride 0.9% 1,000 ML 100 ML IV ×2 (02:21→15:38)
[2021-01-20 05:16] LABS: Hematocrit 37.5 % (37.0-47.0); Hemoglobin 12.3 g/dL (11.5-15.3); Lymphocytes # 0.5 10^3/uL (0.8-4.8); Mean Corpuscular HGB Conc 32.8 g/dL (30.0-36.0); Mean Corpuscular Hemoglobin 31.2 pg (28.0-34.0); Mean Corpuscular Volume 95.2 fL (81-99); Mean Platelet Volume 10.1 fL (7.4-10.4); Monocytes # 0.4 10^3/uL (0.2-0.9); Nucleated Red Blood Cells % 0 %; Platelet Count 196 10^3/cmm (130-400); Red Blood Count 3.94 10^6/uL (4.1-5.3); Red Cell Distribution Width 12.6 % (12.1-15.1)
[2021-01-20] MEDS: ondansetron 2 mg/ML SDV 2 mL 4 MG IVP (05:26)
[2021-01-20 05:32] LABS: Alanine Aminotransferase 29 U/L (0-33); Albumin Level 3.3 g/dL (3.5-5.2); Alkaline Phosphatase 86 IU/L (35-105); Aspartate Amino Transferase 13 U/L (0-32); Blood Urea Nitrogen 7 mg/dL (8-23); Calcium 8.5 mg/dL (8.5-10.5); Carbon Dioxide 26 mmol/L (22-29); Chloride 100 mmol/L (98-107); Globulin 2.3 g/dL (1.3-4.6); Glomerular Filtration Rate 84.5 mL/min (90-130); Glucose 113 mg/dL (65-115); Osmolality Calculated 273 mOsm/kg (285-295); Sodium 132 mmol/L (136-145); Total Bilirubin 0.7 mg/dL (0.15-1.2); Total Protein 5.6 g/dL (6.6-8.7)
[2021-01-20 05:39] LABS: Anion Gap 9.9 (5-19); Potassium 3.9 mmol/L (3.5-5.1)
[2021-01-20 05:57] LABS: Neutrophils # 0.05 10^3/uL (1.8-7.7); Slide Review Slide Review Perform
[2021-01-20] MEDS: lidocaine 2% viscous 1.667 ML, diphenhydrAMINE oral liq 4.165 MG, aluminum-mag hydrox-s... MUCOUS MEM (06:49)
[2021-01-20] MEDS: levothyroxine 125 mcg Tablet PO (08:12)
[2021-01-20] MEDS: acetaminophen 325 mg Tablet 650 MG PO ×2 (08:18→15:42)
--- NOTE | 2021-01-20 08:19 | PM.PN ---
Subjective Subjective: Interval history: Still having diarrhea. No abdominal pain. No blood in stool Medications: Reviewed: Yes Vitals/I&O/Wt Last Vital Signs Temp 98.3 F 01/20/21 07:53 Pulse 78 01/20/21 07:53 Resp 16 01/20/21 07:53 BP 136/77 01/20/21 07:53 Pulse Ox 94 01/20/21 07:53 01/19/21 01/20/21 01/20/21 22:59 06:59 14:59 Intake Total 50 / 540 620 / 1160 Output Total 350 / 650 700 / 1350 Balance -300 / -110 -80 / -190 Weight last 48 hrs Weight 106.594 kg Physical Exam Narrative: EXAM NARRATIVE: General exam no apparent distress Neck is supple no lymphadenopathy or thyromegaly Cardiovascular regular rate and rhythm without murmur, no S3 or S4 Lungs are clear to auscultation bilaterally. No wheezing or crackles Abdomen is soft. Positive bowel sounds. No obvious organomegaly. Nontender. Extremities no cyanosis clubbing or edema, cap refill brisk Data : 01/20/21 05:05 01/20/21 05:05 Micro: Microbiology 01/19/21 07:28 Blood Culture - Preliminary Blood NEGATIVE TO DATE 01/19/21 07:28 Blood Culture - Preliminary Blood NEGATIVE TO DATE A&P Assessment and plan (1) Neutropenia: She has significant neutropenia with an ANC less than 500 since her chemotherapy she received on January 05 consisting of carboplatinum, Taxotere, Herceptin. I have visited briefly with her oncologist. Secondary to her diarrhea, weakness, mild dehydration she will need treatment as if this is fever with neutropenia. Cultures have been obtained. Continue vancomycin and cefepime, awaiting cultures Continue Neupogen 480 mcg daily until recovery of white blood cell count. Reverse isolation White blood cell count overall slightly improved Status: Acute (2) Weakness: Reduce fluids Support as above Status: Acute (3) Anorexia: Reduce fluids Encourage diet Zofran for nausea Status: Acute (4) Diarrhea: Diarrhea has recurred Check C. difficile, stool culture Patient has no abdominal discomfort Status: Acute Additional A&P Information Hypothyroidism, thyroid hormone increased to adjust for elevated TSH Full code Lovenox for DVT prophylaxis Attestations Medical Necessity Statement*: Needs continued hospitalization for IV antibiotics secondary to severe neutropenia, diarrhea in this immunocompromised patient who recently received a course of chemotherapy Coding Level of Care Code Acute Division Officer [employer] for Chg Fwd Diagnoses Neutropenia D70.9 Weakness R53.1 Anorexia R63.0 Diarrhea R19.7
[2021-01-20] MEDS: enoxaparin 40 mg/0.4 mL Syringe SUBCUT (11:11)
[2021-01-20] MEDS: vancomycin 1,250 MG/250 ML PIGGYBACK 200 MG IV ×2 (11:11→22:55)
--- NOTE | 2021-01-20 18:48 | PC.NURSE ---
SHIFT SUMMARY PATIENT HAS DONE WELL TODAY. MINIMAL COMPLAINTS OF MOUTH PAIN. TYLENOL GIVEN. LABS SLIGHTLY IMPROVED. PATIENT FEELS STRONGER. PATIENT HAS HAD 3 LOOSE BOWEL MOVEMENTS. URINE OUTPUT IMPROVING. NO COMPLAINTS AT THIS TIME.
--- NOTE | 2021-01-20 18:51 | PC.NURSE ---
THIS NURSE CONTACTED ONCOLOGY TO LET THEM KNOW THAT PATIENT WAS IN THE HOSPITAL AND RECENTLY HAD AN ECHO. THEY SAID THEY WOULD LET DR. BHAT KNOW.
[2021-01-20] MEDS: doxepin 50 mg Capsule 100 MG PO (21:22)
[2021-01-20] MEDS: oxyCODONE-APAP 5-325 mg Tablet 1 TAB PO (21:22)
[2021-01-20 22:19] LABS: Vancomycin Trough 8.9 ug/mL (10-15)
[2021-01-21] MEDS: cefepime 2,000 MG in sodium chloride 0.9% (plus) 50 ML 100 MG IV ×2 (00:26→08:22)
[2021-01-21 03:42] VITALS: BP 110/61; PULSE 79; RESP 18; TEMP 36.7; O2SAT 94
[2021-01-21 06:16] LABS: Basophils % 1.1 %; Eosinophils % 2.2 %; Hemoglobin 11.1 g/dL (11.5-15.3); Lymphocytes # 0.5 10^3/uL (0.8-4.8); Lymphocytes % 29.6 %; Mean Corpuscular HGB Conc 33.6 g/dL (30.0-36.0); Mean Corpuscular Hemoglobin 31.3 pg (28.0-34.0); Mean Platelet Volume 10.3 fL (7.4-10.4); Monocytes # 0.6 10^3/uL (0.2-0.9); Monocytes % 34.1 %; Neutrophils % 32.4 %; Nucleated Red Blood Cells % 0 %; Platelet Count 205 10^3/cmm (130-400); Red Blood Count 3.55 10^6/uL (4.1-5.3); Red Cell Distribution Width 12.5 % (12.1-15.1); White Blood Count 1.8 10^3/uL (4.0-10.0)
[2021-01-21 06:34] LABS: Anion Gap 9.2 (5-19); Blood Urea Nitrogen 6 mg/dL (8-23); Calcium 8.2 mg/dL (8.5-10.5); Carbon Dioxide 24 mmol/L (22-29); Chloride 101 mmol/L (98-107); Glucose 106 mg/dL (65-115); Osmolality Calculated 270 mOsm/kg (285-295); Potassium 3.2 mmol/L (3.5-5.1); Sodium 131 mmol/L (136-145)
[2021-01-21 07:07] LABS: Neutrophils # 0.58 10^3/uL (1.8-7.7); Slide Review Slide Review Perform
[2021-01-21 07:41] VITALS: BP 130/76; PULSE 82; RESP 16; TEMP 36.7; O2SAT 96
[2021-01-21] MEDS: levothyroxine 125 mcg Tablet PO (08:17)
[2021-01-21] MEDS: acetaminophen 325 mg Tablet 650 MG PO (08:17)
[2021-01-21 09:14] LABS: Magnesium 1.7 mg/dL (1.7-2.3)
[2021-01-21] MEDS: potassium chloride ER 20 mEq Tablet 40 MEQ PO ×2 (10:24→12:34)
[2021-01-21 11:20] VITALS: BP 109/62; PULSE 63; RESP 18; TEMP 36.7; O2SAT 95
[2021-01-21 12:00] VITALS: TEMP 36.7
--- NOTE | 2021-01-21 12:10 | PM.DCS ---
Discharge Providers Date of Admission: 01/19/21 10:41 Date of Discharge: January 21, 2021 Attending Provider at Admission: Chidi Frias MD Attending Provider at Discharge: Chidi Frais MD Primary Care Provider: Mary Lee MD Diagnoses at Discharge Discharge Diagnosis (1) Neutropenia: Status: Acute (2) Weakness: Status: Acute (3) Anorexia: Status: Acute (4) Diarrhea: Status: Acute Reason for Visit Reason for Visit: STATES HERE FOR UTI/SYMPTOMS ARE WORSE Hospital Course Hospital Course Gisel presented to the hospital with loose stools, weakness, and severe neutropenia. She had recently had chemotherapy administered for her breast cancer. She was placed in the hospital and cultures were obtained. Broad-spectrum antibiotics consisting of vancomycin and cefepime were started. I discussed her case briefly with her oncologist and Neupogen was started as well. Throughout her hospital stay she had gradual improvement. By the end of her hospital stay she had much less bowel movements, that had thickened up somewhat. White blood cell count had improved and absolute neutrophil count was 580. Platelets 205, hemoglobin 11.1, and white blood cell count 1.8. Potassium was slightly low, and being supplemented. On January 21, her discharge date she was feeling like she could go home. She had not had any fevers. She had been ambulating around the room, and able to tolerate a diet. She was therefore discharged. All cultures were negative at discharge, C. difficile negative, stool cultures negative. Physical Exam Narrative: EXAM NARRATIVE: General exam no apparent distress Cardiovascular regular rate and rhythm without murmur. Port without any erythema. Lungs clear Abdomen is soft with positive bowel sounds Extremities no cyanosis clubbing or edema Discharge Data Data Completed and Pending: Completed Studies During Hospitalization Category Date Time Status XR chest 1V romie ble [id number] Stat Exams 01/19/21 06:08 Completed Pending at discharge Category Date Time Status Blood Culture Sta t Lab 01/19/21 07:28 Results Labs from last 24 hours 01/21/21 01/21/21 01/21/21 05:18 05:18 05:18 WBC 1.8 L RBC 3.55 L Hgb 11.1 L Hct 33.0 L MCV 93.0 MCH 31.3 MCHC 33.6 RDW 12.5 Plt Count 205 MPV 10.3 Neut % (Auto) 32.4 Lymph % (Auto) 29.6 [place] % (Auto) 34.1 Eos % (Auto) 2.2 Baso % (Auto) 1.1 Neut # (Auto) 0.58 L* Lymph # (Auto) 0.5 L [place] # (Auto) 0.6 Eos # (Auto) 0.0 Baso # (Auto) 0.0 Nucleated RBC % (a uto) 0 Nucleated RBCs # 0.0 Sodium 131 L Potassium 3.2 L Chloride 101 Carbon Dioxide 24 Anion Gap 9.2 BUN 6 L Creatinine 0.6 GFR Calculation 101.0 Glucose 106 Calculated Osmolal ity 270 L Calcium 8.2 L Magnesium 1.7 Vancomycin Trough 01/20/21 21:30 WBC RBC Hgb Hct MCV MCH MCHC RDW Plt Count MPV Neut % (Auto) Lymph % (Auto) [place] % (Auto) Eos % (Auto) Baso % (Auto) Neut # (Auto) Lymph # (Auto) [place] # (Auto) Eos # (Auto) Baso # (Auto) Nucleated RBC % (a uto) Nucleated RBCs # Sodium Potassium Chloride Carbon Dioxide Anion Gap BUN Creatinine GFR Calculation Glucose Calculated Osmolal ity Calcium Magnesium Vancomycin Trough 8.9 L Vitals: Last Vital Signs Temp 98.1 F 01/21/21 11:20 Pulse 63 01/21/21 11:20 Resp 18 01/21/21 11:20 BP 109/62 01/21/21 11:20 Pulse Ox 95 01/21/21 11:20 Discharge Plan Discharge Patient Disposition: Home Condition: Stable Prescriptions: New levothyroxine 125 mcg Tablet 125 mcg PO DAILY Qty: 30 RF: 0 levofloxacin 750 mg tablet 750 mg PO DAILY 5 Days Qty: 5 RF: 0 Continued aspirin 325 mg Tablet 325 mg PO DAILY RF: 0 doxepin 100 mg Capsule 100 mg PO DAILY PRN (Reason: Sleep) RF: 0 calcium glucarate 500 mg Capsule 500 mg PO DAILY RF: 0 Probiotic Acidophilus 1.5 mg (250 million cell) Capsule 1,000 mmu cells PO DAILY RF: 0 hydrocodone-acetaminophen 5-325 mg tablet 1 - 2 tab PO Q5H PRN (Reason: pain) Qty: 30 RF: 0 metronidazole 500 mg tablet 500 mg PO BID 7 Days Qty: 14 RF: 0 prochlorperazine maleate 10 mg tablet 10 mg PO Q4H PRN (Reason: Nausea) RF: 0 dexamethasone 4 mg tablet 8 mg PO BID RF: 0 lorazepam 1 mg tablet 0.5 - 1 mg PO TID PRN (Reason: Nausea) RF: 0 Discontinued levothyroxine [Synthroid] 100 mcg Tablet 100 mcg PO DAILY RF: 0 ciprofloxacin HCl 500 mg tablet 500 mg PO BID Qty: 14 RF: 0 Discharge Orders: Discharge Order (Routine); Ordered 01/21/21 Ordered By: Chidi Frias Referrals: Mary Lee MD [Primary Care Provider] - 01/28/21 10:30 am Discharge Diet: Regular Discharge Activity: Increase activity as tolerated Patient Instructions: Opioid Safety Activity Restrictions/Additional Instructions: Take all medicine as prescribed. Follow-up with your oncologist as scheduled. You may take the metronidazole you received from the emergency department for 5 days along with the Levaquin. Discharge Attestations Time Spent in Discharge Care*: greater than 30 min Quality Metrics Clinical Quality Measures During this hospital stay, did patient experience: None Coding Level of Care Code Acute Chg FW DC note Diagnoses Neutropenia D70.9 Weakness R53.1 Anorexia R63.0 Diarrhea R19.7
[2021-01-21] MEDS: enoxaparin 40 mg/0.4 mL Syringe SUBCUT (12:33)
[2021-01-21 14:30] VITALS: BP 124/62; PULSE 76; O2SAT 96
[2021-01-21 14:45] VITALS: BP 124/62; PULSE 76; RESP 18; TEMP 36.7; O2SAT 96
--- NOTE | 2021-01-21 15:12 | PC.NURSE ---
Late entry 1445: Patient given discharge instructions. Went over instructions and all questions answered. Patient IV catheter removed at this time tip intact. Patient discharged at this time in stable condition.
== END 2021-01-21 14:45 | disposition home or self-care (01) | DRG 810 ==
LOC: ER 06:04 → MEDSURG 11:41
PROVIDERS: Admitting Provider Internal Medicine; Emergency Provider Family Medicine; PCP Family Medicine; Visit Provider Internal Medicine
DX: D70.1 Agranulocytosis secondary to cancer chemotherapy (principal); T45.1X5A Adverse effect of antineoplastic and immunosuppressive drugs, initial encounter; C50.919 Malignant neoplasm of unspecified site of unspecified female breast; Z79.899 Other long term (current) drug therapy; F32.9 Major depressive disorder, single episode, unspecified; E03.9 Hypothyroidism, unspecified; G47.00 Insomnia, unspecified; Z96.659 Presence of unspecified artificial knee joint; Z87.891 Personal history of nicotine dependence; E86.0 Dehydration
CPT/HCPCS: 36415; 71045; 80048; 80053; 80202; 81001; 83605; 83735; 84443; 85025; 87040; 87493; 87506; 96365; 96372; 96375; 99285; J0692; J0713; J1442; J1650; J2270; J2405; J3370; J7030

== ENCOUNTER 2021-01-26 06:11 | Outpatient (CLI) | payer OTHER, SELFPAY ==
[2021-01-26 10:26] LABS: Basophils % 0.6 %; Eosinophils % 0.3 %; Hematocrit 35.9 % (37.0-47.0); Hemoglobin 11.8 g/dL (11.5-15.3); Lymphocytes # 1.3 10^3/uL (0.8-4.8); Lymphocytes % 20.9 %; Mean Corpuscular HGB Conc 32.9 g/dL (30.0-36.0); Mean Corpuscular Hemoglobin 31.1 pg (28.0-34.0); Mean Corpuscular Volume 94.5 fL (81-99); Mean Platelet Volume 9.4 fL (7.4-10.4); Monocytes # 0.6 10^3/uL (0.2-0.9); Monocytes % 10.2 %; Neutrophils # 3.72 10^3/uL (1.8-7.7); Neutrophils % 60.2 %; Nucleated Red Blood Cells % 0.3 %; Platelet Count 236 10^3/cmm (130-400); Red Cell Distribution Width 13.2 % (12.1-15.1); White Blood Count 6.2 10^3/uL (4.0-10.0)
[2021-01-26 10:49] LABS: Alanine Aminotransferase 36 U/L (0-33); Albumin Level 3.3 g/dL (3.5-5.2); Alkaline Phosphatase 117 IU/L (35-105); Anion Gap 12.9 (5-19); Aspartate Amino Transferase 21 U/L (0-32); Blood Urea Nitrogen 14 mg/dL (8-23); Calcium 8.4 mg/dL (8.5-10.5); Carbon Dioxide 28 mmol/L (22-29); Chloride 103 mmol/L (98-107); Globulin 2.4 g/dL (1.3-4.6); Glomerular Filtration Rate 84.5 mL/min (90-130); Glucose 92 mg/dL (65-115); Osmolality Calculated 290 mOsm/kg (285-295); Potassium 3.9 mmol/L (3.5-5.1); Sodium 140 mmol/L (136-145); Total Bilirubin 0.2 mg/dL (0.15-1.2); Total Protein 5.7 g/dL (6.6-8.7)
[2021-01-26 11:13] LABS: Slide Review Slide Review Perform
== END 2021-01-26 06:12 | disposition home or self-care (01) ==
LOC: ONCMED 06:12
PROVIDERS: PCP Family Medicine; Visit Provider Nurse Practitioner
DX: C50.211 Malignant neoplasm of upper-inner quadrant of right female breast (principal); C50.412 Malignant neoplasm of upper-outer quadrant of left female breast; Z17.0 Estrogen receptor positive status [ER+]; Z79.899 Other long term (current) drug therapy
CPT/HCPCS: 36415; 36591; 80053; 85025

== ENCOUNTER 2021-01-27 05:43 | Outpatient (CLI) | payer OTHER, SELFPAY ==
--- NOTE | 2021-01-27 17:09 | ONC FU_ITS ---
Dr. Roberts follow up note Patient: Gisel Shipley Unit #: [id number]: 1955 Dicatated By: Roosevelt Roberts M.D.Date of Visit:January 27, 2021 Onc Med Follow-up/Prog Note History of Present Illness: Mrs. Shipley is a 65-year-old female with a history of right breast lumpectomy at age 18. She reports that since that lumpectomy at age 18 she has done self breast exams and follow-up mammography when age-appropriate. She states recently she noticed a mass in her LEFT breast and underwent mammography on September 21, 2019. The mammography did show the left breast is composed of heterogenous fibroglandular density tissue, asymmetric breast tissue left greater than right, upper outer quadrant was unchanged. There were no definite mammographaphic abnormalities identified at the palpable marker. Subsequently she underwent ultrasound of the left breast at the 1:48 PM position. A hypoechoic shadowing lesion at 2 PM position 4 cm from the nipple was suspicious for neoplasm. It measured 1.3 x 0.9 x 1.4 cm. Mrs. Shipley then underwent ultrasound of the guided left breast biopsy on October 17, 2019. This did show invasive mammary carcinoma with focal lobular features, grade 2, tumor involves all 5 cores taken. Prognostic profiling showed ER/ND strongly positive, HER-2/tony plus but negative for HER-2/tony overexpression by IHC and over amplification by FISH. Ki-67 was 36% which is high and unfavorable. She underwent left breast lumpectomy with sentinel lymph node biopsy on December 06, [address] Gong. The final pathology report showed a 2.5 cm invasive lobular carcinoma with clear surgical margins, T2 and 3 sentinel lymph nodes were examined which showed no evidence of metastatic disease???N0. Mrs. Shipley was started on Arimidex 1 mg daily with vitamin D and calcium supplementation on January 17, 2020. Her Oncotype DX score from January 20, 2020 show recurrence score 14???low; risk of distant recurrence with aromatase inhibitor was about 4% and average absolute chemotherapy benefit was less than 1%. She did undergo postlumpectomy radiation therapy to the LEFT breast from February 25, 2020 to March 24, 2020. She received a total dose of 42.56 José in 16 fractions followed by lumpectomy cavity boost of 10 José in 4 fractions. She has no family history of breast cancer and no history of hormonal supplementation. Mrs. Shipley underwent follow-up mammography/ultrasound on October 02, 2020. It did report a 1.7 x 1.2 x 0.9 cm mass in the RIGHT breast at the 3 o'clock position. On October 27, 2020 she underwent ultrasound-guided right breast biopsy. 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 HER-2/tony positive IHC 3+ positive for HER-2/tony overexpression. She underwent RIGHT breast lumpectomy with sentinel lymph node dissection on December 04, 2020. 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 pT2, pN0, grade 3, ER/ND weakly positive, HER-2/tony positive???stage Ib per Dr. Roberts's office note on January 05, 2021. discussed with Mrs. Shipley treatment options for her grade 3 HER-2/tony positive ER ND positive RIGHT breast cancer to include systemic chemotherapy with Herceptin along with chemotherapy agents including Adriamycin Cytoxan followed by Taxol plus Herceptin, Cytoxan/Taxotere and Herceptin or carboplatin Taxotere Herceptin. She is high risk for recurrence based on the grade 3 disease and the tumor size of more than 2 cm. Her ER/ND is weakly positive. She did develop the RIGHT breast cancer while on Arimidex for treatment of her LEFT breast cancer. She has a history of radiation to the LEFT breast so there is concern of risk of cardiomyopathy with chemo treatment related cardiotoxicity. Adriamycin will not be considered at this time. She has been advised to pursue treatment with carboplatin Taxotere along with Herceptin for 6 treatments followed by Herceptin for a total of 52 weeks along with hormonal therapy for 5 years. She will also be referred to radiation oncology for postlumpectomy radiation therapy. Mrs. Shipley begin her first cycle of carboplatin with AUC of 6 and Taxotere 75 mg per metered squared every 3 weeks along with Herceptin for total of 6 cycles On January 12, 2021 After completion she will continue Herceptin for a total of a year. She did have baseline echocardiogram on 12/01/2020 which reported her left ventricular ejection fraction estimated at 70%. We will plan for echocardiogram limited views for LVEF monitoring every 3 months while she is on Herceptin. Came for follow-up, denies any specific complaints except patient got very sick after first cycle of chemotherapy she was diagnosed with urine tract infection and was treated with antibiotics and then again on January 19, 2021 she was admitted to hospital with severe diarrhea, weakness and severe neutropenia, her white blood count was 1.8 and ANC was around 500, and hypokalemia patient was treated with broad-spectrum antibiotics and supportive care and Neupogen was given patient overall condition improved and was discharged home on January 21, 2021., Today denies any specific complaints, no fever chills, no nausea or vomiting, no diarrhea or constipation, patient is accompanied by her son and was considering discontinue chemotherapy because of related side effects and toxicity. Medications: Anastrozole 1 Tablet (of 1 mg) Oral daily, Aspirin Adult 1 Tablet (of 325 mg) Oral daily, Calcium + D 2 Tablet (of 600 mg) Oral daily, Doxepin HCl 1 Capsule (of 100 mg) Capsule Oral at bedtime, Levothyroxine Sodium 1 Tablet (of 100 mcg) Oral daily, Probiotic 1 Capsule Oral daily Allergies: Aleve Review of Systems: Review of Systems is not available for this patient. Vital Signs: Performed on January 27, 2021 13:34 Height - 64.00 in Weight - 248.8 lbs (HIGH) BSA - 2.15 sq.m BMI - 42.71 (HIGH) Temperature - 97.2 F (LOW) Pulse - 78 /min Respiration - 18 /min BP - 123/71 mm(hg) O2 Sat - 98 % Pain - 0 Fatigue - 6 Performance Status: 1 - No physically strenuous activity, but ambulatory and able to carry out light or sedentary work (e.g. office work, light house work). (ECOG) Physical Examination: Respiratory - Lungs are clear to auscultation, Cardiovascular - Regular rate and rhythm of heart, Gastrointestinal - Soft, bowel sounds present, Extremities - No visible edema or rash, No mouth sores, no thrush, no jaundice. Lab/Imaging: Test performed on Jan 12, 2021 08:25 Sodium 139 mmol/L Potassium 4.2 mmol/L Chloride 103 mmol/L CO2 22 mmol/L Anion Gap 18.2 BUN 12 mg/dL Creatinine 0.7 mg/dL Cr Clearance (Est) 143.8500 mL/min eGFR 84.5 mL/min Glucose 140 mg/dL Osmolality - Calculated 290 mOsm/kg Calcium 9.2 mg/dL Protein, Total 6.9 g/dL Albumin 4.2 g/dL Globulin 2.7 g/dL Bilirubin, Total 0.3 mg/dL ALT (SGPT) 22 U/L AST (SGOT) 15 U/L Alkaline Phosphatase 143 IU/L WBC 15.8 10 3/uL RBC 4.43 10 6/uL HGB 13.7 g/dL HCT 42.0 % MCV 94.8 fL MCH 30.9 pg MCHC 32.6 g/dL RDW 13.2 % Platelet Count 378 10 3/cmm MPV 9.8 fL Neutrophils 14.11 10 3/uL Lymphocytes 0.9 10 3/uL Monocytes 0.5 10 3/uL Eosinophils 0.1 10 3/uL Basophils 0.0 10 3/uL Neutrophil % 89.6 % Lymphocyte % 5.8 % Monocyte % 3.0 % Eosinophil % 0.4 % Basophils % 0.2 % NRBC % 0 % Impression: Newly diagnosis metaplastic carcinoma with chondroid, sarcomatoid, osteoid differentiation per ultrasound-guided biopsy of right breast done on October 27, 2020 Subsequently underwent lumpectomy with right axillary sentinel lymph node biopsy on December 04, 2020 which showed 2.4 cm, grade 3, metaplastic carcinoma with clear surgical margins, 0 out of 5 sentinel lymph nodes showed metastatic disease., T2, N0, grade 3, ER/ND weakly positive, HER-2/tony positive, stage Ib ER/ND weakly positive at 60% / 55% HER-2/tony positive IHC 3+, and HER-2/tony overexpression and gene over amplification 2. Invasive mammary carcinoma with focal lobular features, grade 2 per ultrasound-guided left breast biopsy done on 10/17/2019 status post lumpectomy Done on 12/06/2019 showed 2.5 cm invasive lobular carcinoma with clear surgical margins T2, 3 sentinel lymph nodes were examined showed no evidence of metastatic disease N0 stage IIa ER 91% positive, ND 89% positive, HER-2/tony negative. Oncotype DX score was 14, low risk, risk of distant recurrence is about 4% with aromatase inhibitor and no significant benefit from chemotherapy Started on Arimidex 1 mg p.o. daily for 5 years along with vitamin D and calcium supplement on March 18, 2020 status post postlumpectomy radiation therapy started on February 25, 2020 and completed on March 24, 2020 Arimidex discontinued on January 05, 2021, as patient was advised to start systemic chemotherapy for newly diagnosed HER-2/tony positive right breast cancer with weakly ER/ND positive disease Ultrasound left breast done on 09/21/2019 showed 1.3 x 0.9 x 1.4 cm mass at 2:00 position left breast. Started on systemic chemotherapy with carboplatin/docetaxel/Herceptin on January 12, 2021, plan to give her 6 cycles and then continue with Herceptin for total 52 weeks along with hormonal therapy Plan: Discussed with patient regarding her labs white blood count 6.2 hemoglobin 11.8 hematocrit 35.9 platelets 236,000 CMP within normal limits Clinically, patient is doing well with no new signs symptoms, tolerated first cycle of chemotherapy with Herceptin/carboplatin/Taxotere but with severe side effect including nausea vomiting diarrhea, severe neutropenia, urine tract infection requiring hospitalization. Mouth sores, at this point, we will modify her chemo dose and cap Her carboplatin to 750 mg and then also reduce Taxotere by 10% and consider Neulasta to prevent chemotherapy-induced neutropenia/leukopenia and to maintain chemotherapy schedule with dose modification and reassurance, patient agreed to proceed further systemic therapy Return to clinic in Tuesday with CBC CMP and also check urine analysis to ensure resolution of urine tract infection although patient has no symptoms. Signed By: Roosevelt Roberts M.D. <<Signature on File>>
== END 2021-01-27 05:44 | disposition home or self-care (01) ==
PROVIDERS: PCP Family Medicine; Visit Provider Internal Medicine Hematology & Oncology
DX: C50.211 Malignant neoplasm of upper-inner quadrant of right female breast (principal); C50.412 Malignant neoplasm of upper-outer quadrant of left female breast; Z17.0 Estrogen receptor positive status [ER+]; Z79.811 Long term (current) use of aromatase inhibitors; Z79.899 Other long term (current) drug therapy
CPT/HCPCS: 99214

== ENCOUNTER 2021-02-02 05:52 | Outpatient (CLI) | payer OTHER, SELFPAY ==
[2021-02-02] MEDS: alteplase 1 mg/mL SDV 2 mL 2 MG IV (08:43)
[2021-02-02 09:30] LABS: Basophils % 0.2 %; Hematocrit 35.5 % (37.0-47.0); Hemoglobin 11.7 g/dL (11.5-15.3); Lymphocytes # 0.7 10^3/uL (0.8-4.8); Lymphocytes % 3.7 %; Mean Corpuscular Hemoglobin 31.8 pg (28.0-34.0); Mean Corpuscular Volume 96.5 fL (81-99); Mean Platelet Volume 9.2 fL (7.4-10.4); Monocytes # 0.4 10^3/uL (0.2-0.9); Monocytes % 2.5 %; Neutrophils # 16.63 10^3/uL (1.8-7.7); Neutrophils % 92.8 %; Nucleated Red Blood Cells % 0 %; Platelet Count 456 10^3/cmm (130-400); Red Blood Count 3.68 10^6/uL (4.1-5.3); Red Cell Distribution Width 13.9 % (12.1-15.1); White Blood Count 17.9 10^3/uL (4.0-10.0)
[2021-02-02 09:49] LABS: Add Urine Microscopic? YES; Bilirubin Urine Neg (Negative); Blood Urine 2+ (Negative); Glucose Urine UA Norm (Normal); Ketones Urine Negative (Negative); Leukocyte Esterase Urine 1+ (Negative); Nitrate Urine Negative (Negative); Protein Urine Neg (Negative); RBC Urine RARE /hpf (0-2); Urine Appearance SL Hazy (CLEAR); Urine Color Yellow (Yellow); Urobilinogen Urine Norm (Negative); pH Urine 5 (5-7)
[2021-02-02 09:50] LABS: Add Urine Culture? No; Bacteria Urine 3+ /hpf; Squamous Epithelial Cell Urine 15-25 /hpf (0-5)
[2021-02-02 10:04] LABS: Alanine Aminotransferase 25 U/L (0-33); Albumin Level 4.1 g/dL (3.5-5.2); Alkaline Phosphatase 144 IU/L (35-105); Anion Gap 16.7 (5-19); Aspartate Amino Transferase 15 U/L (0-32); Blood Urea Nitrogen 12 mg/dL (8-23); Calcium 9.4 mg/dL (8.5-10.5); Carbon Dioxide 23 mmol/L (22-29); Chloride 104 mmol/L (98-107); Globulin 2.7 g/dL (1.3-4.6); Glomerular Filtration Rate 84.5 mL/min (90-130); Glucose 133 mg/dL (65-115); Osmolality Calculated 290 mOsm/kg (285-295); Potassium 4.7 mmol/L (3.5-5.1); Sodium 139 mmol/L (136-145); Total Bilirubin 0.3 mg/dL (0.15-1.2); Total Protein 6.8 g/dL (6.6-8.7)
--- NOTE | 2021-02-11 09:14 | ONC FU_ITS ---
[facility] Patient Note Patient: Gisel Shipley Unit #: [id number]: 1955 Dictated By: Tanisha MasonDate of Visit: February 02, 2021 Onc MED Follow-Up/Prog Note Chief Complaint: LEFT breast cancer-September 2019 RIGHT breast cancer-November 2020 History of Present Illness: Mrs. Shipley is a 65-year-old female with a history of right breast lumpectomy at age 18. She reports that since that lumpectomy at age 18 she has done self breast exams and follow-up mammography when age-appropriate. She states recently she noticed a mass in her LEFT breast and underwent mammography on September 21, 2019. The mammography did show the left breast is composed of heterogenous fibroglandular density tissue, asymmetric breast tissue left greater than right, upper outer quadrant was unchanged. There were no definite mammographaphic abnormalities identified at the palpable marker. Subsequently she underwent ultrasound of the left breast at the 1:48 PM position. A hypoechoic shadowing lesion at 2 PM position 4 cm from the nipple was suspicious for neoplasm. It measured 1.3 x 0.9 x 1.4 cm. Mrs. Shipley then underwent ultrasound of the guided left breast biopsy on October 17, 2019. This did show invasive mammary carcinoma with focal lobular features, grade 2, tumor involves all 5 cores taken. Prognostic profiling showed ER/LA strongly positive, HER-2/tony plus but negative for HER-2/tony overexpression by IHC and over amplification by FISH. Ki-67 was 36% which is high and unfavorable. She underwent left breast lumpectomy with sentinel lymph node biopsy on December 06, [address] Gong. The final pathology report showed a 2.5 cm invasive lobular carcinoma with clear surgical margins, T2 and 3 sentinel lymph nodes were examined which showed no evidence of metastatic disease???N0. Mrs. Shipley was started on Arimidex 1 mg daily with vitamin D and calcium supplementation on January 17, 2020. Her Oncotype DX score from January 20, 2020 show recurrence score 14???low; risk of distant recurrence with aromatase inhibitor was about 4% and average absolute chemotherapy benefit was less than 1%. She did undergo postlumpectomy radiation therapy to the LEFT breast from February 25, 2020 to March 24, 2020. She received a total dose of 42.56 José in 16 fractions followed by lumpectomy cavity boost of 10 José in 4 fractions. She has no family history of breast cancer and no history of hormonal supplementation. Mrs. Shipley underwent follow-up mammography/ultrasound on October 02, 2020. It did report a 1.7 x 1.2 x 0.9 cm mass in the RIGHT breast at the 3 o'clock position. On October 27, 2020 she underwent ultrasound-guided right breast biopsy. 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 HER-2/tnoy positive IHC 3+ positive for HER-2/tony overexpression. She underwent RIGHT breast lumpectomy with sentinel lymph node dissection on December 04, 2020. 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 pT2, pN0, grade 3, ER/LA weakly positive, HER-2/tony positive???stage Ib per Dr. Roberts's office note on January 05, 2021. discussed with Mrs. Shipley treatment options for her grade 3 HER-2/tony positive ER LA positive RIGHT breast cancer to include systemic chemotherapy with Herceptin along with chemotherapy agents including Adriamycin Cytoxan followed by Taxol plus Herceptin, Cytoxan/Taxotere and Herceptin or carboplatin Taxotere Herceptin. She is high risk for recurrence based on the grade 3 disease and the tumor size of more than 2 cm. Her ER/LA is weakly positive. She did develop the RIGHT breast cancer while on Arimidex for treatment of her LEFT breast cancer. She has a history of radiation to the LEFT breast so there is concern of risk of cardiomyopathy with chemo treatment related cardiotoxicity. Adriamycin will not be considered at this time. She has been advised to pursue treatment with carboplatin Taxotere along with Herceptin for 6 treatments followed by Herceptin for a total of 52 weeks along with hormonal therapy for 5 years. She will also be referred to radiation oncology for postlumpectomy radiation therapy. Mrs. Shipley begin her first cycle of carboplatin with AUC of 6 and Taxotere 75 mg per metered squared every 3 weeks along with Herceptin for total of 6 cycles On January 12, 2021 After completion she will continue Herceptin for a total of a year. She did have baseline echocardiogram on 12/01/2020 which reported her left ventricular ejection fraction estimated at 70%. We will plan for echocardiogram limited views for LVEF monitoring every 3 months while she is on Herceptin. Ms Shipley was seen by Dr Roberts for followup on 01-27-2021. She denied any specific complaints except she got very sick after first cycle of chemotherapy. She was diagnosed with urine tract infection and was treated with antibiotics. On January 19, 2021, she was admitted to hospital with severe diarrhea, weakness and severe neutropenia. Her white blood count was 1.8 and ANC was around 500. She also hypokalemia. She was treated with broad-spectrum antibiotics and supportive care and Neupogen was given patient overall condition improved and was discharged home on January 21, 2021. Her treatment was delayed on her 01/27/2021 visit to allow additional time for recovery. Ms. Shipley is here today for follow-up and consideration of cycle 2 carboplatin Taxotere and trastuzumab injection. She states overall she feels pretty good but she is had significant diarrhea. She has had some diarrhea- 5 stools already this morning. She is also having urinary frequency. She denies any fever or chills. She states her appetite is good. She denies any trouble swallowing. She is had no reflux symptoms. She denies any new shortness of breath orthopnea. She denies any hemoptysis. She has had no current nausea or vomiting. She denies any constipation. She said no lower extremity edema. She denies any peripheral neuropathy symptoms at this time. Her ECOG is 1. Past Medical History: Arthritis Depression Hypercholesterolemia Hypothyroidism Past Surgical History: Bilateral knee replacement Breast biopsy Cholecystectomy Hernia repair Right breast lumpectomy Thyroid ablation Tubal ligation Right internal jugular vein Port-A-Cath placement by Dr. Gong in 2020 Colonoscopy in 2009 Allergies: Aleve Medications: Anastrozole 1 Tablet (of 1 mg) Oral daily Aspirin Adult 1 Tablet (of 325 mg) Oral daily Calcium + D 2 Tablet (of 600 mg) Oral daily Doxepin HCl 1 Capsule (of 100 mg) Capsule Oral at bedtime Levothyroxine Sodium 1 Tablet (of 100 mcg) Oral daily Probiotic 1 Capsule Oral daily Family History: Ms. Shipley's mother at age 77: Alzheimer's disease. Ms. Shipley's father is alive. Social History: Ms. Shipley is and she is retired. Ms. Shipley quit smoking 9 years ago but had smoked for 15 years. She drinks occasionally. She consumes 1 drink/day 1 day/week. Ms. Shipley reports the following support systems: lives with spouse, significant other, family, or friends, lives in own house, supportive family/friends willing to assist with needs, and adequate transportation available for expected visits. Her diet consists of regular meals. She indicates her activity level as: regular exercise. Review Of Symptoms: <See Above> Vital Signs: Performed on February 02, 2021 10:22 Height - 64.00 in Weight - 240.4 lbs (LOW) BSA - 2.12 sq.m BMI - 41.26 (HIGH) Temperature - 96.7 F (LOW) Pulse - 91 /min Respiration - 19 /min BP - 120/78 mm(hg) O2 Sat - 95 % (LOW) Pain - 0,1 - No physically strenuous activity, but ambulatory and able to carry out light or sedentary work (e.g. office work, light house work). (ECOG) Physical Examination: Constitutional Alert, oriented, no acute distress. Skin pink, warm and dry. Head Normocephalic; atraumatic. Eyes Conjunctivae and sclerae are clear and without icterus. Pupils are reactive and equal. Neck Supple without masses or thyromegaly. No jugular venous distension. Hematologic/Lymphatic No petechiae or purpura. No tender or palpable lymph nodes in the cervical or supraclavicular areas. Respiratory Lungs are clear to auscultation without rhonchi or wheezing. Cardiovascular Regular rate and rhythm of heart without murmurs,clicks, gallops or rubs. Chest Right upper chest wall venous access device placement site is unremarkable. It has healed well. Abdomen Non-tender, non-distended, no masses or ascites. Good bowel sounds noted in all quads. No guarding or rebound tenderness. No pulsatile masses. Back/Spine Non-tender to palpation. Extremities No visible deformities, no cyanosis, clubbing or edema. Musculoskeletal No tenderness or swelling, normal range of motion without obvious weakness. Integumentary No rashes or lesions. Neurologic No sensory or motor deficits, normal cerebellar function, normal gait. Psychiatric Alert and oriented times three. Coherent speech. Verbalizes understanding of our discussions today. Laboratory:Test performed on February 09, 2021 13:05 WBC 3.3 10 3/uL RBC 4.04 10 6/uL HGB 12.5 g/dL HCT 38.8 % MCV 96.0 fL MCH 30.9 pg MCHC 32.2 g/dL RDW 14.9 % Platelet Count 334 10 3/cmm MPV 9.0 fL Neutrophils 2.66 10 3/uL Lymphocytes 0.5 10 3/uL Monocytes 0.1 10 3/uL Eosinophils 0.0 10 3/uL Basophils 0.0 10 3/uL Neutrophil % 81.2 % Lymphocyte % 14.6 % Monocyte % 2.7 % Eosinophil % 0.3 % Basophils % 0.6 % NRBC % 0 % Test performed on February 09, 2021 13:03 Sodium 134 mmol/L Potassium 4.5 mmol/L Chloride 99 mmol/L CO2 21 mmol/L Anion Gap 18.5 BUN 10 mg/dL Creatinine 0.8 mg/dL Cr Clearance (Est) 125.8700 mL/min eGFR 72.4 mL/min Glucose 169 mg/dL Osmolality - Calculated 281 mOsm/kg Calcium 8.9 mg/dL Protein, Total 7.4 g/dL Albumin 4.0 g/dL Globulin 3.4 g/dL Bilirubin, Total 0.2 mg/dL ALT (SGPT) 36 U/L AST (SGOT) 29 U/L Alkaline Phosphatase 132 IU/L Test performed on February 02, 2021 08:45 Ua Color Yellow Ua Appearance SL Hazy Ua Glucose Norm Ua Bilirubin Neg Ua Ketones Negative Ua Specific [place] 1.020 Ua Blood 2+ Ua pH 5 Ua Protein Neg Ua Nitrites Negative Ua Leukocyte Esterase 1+ Ua Micro: WBC 5-10 /hpf Ua Micro: RBC RARE /hpf Ua Micro: Squam Epith Cells 15-25 CULTURE NOT INDICATED DUE TO >10 EPITHELIAL CELLS PRESENT ON MICROSCOPIC EXAM. POSSIBLE SPECIMEN CONTAMINATION. CULTURE NOT INDICATED DUE TO >10 EPITHELIAL CELLS PRESENT ON MICROSCOPIC EXAM. POSSIBLE SPECIMEN CONTAMINATION. /hpf Ua Micro: Bacteria 3+ /hpf Impression: Newly diagnosis metaplastic carcinoma with chondroid, sarcomatoid, osteoid differentiation per ultrasound-guided biopsy of right breast done on October 27, 2020 Subsequently underwent lumpectomy with right axillary sentinel lymph node biopsy on December 04, 2020 which showed 2.4 cm, grade 3, metaplastic carcinoma with clear surgical margins, 0 out of 5 sentinel lymph nodes showed metastatic disease., T2, N0, grade 3, ER/LA weakly positive, HER-2/tony positive, stage Ib ER/LA weakly positive at 60% / 55% HER-2/tony positive IHC 3+, and HER-2/tony overexpression and gene over amplification 2. Invasive mammary carcinoma with focal lobular features, grade 2 per ultrasound-guided left breast biopsy done on 10/17/2019 status post lumpectomy Done on 12/06/2019 showed 2.5 cm invasive lobular carcinoma with clear surgical margins T2, 3 sentinel lymph nodes were examined showed no evidence of metastatic disease N0 stage IIa ER 91% positive, LA 89% positive, HER-2/tony negative. Oncotype DX score was 14, low risk, risk of distant recurrence is about 4% with aromatase inhibitor and no significant benefit from chemotherapy Started on Arimidex 1 mg p.o. daily for 5 years along with vitamin D and calcium supplement on March 18, 2020 status post postlumpectomy radiation therapy started on February 25, 2020 and completed on March 24, 2020 Arimidex discontinued on January 05, 2021, as patient was advised to start systemic chemotherapy for newly diagnosed HER-2/tony positive right breast cancer with weakly ER/LA positive disease Ultrasound left breast done on 09/21/2019 showed 1.3 x 0.9 x 1.4 cm mass at 2:00 position left breast. Plan/Problems Addressed at this Visit: PROBLEMS ADDRESSED TODAY 1. Metaplastic carcinoma with chondroid, sarcomatoid, osteoid differentiation of the right breast ER/LA positive HER-2/tony positive stage Ib diagnosed November 2020. Martin Mrs. Shipley has been offered adjuvant chemotherapy with carboplatin Taxotere and Herceptin every 3 weeks. The Herceptin will be for total of a year. (Adriamycin/Cytoxan was not considered as she has had radiation to the left breast and concerns for increased risk for potential cardiotoxicity). After completion of 6 cycles of the carboplatin Taxotere she will be referred to radiation oncology for postlumpectomy radiation. She also plan to resume aromatase inhibitor therapy. She will need that for a minimum of 5 years however she did have development of a right breast cancer while on aromatase inhibitor for the left breast cancer diagnosed in September 2019. B. We will recommend aggressive antiemetics due to her regimen. She will have Compazine and Ativan as needed for antiemetics at home. We may add Zofran if needed. C. She has had baseline echocardiogram further Herceptin which reported LVEF of 70% on December 01, 2020. She underwent placement of a right internal jugular vein Port-A-Cath December 04, [address] Gong. [place]. Today's labs reviewed in detail discussed with Mrs. Shipley and a copy was given to her. WBC 17.9, hemoglobin 11.7, platelets 456,000 and ANC is 16,000 630. Potassium 4.7 creatinine 0.7 alk phos is 144 presumably due to Neupogen. Remaining LFTs are normal. E. WE WILL HOLD HER PLANNED CHEMOTHERAPY DOSE TODAY. She has persistent diarrhea and UTI symptoms. F. We have asked for stool culture and was started on Cipro 500 mg twice daily and she has been instructed to use [id number] Imodium for diarrhea. She is currently not been use anything to help slow the diarrhea down. 2. Follow-up plan A. Mrs. Shipley will return in 1 week with CBC CMP for Consideration of cycle 2 docetaxel carboplatin Herceptin.. B. She will have weekly interim CBC CMP for chemotherapy monitoring. C. She will require weekly port maintenance with lab draws or other access to her port. D. Her current plan is for 6 cycles of carboplatin Taxotere and Herceptin. Herceptin will then continue for total of 52 weeks from her start date. E. Her last echocardiogram for LVEF monitoring was December 01, 2020 and her LVEF was reported at an estimated 70% at that time. F. Mrs. Shipley was instructed to contact us in the interim should questions or problems arise. Signed By: Tanisha Mason-, AOCNP Roosevelt Roberts MD <<Signature on File>>
== END 2021-02-02 05:53 | disposition home or self-care (01) ==
LOC: ONCMED 05:53
PROVIDERS: PCP Family Medicine; Visit Provider Nurse Practitioner
DX: C50.211 Malignant neoplasm of upper-inner quadrant of right female breast (principal); C50.412 Malignant neoplasm of upper-outer quadrant of left female breast; Z17.0 Estrogen receptor positive status [ER+]; F32.9 Major depressive disorder, single episode, unspecified; E78.00 Pure hypercholesterolemia, unspecified; E03.9 Hypothyroidism, unspecified; Z79.899 Other long term (current) drug therapy
CPT/HCPCS: 36593; 80053; 81001; 85025; 96374; 99214; J2997

== ENCOUNTER 2021-02-13 06:00 | Outpatient (RCR) | payer OTHER, SELFPAY | END 2021-02-16 23:59 | disposition home or self-care (01) | LOC: ONCMED 06:00 | PROVIDERS: PCP Family Medicine; Visit Provider Internal Medicine Hematology & Oncology | DX: C50.412 Malignant neoplasm of upper-outer quadrant of left female breast (principal); Z17.0 Estrogen receptor positive status [ER+]; Z79.899 Other long term (current) drug therapy | CPT/HCPCS: 96361; 96372; 96374; 96375 ==

== ENCOUNTER 2021-02-13 08:40 | Outpatient (RCR) | payer OTHER, SELFPAY ==
[2021-02-09 13:25] LABS: Basophils % 0.6 %; Eosinophils % 0.3 %; Hematocrit 38.8 % (37.0-47.0); Hemoglobin 12.5 g/dL (11.5-15.3); Lymphocytes # 0.5 10^3/uL (0.8-4.8); Lymphocytes % 14.6 %; Mean Corpuscular HGB Conc 32.2 g/dL (30.0-36.0); Mean Corpuscular Hemoglobin 30.9 pg (28.0-34.0); Monocytes # 0.1 10^3/uL (0.2-0.9); Monocytes % 2.7 %; Neutrophils # 2.66 10^3/uL (1.8-7.7); Neutrophils % 81.2 %; Nucleated Red Blood Cells % 0 %; Platelet Count 334 10^3/cmm (130-400); Red Blood Count 4.04 10^6/uL (4.1-5.3); Red Cell Distribution Width 14.9 % (12.1-15.1); White Blood Count 3.3 10^3/uL (4.0-10.0)
[2021-02-09 14:15] LABS: Alanine Aminotransferase 36 U/L (0-33); Alkaline Phosphatase 132 IU/L (35-105); Anion Gap 18.5 (5-19); Aspartate Amino Transferase 29 U/L (0-32); Blood Urea Nitrogen 10 mg/dL (8-23); Calcium 8.9 mg/dL (8.5-10.5); Carbon Dioxide 21 mmol/L (22-29); Chloride 99 mmol/L (98-107); Globulin 3.4 g/dL (1.3-4.6); Glomerular Filtration Rate 72.4 mL/min (90-130); Glucose 169 mg/dL (65-115); Osmolality Calculated 281 mOsm/kg (285-295); Potassium 4.5 mmol/L (3.5-5.1); Sodium 134 mmol/L (136-145); Total Bilirubin 0.2 mg/dL (0.15-1.2); Total Protein 7.4 g/dL (6.6-8.7)
--- NOTE | 2021-02-10 09:20 | ONC FU_ITS ---
Dr. Roberts follow up note Patient: Gisel Shipley Unit #: [id number]: [id number] Dicatated By: Roosevelt Roberts M.D.Date of Visit:February 10, 2021 Onc Med Follow-up/Prog Note History of Present Illness: Mrs. Shipley is a 65-year-old female with a history of right breast lumpectomy at age 18. She reports that since that lumpectomy at age 18 she has done self breast exams and follow-up mammography when age-appropriate. She states recently she noticed a mass in her LEFT breast and underwent mammography on September 21, 2019. The mammography did show the left breast is composed of heterogenous fibroglandular density tissue, asymmetric breast tissue left greater than right, upper outer quadrant was unchanged. There were no definite mammographaphic abnormalities identified at the palpable marker. Subsequently she underwent ultrasound of the left breast at the 1:48 PM position. A hypoechoic shadowing lesion at 2 PM position 4 cm from the nipple was suspicious for neoplasm. It measured 1.3 x 0.9 x 1.4 cm. Mrs. Shipley then underwent ultrasound of the guided left breast biopsy on October 17, 2019. This did show invasive mammary carcinoma with focal lobular features, grade 2, tumor involves all 5 cores taken. Prognostic profiling showed ER/ME strongly positive, HER-2/tony plus but negative for HER-2/tony overexpression by IHC and over amplification by FISH. Ki-67 was 36% which is high and unfavorable. She underwent left breast lumpectomy with sentinel lymph node biopsy on December 06, [address] Gong. The final pathology report showed a 2.5 cm invasive lobular carcinoma with clear surgical margins, T2 and 3 sentinel lymph nodes were examined which showed no evidence of metastatic disease???N0. Mrs. Shipley was started on Arimidex 1 mg daily with vitamin D and calcium supplementation on January 17, 2020. Her Oncotype DX score from January 20, 2020 show recurrence score 14???low; risk of distant recurrence with aromatase inhibitor was about 4% and average absolute chemotherapy benefit was less than 1%. She did undergo postlumpectomy radiation therapy to the LEFT breast from February 25, 2020 to March 24, 2020. She received a total dose of 42.56 José in 16 fractions followed by lumpectomy cavity boost of 10 José in 4 fractions. She has no family history of breast cancer and no history of hormonal supplementation. Mrs. Shipley underwent follow-up mammography/ultrasound on October 02, 2020. It did report a 1.7 x 1.2 x 0.9 cm mass in the RIGHT breast at the 3 o'clock position. On October 27, 2020 she underwent ultrasound-guided right breast biopsy. 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 HER-2/tony positive IHC 3+ positive for HER-2/tony overexpression. She underwent RIGHT breast lumpectomy with sentinel lymph node dissection on December 04, 2020. 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 pT2, pN0, grade 3, ER/ME weakly positive, HER-2/tony positive???stage Ib per Dr. Roberts's office note on January 05, 2021. discussed with Mrs. Shipley treatment options for her grade 3 HER-2/tony positive ER ME positive RIGHT breast cancer to include systemic chemotherapy with Herceptin along with chemotherapy agents including Adriamycin Cytoxan followed by Taxol plus Herceptin, Cytoxan/Taxotere and Herceptin or carboplatin Taxotere Herceptin. She is high risk for recurrence based on the grade 3 disease and the tumor size of more than 2 cm. Her ER/ME is weakly positive. She did develop the RIGHT breast cancer while on Arimidex for treatment of her LEFT breast cancer. She has a history of radiation to the LEFT breast so there is concern of risk of cardiomyopathy with chemo treatment related cardiotoxicity. Adriamycin will not be considered at this time. She has been advised to pursue treatment with carboplatin Taxotere along with Herceptin for 6 treatments followed by Herceptin for a total of 52 weeks along with hormonal therapy for 5 years. She will also be referred to radiation oncology for postlumpectomy radiation therapy. Mrs. Shipley begin her first cycle of carboplatin with AUC of 6 and Taxotere 75 mg per metered squared every 3 weeks along with Herceptin for total of 6 cycles On January 12, 2021 After completion she will continue Herceptin for a total of a year. She did have baseline echocardiogram on 12/01/2020 which reported her left ventricular ejection fraction estimated at 70%. We will plan for echocardiogram limited views for LVEF monitoring every 3 months while she is on Herceptin. Came for follow-up, denies any specific complaint, no fever chills, no nausea vomiting, no dysuria or hematuria, no abdominal pain, no mouth sores as per patient over the last chemotherapy, she end up in the hospital with urosepsis and severe neutropenia she was treated with broad-spectrum antibiotics, colony-stimulating factors and IV fluids she recovered well but after discharge she had evidence of fluid retention, as per patient responded very well to watermelon which caused diuresis. Medications: Anastrozole 1 Tablet (of 1 mg) Oral daily, Aspirin Adult 1 Tablet (of 325 mg) Oral daily, Calcium + D 2 Tablet (of 600 mg) Oral daily, Doxepin HCl 1 Capsule (of 100 mg) Capsule Oral at bedtime, Levothyroxine Sodium 1 Tablet (of 100 mcg) Oral daily, Probiotic 1 Capsule Oral daily Allergies: Aleve Review of Systems: Review of Systems is not available for this patient. Vital Signs: Performed on February 10, 2021 08:09 Height - 64.00 in Weight - 237.6 lbs (LOW) BSA - 2.10 sq.m BMI - 40.78 (HIGH) Temperature - 97.7 F (LOW) Pulse - 83 /min Respiration - 18 /min BP - 125/58 mm(hg) O2 Sat - 98 % Pain - 0 Fatigue - 6 Performance Status: 0 - Fully active, able to carry on all predisease activities without restrictions. (ECOG) Physical Examination: Respiratory - Lungs are clear to auscultation, Cardiovascular - Regular rate and rhythm of heart, Gastrointestinal - Soft, bowel sounds present, Extremities - No visible edema or rash. Lab/Imaging: Test performed on February 09, 2021 13:05 WBC 3.3 10 3/uL RBC 4.04 10 6/uL HGB 12.5 g/dL HCT 38.8 % MCV 96.0 fL MCH 30.9 pg MCHC 32.2 g/dL RDW 14.9 % Platelet Count 334 10 3/cmm MPV 9.0 fL Neutrophils 2.66 10 3/uL Lymphocytes 0.5 10 3/uL Monocytes 0.1 10 3/uL Eosinophils 0.0 10 3/uL Basophils 0.0 10 3/uL Neutrophil % 81.2 % Lymphocyte % 14.6 % Monocyte % 2.7 % Eosinophil % 0.3 % Basophils % 0.6 % NRBC % 0 % Test performed on February 09, 2021 13:03 Sodium 134 mmol/L Potassium 4.5 mmol/L Chloride 99 mmol/L CO2 21 mmol/L Anion Gap 18.5 BUN 10 mg/dL Creatinine 0.8 mg/dL Cr Clearance (Est) 125.8700 mL/min eGFR 72.4 mL/min Glucose 169 mg/dL Osmolality - Calculated 281 mOsm/kg Calcium 8.9 mg/dL Protein, Total 7.4 g/dL Albumin 4.0 g/dL Globulin 3.4 g/dL Bilirubin, Total 0.2 mg/dL ALT (SGPT) 36 U/L AST (SGOT) 29 U/L Alkaline Phosphatase 132 IU/L Test performed on February 02, 2021 08:45 Ua Color Yellow Ua Appearance SL Hazy Ua Glucose Norm Ua Bilirubin Neg Ua Ketones Negative Ua Specific [place] 1.020 Ua Blood 2+ Ua pH 5 Ua Protein Neg Ua Nitrites Negative Ua Leukocyte Esterase 1+ Ua Micro: WBC 5-10 /hpf Ua Micro: RBC RARE /hpf Ua Micro: Squam Epith Cells 15-25 CULTURE NOT INDICATED DUE TO >10 EPITHELIAL CELLS PRESENT ON MICROSCOPIC EXAM. POSSIBLE SPECIMEN CONTAMINATION. CULTURE NOT INDICATED DUE TO >10 EPITHELIAL CELLS PRESENT ON MICROSCOPIC EXAM. POSSIBLE SPECIMEN CONTAMINATION. /hpf Ua Micro: Bacteria 3+ /hpf Impression: Newly diagnosis metaplastic carcinoma with chondroid, sarcomatoid, osteoid differentiation per ultrasound-guided biopsy of right breast done on October 27, 2020 Subsequently underwent lumpectomy with right axillary sentinel lymph node biopsy on December 04, 2020 which showed 2.4 cm, grade 3, metaplastic carcinoma with clear surgical margins, 0 out of 5 sentinel lymph nodes showed metastatic disease., T2, N0, grade 3, ER/ME weakly positive, HER-2/tony positive, stage Ib ER/ME weakly positive at 60% / 55% HER-2/tony positive IHC 3+, and HER-2/tony overexpression and gene over amplification 2. Invasive mammary carcinoma with focal lobular features, grade 2 per ultrasound-guided left breast biopsy done on 10/17/2019 status post lumpectomy Done on 12/06/2019 showed 2.5 cm invasive lobular carcinoma with clear surgical margins T2, 3 sentinel lymph nodes were examined showed no evidence of metastatic disease N0 stage IIa ER 91% positive, ME 89% positive, HER-2/tony negative. Oncotype DX score was 14, low risk, risk of distant recurrence is about 4% with aromatase inhibitor and no significant benefit from chemotherapy Started on Arimidex 1 mg p.o. daily for 5 years along with vitamin D and calcium supplement on March 18, 2020 status post postlumpectomy radiation therapy started on February 25, 2020 and completed on March 24, 2020 Arimidex discontinued on January 05, 2021, as patient was advised to start systemic chemotherapy for newly diagnosed HER-2/tony positive right breast cancer with weakly ER/ME positive disease Ultrasound left breast done on 09/21/2019 showed 1.3 x 0.9 x 1.4 cm mass at 2:00 position left breast. Plan: Discussed with patient regarding her labs white blood count 3.3 hemoglobin 12.6 hematocrit 38.8 platelets 334,000 ANC 2660 CMP within normal limits Clinically, patient is doing well, will consider next cycle adjuvant chemotherapy with carboplatin/docetaxel/Herceptin but because of significant toxicity after last chemo therapy, we will reduce carboplatin dose to 750 mg and also consider Neulasta to prevent chemotherapy-induced neutropenia. And proceed with second cycle of chemotherapy with carboplatin/Taxotere/Herceptin We will also consider urinalysis as last time patient had asymptomatic urine tract infection which flared up due to progressive chemotherapy induced neutropenia. And monitor her closely, patient will return to clinic in 1 week with CBC CMP . Signed By: Roosevelt Roberts M.D. <<Signature on File>>
[2021-02-10] MEDS: acetaminophen 325 mg Tablet 650 MG PO (09:44)
[2021-02-10] MEDS: famotidine 20 mg/2 mL INJ IVP (09:44)
[2021-02-10] MEDS: sodium chloride 0.9% 250 ML 75 ML IV (09:44)
[2021-02-10] MEDS: diphenhydrAMINE 50 mg/mL SDV 1mL 25 MG IVP (09:46)
[2021-02-10] MEDS: palonosetron 0.25 mg/5 mL SDV IVP (09:51)
[2021-02-10] MEDS: fosaprepitant 150 MG in sodium chloride 0.9% 150 ML 300 MG IV (10:10)
[2021-02-13] MEDS: sodium chloride 0.9% 1,000 ML 999 ML IV (09:00)
[2021-02-13] MEDS: famotidine 20 mg/2 mL INJ IVP (09:25)
[2021-02-13] MEDS: ondansetron 2 mg/ML SDV 2 mL 8 MG IV (09:40)
== END 2021-02-13 23:59 | disposition home or self-care (01) ==
LOC: ONCMED 08:40
PROVIDERS: PCP Family Medicine; Visit Provider Internal Medicine Hematology & Oncology
DX: Z51.12 Encounter for antineoplastic immunotherapy (principal); Z51.11 Encounter for antineoplastic chemotherapy; C50.211 Malignant neoplasm of upper-inner quadrant of right female breast; C50.412 Malignant neoplasm of upper-outer quadrant of left female breast; Z17.0 Estrogen receptor positive status [ER+]; F32.9 Major depressive disorder, single episode, unspecified; E78.00 Pure hypercholesterolemia, unspecified; E03.9 Hypothyroidism, unspecified; Z79.899 Other long term (current) drug therapy
CPT/HCPCS: 36591; 80053; 85025; 96367; 96375; 96413; 96417; 99215; J1100; J1200; J1453; J2405; J2469; J2505; J3490; J7030; J7040; J7050; J9045; J9171; Q5112

== ENCOUNTER 2021-02-14 10:00 | Inpatient (IN) | payer OTHER, SELFPAY ==
[2021-02-14] VITALS (34 sets, daily range): BP systolic 116–156; BP diastolic 61–88; PULSE 83–107; RESP 13–27; TEMP 36.4–36.9; O2SAT 81–93; BMI 23.0
--- NOTE | 2021-02-14 10:38 | XRR_ITS ---
PROCEDURE INFORMATION: Exam: XR Chest Exam date and time: 02/14/2021 10:40 AM Age: 65 years old Clinical indication: Cough and dyspnea; Additional info: Dyspnea/cough TECHNIQUE: Imaging protocol: XR of the chest. Views: 1 view. COMPARISON: CR XR chest 1V portable [id number] 01/19/2021 6:18 AM FINDINGS: Lungs: There are extensive bilateral pulmonary infiltrates especially on the left side which have developed since the previous radiograph. Findings are consistent with bilateral pneumonia. Pleural spaces: Unremarkable. No pleural effusion. No pneumothorax. Heart/Mediastinum: Unremarkable. No cardiomegaly. Vasculature: A MediPort catheter is present with tip projecting near the junction of the SVC and right atrium. Bones/joints: Unremarkable. XR/XR chest 1V portable [id number] IMPRESSION: The patient has developed extensive bilateral pulmonary infiltrates especially in the left lung. The findings are consistent with bilateral pneumonia.
--- NOTE | 2021-02-14 10:39 | ECG_ITS ---
[facility] Test Date: 2021-02-14 Pat Name: Gisel Shipley Department: Room: Gender: Female Piping Blocker: : 1955 Requested By: Alberto Patel Order Number: [id number] Michaela MD: Henok Kyle M.D. Measurements Intervals Roosevelt Rate: 92 P: 27 NM: 150 QRS: -1 QRSD: 90 T: 12 QT: 306 QTc: 379 Interpretive Statements SINUS RHYTHM LOW QRS VOLTAGE IN PRECORDIAL LEADS [QRS DEFLECTION < 1.0 mV IN CHEST LEADS] Compared to ECG 03/14/2017 08:44:30 Low QRS voltage now present Left-axis deviation no longer present Electronically Signed On 02-15-2021 16:02:45 CDT by Henok Kyle M.D. [email or web address]
--- NOTE | 2021-02-14 10:40 | ED_ITS ---
HPI - Weakness General: Chief complaint: Infusion: Covid MCA Stated complaint: CHEMO PT WEAKNESS AND HURTING ALL OVER Time Seen by Provider: 02/14/21 10:03 History of Present Illness: HPI Narrative: 65-year-old female presents to the emergency room with complaint of generally not feeling well and being short of breath. Patient has a known diagnosis of breast cancer. Talking to her she was diagnosed a year ago with breast cancer they did a lumpectomy and radiation and then on follow-up they found a second lump both were in the right breast. There is no metastasis upon the beyond the original site. She had a lumpectomy earlier this year and is now undergoing chemo. Last week she received her second round of chemo and has not been feeling well she denies a fever on arrival here she was hypoxic and required 8 L by nasal cannula. She was given Neulasta earlier this week presumably for neutropenia. She reports generalized myalgias some chills but no recorded fever. She denies dysuria urgency frequency denies chest pain or abdominal pain. MD Complaint: generalized weakness Onset (ago): day(s) Duration: constant Location: generalized Severity: moderate Relieving factors: none Exacerbating factors: none Associated symptoms: Reports chills, decreased appetite, myalgias and nausea; Denies chest pain, confusion, melena, diaphoresis, dysuria, easy bruising, fever(s), headache(s), rash, short of breath, syncope or vomiting Review of Systems Const: Reports: chills; Denies: fever(s) or diaphoresis ENMT: Denies: throat pain, ear or mastoid pain, nasal discharge or nasal congestion Card: Denies: chest pain or syncope Resp: Denies: dyspnea, productive cough or non-productive cough GI: Reports: nausea; Denies: vomiting or melena : Denies: dysuria Skin/Breast: Denies: rash or pruritus Neuro: Denies: headache(s) or confusion Ankit/Lymph: Denies: easy bruising PFSH ED PFSH: Medical History Breast cancer Depression Hypothyroidism Insomnia Surgical History H/O total knee replacement H/O tubal ligation History of cholecystectomy History of lumpectomy Family History Other Dementia Social History Quit status (tobacco): has quit using tobacco Smoking risk assessment/counseling performed?: No Alcohol intake: never Physical Exam Const: COMMON NORMALS: no acute distress GENERAL APPEARANCE: cooperative and comfortable ORIENTATION/CONSCIOUSNESS: Yes awake, Yes oriented to person, Yes oriented to place and Yes oriented to time HENMT: COMMON NORMALS: normocephalic, atraumatic and hearing grossly normal bilaterally HEAD & SCALP: normocephalic and atraumatic Neck/C-Spine: COMMON NORMALS: no JVD Resp: AUSCULTATION: rhonchi throughout and wheezes expiratory wheezes and throughout Cardio: COMMON NORMALS: no JVD, regular rate, regular rhythm and No murmurs present (Cardio) RATE: regular rate RHYTHM: regular rhythm GI: COMMON NORMALS: Soft to palpation and No hepatosplenomegaly present AUSCULTATION: Yes normoactive bowel sounds PALPATION: Yes Soft to palpation, No Tenderness to palpation present (GI), No Guarding due to palpation present (GI) and Yes No hepatosplenomegaly present Extremity: COMMON NORMALS: normal to inspection, capillary refill normal, no clubbing, cyanosis or edema, no calf tenderness and no pedal edema Neuro: SENSORIUM/ORIENTATION: Yes oriented to person, Yes oriented to place and Yes oriented to time Skin: COMMON NORMALS: no rashes or lesions noted GENERAL SKIN EXAM: no rashes or lesions noted Course Vital Signs: Vital signs: Vital Signs Temperature 97.8 F 02/14/21 10:03 Pulse Rate 101 H 02/14/21 12:49 Respiratory Rate 20 H 02/14/21 12:49 Blood Pressure 144/68 02/14/21 12:49 Pulse Oximetry 87 L 02/14/21 12:49 MDM - Weakness MDM Narrative: Medical decision making narrative: Chest x-ray classic for Covid pneumonitis rapid antigen positive. Gloria started on remdesivir dexamethasone I also am going to start her on Levaquin for secondary infection because of her recent neutropenia. Her blood count has improved with the Neupogen she received earlier this week. Discussed the results with her also discussed Dr. Woods orders have been written will admit her to the ICU she has been on humidified high flow oxygen here in the emergency room. Lab Data: Labs: Lab Results 02/14/21 02/14/21 02/14/21 Range/Units 10:35 11:01 11:01 WBC 2.8 L (4.0-10.0) 10^3/ uL RBC 3.82 L (4.1-5.3) 10^6/u L Hgb 12.1 (11.5-15.3) g/dL Hct 36.9 L (37.0-47.0) % MCV 96.6 (81-99) fL MCH 31.7 (28.0-34.0) pg MCHC 32.8 (30.0-36.0) g/dL RDW 15.0 (12.1-15.1) % Plt Count 135 (130-400) 10^3/c mm MPV 10.3 (7.4-10.4) fL Neut % (Auto) 93.9 % Lymph % (Auto) 5.7 % Morehouse % (Auto) 0.4 % Eos % (Auto) 0.0 % Baso % (Auto) 0.0 % Neut # (Auto) 1.98 (1.8-7.7) 10^3/u L Lymph # (Auto) 0.2 L (0.8-4.8) 10^3/u L Morehouse # (Auto) 0.0 L (0.2-0.9) 10^3/u L Eos # (Auto) 0.0 (0.0-0.8) 10^3/u L Baso # (Auto) 0.0 (0.0-0.1) 10^3/u L Nucleated RBC % (a uto) 0 % Nucleated RBCs # 0.0 /100WBC Specimen Type Arterial Sample Site Radial, left ABG pH 7.45 (7.35-7.45) ABG pCO2 38.7 (35-45) mmHg ABG pO2 51.6 L (80.0-100.0) mmH g ABG HCO3 26.8 H (22-26) mmol/L ABG O2 Saturation 87.3 ABG Base Excess 2.7 H (-2.0-2.0) mmol/ L Vince Test Pos A-a O2 Gradient 6.7 (5-10) mmHg Hematocrit 37.9 (37-47) % Hgb O2 Saturation 85.6 L (95-100) % Carboxyhemoglobin 1.2 (0.4-20.1) %THgb Methemoglobin 0.7 (0.4-1.5) % Total Hemoglobin 12.4 (12-16) g/dL Sodium 135.0 135 L (131-143) mmol/L Potassium 3.9 4.0 (3.5-5.0) mmol/L Glucose 112.0 105 (70-115) mg/dL Ionized Calcium 1.3 (1.1-1.4) mmol/L O2 Delivery Device Nc O2 Liters/Min 8.0 % Food Beverage Manager ID Cak Chloride 98 (98-107) mmol/L Carbon Dioxide 26 (22-29) mmol/L Anion Gap 15.0 (5-19) BUN 13 (8-23) mg/dL Creatinine 0.7 (0.5-0.9) mg/dL GFR Calculation 84.5 L (90-130) mL/min Calculated Osmolal ity 280 L (285-295) mOsm/k g Lactic Acid (0.5-2.2) mmol/L Calcium 8.7 (8.5-10.5) mg/dL Magnesium 2.0 (1.7-2.3) mg/dL Total Bilirubin 0.4 (0.15-1.2) mg/dL AST 48 H (0-32) U/L ALT 30 (0-33) U/L Alkaline Phosphata se 98 (35-105) IU/L Creatine Kinase 75 (26-192) U/L Total Protein 6.4 L (6.6-8.7) g/dL Albumin 3.5 (3.5-5.2) g/dL Globulin 2.9 (1.3-4.6) g/dL Urine Color (Yellow) Urine Appearance (CLEAR) Urine pH (5-7) Ur Specific Gravit y (1.005-1.030) Urine Protein (Negative) Urine Glucose (UA) (Normal) Urine Ketones (Negative) Urine Blood (Negative) Urine Nitrate (Negative) Urine Bilirubin (Negative) Urine Urobilinogen (Negative) mg/dL Ur Leukocyte Rubina ase (Negative) Urine RBC (0-2) /hpf Urine WBC (0-5) /hpf Ur Squamous Epith Cells (0-5) /hpf Ur Transition Epit h Cell /hpf Amorphous Sediment Urine Bacteria (NONE) /hpf Urine Mucus /hpf SARS-CoV-2 Ag (Rap id) (Negative) 02/14/21 02/14/21 02/14/21 Range/Units 11:01 11:07 12:07 WBC (4.0-10.0) 10^3/ uL RBC (4.1-5.3) 10^6/u L Hgb (11.5-15.3) g/dL Hct (37.0-47.0) % MCV (81-99) fL MCH (28.0-34.0) pg MCHC (30.0-36.0) g/dL RDW (12.1-15.1) % Plt Count (130-400) 10^3/c mm MPV (7.4-10.4) fL Neut % (Auto) % Lymph % (Auto) % Morehouse % (Auto) % Eos % (Auto) % Baso % (Auto) % Neut # (Auto) (1.8-7.7) 10^3/u L Lymph # (Auto) (0.8-4.8) 10^3/u L Morehouse # (Auto) (0.2-0.9) 10^3/u L Eos # (Auto) (0.0-0.8) 10^3/u L Baso # (Auto) (0.0-0.1) 10^3/u L Nucleated RBC % (a uto) % Nucleated RBCs # /100WBC Specimen Type Sample Site ABG pH (7.35-7.45) ABG pCO2 (35-45) mmHg ABG pO2 (80.0-100.0) mmH g ABG HCO3 (22-26) mmol/L ABG O2 Saturation ABG Base Excess (-2.0-2.0) mmol/ L Vince Test A-a O2 Gradient (5-10) mmHg Hematocrit (37-47) % Hgb O2 Saturation (95-100) % Carboxyhemoglobin (0.4-20.1) %THgb Methemoglobin (0.4-1.5) % Total Hemoglobin (12-16) g/dL Sodium (131-143) mmol/L Potassium (3.5-5.0) mmol/L Glucose (70-115) mg/dL Ionized Calcium (1.1-1.4) mmol/L O2 Delivery Device O2 Liters/Min % Food Beverage Manager ID Chloride (98-107) mmol/L Carbon Dioxide (22-29) mmol/L Anion Gap (5-19) BUN (8-23) mg/dL Creatinine (0.5-0.9) mg/dL GFR Calculation (90-130) mL/min Calculated Osmolal ity (285-295) mOsm/k g Lactic Acid 1.2 (0.5-2.2) mmol/L Calcium (8.5-10.5) mg/dL Magnesium (1.7-2.3) mg/dL Total Bilirubin (0.15-1.2) mg/dL AST (0-32) U/L ALT (0-33) U/L Alkaline Phosphata se (35-105) IU/L Creatine Kinase (26-192) U/L Total Protein (6.6-8.7) g/dL Albumin (3.5-5.2) g/dL Globulin (1.3-4.6) g/dL Urine Color Yellow (Yellow) Urine Appearance Sl hazy (CLEAR) Urine pH 6 (5-7) Ur Specific Gravit y 1.020 (1.005-1.030) Urine Protein 1+ H (Negative) Urine Glucose (UA) Norm (Normal) Urine Ketones Negative (Negative) Urine Blood 2+ H (Negative) Urine Nitrate Negative (Negative) Urine Bilirubin Neg (Negative) Urine Urobilinogen 1 H (Negative) mg/dL Ur Leukocyte Rubina ase Negative (Negative) Urine RBC 5-10 H (0-2) /hpf Urine WBC 5-10 H (0-5) /hpf Ur Squamous Epith Cells 25-40 H (0-5) /hpf Ur Transition Epit h Cell 0-4 /hpf Amorphous Sediment Not Reportable Urine Bacteria 2+ H (NONE) /hpf Urine Mucus 1+ /hpf SARS-CoV-2 Ag (Rap id) Positive H (Negative) Discharge Plan Discharge Patient Disposition: Admitted As Inpatient Admit Provider: Demetri Woods Clinical Impression: Pneumonia due to COVID-19 virus, Breast CA, Acute hypoxemic respiratory failure Condition: Stable Coding Level of Care Code ED Rental Car Porter for Chg Fwd Exam Comprehensive
[2021-02-14 10:46] LABS: ABG PCO2 38.7 mmHg (35-45); ABG PH Result 7.45 (7.35-7.45); Alveolar-Arterial Oxygen Gradi 6.7 mmHg (5-10); Arterial Blood Gas Hematocrit 37.9 % (37-47); Base Excess ABG 2.7 mmol/L (-2.0-2.0); Blood Gas Allen Test Pos; Blood Gas Operator Identificat CAK; Blood Gas Sample Site Radial, left; Blood Gas Sample Type Arterial; Carboxyhemoglobin 1.2 %THgb (0.4-20.1); HCO3 ABG 26.8 mmol/L (22-26); HGB O2 Sat 85.6 % (95-100); Ionized Calcium Level - ABG 1.3 mmol/L (1.1-1.4); Methemoglobin 0.7 % (0.4-1.5); Oxygen Device NC; Oxygen Saturation ABG 87.3; PO2 ABG 51.6 mmHg (80.0-100.0); Potassium Level - ABG 3.9 mmol/L (3.5-5.0); Total Hemoglobin 12.4 g/dL (12-16)
[2021-02-14] MEDS: ondansetron 2 mg/ML SDV 2 mL 4 MG IVP ×2 (11:01→20:13)
[2021-02-14] MEDS: sodium chloride 0.9% 1,000 ML 999 ML IV (11:01)
[2021-02-14 11:10] LABS: Hematocrit 36.9 % (37.0-47.0); Hemoglobin 12.1 g/dL (11.5-15.3); Lymphocytes # 0.2 10^3/uL (0.8-4.8); Lymphocytes % 5.7 %; Mean Corpuscular HGB Conc 32.8 g/dL (30.0-36.0); Mean Corpuscular Hemoglobin 31.7 pg (28.0-34.0); Mean Corpuscular Volume 96.6 fL (81-99); Mean Platelet Volume 10.3 fL (7.4-10.4); Monocytes % 0.4 %; Neutrophils # 1.98 10^3/uL (1.8-7.7); Nucleated Red Blood Cells % 0 %; Platelet Count 135 10^3/cmm (130-400); Red Blood Count 3.82 10^6/uL (4.1-5.3); White Blood Count 2.8 10^3/uL (4.0-10.0)
[2021-02-14 11:36] LABS: Alanine Aminotransferase 30 U/L (0-33); Albumin Level 3.5 g/dL (3.5-5.2); Alkaline Phosphatase 98 IU/L (35-105); Aspartate Amino Transferase 48 U/L (0-32); Blood Urea Nitrogen 13 mg/dL (8-23); Calcium 8.7 mg/dL (8.5-10.5); Carbon Dioxide 26 mmol/L (22-29); Chloride 98 mmol/L (98-107); Creatine Phosphokinase 75 U/L (26-192); Globulin 2.9 g/dL (1.3-4.6); Glomerular Filtration Rate 84.5 mL/min (90-130); Glucose 105 mg/dL (65-115); Lactic Sepsis W/Reflex 1.2 mmol/L (0.5-2.2); Osmolality Calculated 280 mOsm/kg (285-295); Sodium 135 mmol/L (136-145); Total Bilirubin 0.4 mg/dL (0.15-1.2); Total Protein 6.4 g/dL (6.6-8.7)
[2021-02-14 11:41] LABS: Slide Review Slide Review Perform
[2021-02-14 11:42] LABS: SARS Covid-2 Antigen Positive (Negative)
[2021-02-14 11:43] LABS: Neutrophils % 93.9 %
[2021-02-14] MEDS: remdesivir 200 MG in sodium chloride 0.9% (100 ml) 100 ML 100 MG IV (12:34)
[2021-02-14] MEDS: dexamethasone 10 mg/mL INJ IM (12:39)
[2021-02-14 12:40] LABS: Add Urine Microscopic? YES; Bilirubin Urine Neg (Negative); Blood Urine 2+ (Negative); Glucose Urine UA Norm (Normal); Ketones Urine Negative (Negative); Leukocyte Esterase Urine Negative (Negative); Nitrate Urine Negative (Negative); Protein Urine 1+ (Negative); Urine Appearance SL Hazy (CLEAR); Urine Color Yellow (Yellow); Urobilinogen Urine 1 mg/dL (Negative); pH Urine 6 (5-7)
[2021-02-14 12:50] LABS: Bacteria Urine 2+ /hpf; Mucus Urine 1+ /hpf; Squamous Epithelial Cell Urine 25-40 /hpf (0-5); Transitional Epi Cells Urine 0-4 /hpf
[2021-02-14 12:51] LABS: Add Urine Culture? No
--- NOTE | 2021-02-14 13:10 | CTR_ITS ---
PROCEDURE INFORMATION: Exam: CTA Chest With Contrast Exam date and time: 02/14/2021 1:32 PM Age: 65 years old Clinical indication: Shortness of breath; Prior surgery; Surgery type: Port, lumpectomy; Patient HX: HX of brest cancer, currently undergoing chemotherapy; Additional info: Resp failure TECHNIQUE: Imaging protocol: Computed tomographic angiography of the chest with contrast. 3D rendering (Not supervised by radiologist): MIP and/or 3D reconstructed images were created by the technologist. Radiation optimization: All CT scans at this facility use at least one of these dose optimization techniques: automated exposure control; mA and/or kV adjustment per patient size (includes targeted exams where dose is matched to clinical indication); or iterative reconstruction. Contrast material: OMNIPAQUE 350; Contrast volume: 45 ml; Contrast route: INTRAVENOUS (IV); COMPARISON: CTA Chest w Abd/Pel w* 01/28/2016 2:44 PM RADIATION DOSE METRICS: Total DLP (mGy-cm): 468.23 FINDINGS: Tubes, catheters and devices: A MediPort catheter is present with the tip in the right atrium. Pulmonary arteries: Normal. No pulmonary emboli. Aorta: Unremarkable. No aortic aneurysm. No aortic dissection. Lungs: There are prominent extensive diffuse bilateral pulmonary infiltrates. This may be due to extensive bilateral pneumonia. Superimposed heart failure and pulmonary edema cannot be excluded but there are no significant effusions. Pleural spaces: No significant pleural effusion is seen. There is no pneumothorax. Heart: The heart is not significantly enlarged. Lymph nodes: Mildly prominent mediastinal and pulmonary hilar lymph nodes are present which are probably reactive in nature.. Liver: Fatty liver. Gallbladder and bile ducts: Cholecystectomy. Bones/joints: Degenerative changes are present in the spine with sclerosis and small osteophytes. Soft tissues: Unremarkable. CT/CT angio chest PE protcl [id number] IMPRESSION: 1. No evidence of pulmonary embolus or aortic aneurysm/dissection. 2. Prominent extensive diffuse bilateral pulmonary infiltrates most likely due to bilateral pneumonia. 3. Fatty liver. Radiation Dose CTDIVOL = (mGy): DLP = 468.23 (mGy-cm)
[2021-02-14] MEDS: levofloxacin-dextrose 5 % 750 MG/150 ML PREMIX 100 MG IV (13:13)
[2021-02-14] MEDS: iohexol 350 mg/mL 100 mL Btl IV (13:46)
--- NOTE | 2021-02-14 14:30 | PM.HP ---
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 HER-2/tony positive IHC 3+ positive for HER-2/tony overexpression) s/p RIGHT breast lumpectomy with sentinel lymph node dissection on December 04, 2020. 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 pT2, pN0, grade 3, ER/NV weakly positive, HER-2/tony positive???stage Ib. Currently on chemotherapy begin her first cycle of carboplatin with AUC of 6 and Taxotere 75 mg per metered squared every 3 weeks along with Herceptin for total of 6 cycles On January 12, 2021.Was admitted with chief complaint of post chemo generalized weakness, fatigue, poor appetite, shortness of breath, she denies fever, cough, nausea , vomiting, abdominal pain, diarrhea, urinary complaint. She was recently discharged from the hospital after being managed for urosepsis and severe neutropenia she was treated with broad-spectrum antibiotics, colony-stimulating factors. Upon arrival in the ER she was hypoxic and required 8 L by nasal cannula: Imaging studies: X-ray chest; diffuse bilateral infiltrates, prominent in the left lung. Findings consistent with pneumonia. CTA chest per PE protocol: No pulmonary embolism: Prominent extensive diffuse bilateral pulmonary infiltrates most likely due to bilateral pneumonia. Pertinent labs: WBC:2.8 H&H; 12/36, platelet count: 135 , rapid Covid antigen: Positive ABG; pH: 7.45, PO2:51, PCO2: 38: FiO2: On 8 L/min: P/F Review of Systems Const: Denies: fever(s), chills or body aches Card: Denies: palpitations, edema, swelling of feet/ankles or leg pain with exertion Resp: Denies: wheezing or pain on inspiration GI: Denies: abdominal pain, nausea, vomiting, diarrhea or constipation : Denies: flank pain Musc: Denies: back pain, extremity pain or extremity swelling Neuro: Denies: difficulty walking or confusion Medications/Allergies Home Medications Medication Instructions Recorded Confirmed Last Taken Type aspirin 325 mg PO BEDTIME 12/05/19 02/14/21 02/12/21 History doxepin 100 mg PO BEDTIME PRN 12/03/20 02/14/21 02/12/21 History hydrocodone-acetaminophen 1 - 2 tab PO Q5H PRN #30 tab 12/04/20 02/14/21 02/14/21 09:00 Rx dexamethasone 8 mg PO BID 01/19/21 02/14/21 02/11/21 History lorazepam 0.5 - 1 mg PO TID PRN 01/19/21 02/14/21 Unknown History prochlorperazine maleate 10 mg PO Q4H PRN 01/19/21 02/14/21 Unknown History Probiotic 1 cap PO DAILY 02/14/21 02/14/21 Unknown History acetaminophen [Tylenol Extra 1,000 mg PO PRN 02/14/21 02/14/21 02/13/21 History Strength] calcium carbonate-vitamin D3 1 tab PO QAM 02/14/21 02/14/21 Unknown History [Calcium + D] ciprofloxacin HCl 500 mg PO BID 02/14/21 02/14/21 02/13/21 History see pharmacy comment levothyroxine 125 mcg PO QAM 02/14/21 02/14/21 02/13/21 History Allergies Allergy/AdvReac Type Severity Reaction Status Date / Time naproxen [From Aleve] Allergy ADR-Itching Verified 02/14/21 11:53 silver Allergy ALGY-Rash Verified 02/14/21 11:53 [From Tegaderm AG Mesh] PFSH Acute PFSH: Medical History (Updated 02/14/21 @ 14:36 by Demetri Woods MD) Breast cancer Depression Hypothyroidism Insomnia Surgical History H/O total knee replacement H/O tubal ligation History of cholecystectomy History of lumpectomy Family History Other Dementia Social History Quit status (tobacco): has quit using tobacco Smoking risk assessment/counseling performed?: No Alcohol intake: never Vitals/I&O/Wt Last Vital Signs Temp 97.8 F 02/14/21 10:03 Pulse 105 H 02/14/21 14:15 Resp 22 H 02/14/21 14:15 BP 125/61 02/14/21 14:00 Pulse Ox 91 02/14/21 14:15 02/13/21 02/14/21 02/14/21 22:59 06:59 14:59 Intake Total 1100 / 1100 Balance 1100 / 1100 Weight last 48 hrs Weight 60.781 kg Physical Exam Const: COMMON NORMALS: patient oriented x3 HENMT: COMMON NORMALS: normocephalic and atraumatic HEAD & SCALP: normocephalic and atraumatic Resp: OTHER: Bilateral coarse breath sounds, with fine crackles Cardio: COMMON NORMALS: regular rate, regular rhythm, S1 normal heart sound present, S2 normal heart sound present, No gallops present (Cardio), No murmurs present (Cardio), No rub (Cardio) and Peripheral pulses 2+ throughout RATE: regular rate RHYTHM: regular rhythm HEART SOUNDS: S1 normal heart sound present and S2 normal heart sound present PERIPHERAL PULSES: Peripheral pulses 2+ throughout GI: COMMON NORMALS: Normal to inspection, nondistended, normoactive bowel sounds present, Soft to palpation, non-tender, No hepatosplenomegaly present and no masses AUSCULTATION: Yes normoactive bowel sounds PALPATION: Yes Soft to palpation and Yes No hepatosplenomegaly present RECTAL EXAM: deferred Extremity: COMMON NORMALS: no clubbing, cyanosis or edema and no pedal edema Neuro: COMMON NORMALS: patient oriented x3 Data : 02/14/21 11:01 02/14/21 11:01 Micro: Microbiology 02/14/21 11:01 Blood Culture - Preliminary Blood SPECIMEN COLLECTED A&P Assessment and plan (1) Acute hypoxemic respiratory failure due to COVID-19: Acute hypoxic respiratory failure secondary to Covid pneumonia with superimposed bacterial infection. CRP Ferritin D-dimer Pro calcitonin Serial x-ray chest Monitor ABG blood culture urine culture sputum culture Remdesivir 200 mg IV x1 dose, followed by 100 mg IV daily for total of 5 days. Dexamethasone 6 mg IV daily Vancomycin Zosyn Levofloxacin HHFONC Pulmonary support Status: Acute (2) Leukopenia: Currently WBC count is:2.8 Monitor CBC Status: Acute (3) Hypothyroidism: levothyroxine 125 mcg p.o. daily Status: Acute (4) Breast CA: Status: Acute Attestations Medical Necessity Statement*: Patient needs to be in hospital for management of respiratory failure.Anticipated length of stay greater than 2 midnights Coding Level of Care Code Acute Word Processing Machine Operator for g Fwd Exam Detailed Diagnoses Acute hypoxemic respiratory failure due to COVID-19 U07.1; J96.01 Leukopenia D72.819 Hypothyroidism E03.9 Breast CA C50.919
[2021-02-14] MEDS: enoxaparin 40 mg/0.4 mL Syringe SUBCUT (14:42)
[2021-02-14] MEDS: ipratropium-albuterol 3 mL Neb INHALATION ×3 (15:15→23:46)
[2021-02-14] MEDS: piperacillin-tazobactam 3.375 GM in sodium chloride 0.9% (plus) 50 ML IV ×2 (16:25→23:41)
[2021-02-14] MEDS: vancomycin 1,000 MG in sodium chloride 0.9% 250 ML 250 MG IV (20:02)
[2021-02-14] MEDS: aspirin 325 mg Tablet PO (20:02)
[2021-02-15] VITALS (50 sets, daily range): BP systolic 99–201; BP diastolic 59–104; PULSE 77–128; RESP 16–33; TEMP 36.6–37.7; O2SAT 74–94
[2021-02-15] MEDS: ipratropium-albuterol 3 mL Neb INHALATION ×6 (03:32→23:44)
[2021-02-15 03:56] LABS: NT Pro B Type Natriuretic Pept 81 pg/mL (0-125); Procalcitonin 0.18 ng/mL (0-0.5)
--- NOTE | 2021-02-15 04:01 | PC.NURSE ---
Patient switched over to heated high flow early on in shift. Tolerated very well. Consumed 1/2 cup jello and a sprite and ate a few crackers. patient continued to sat lower 90's all night until approximately 4 am and was transferred back to [facility]. Continue care.
[2021-02-15 04:07] LABS: Alanine Aminotransferase 26 U/L (0-33); Albumin Level 3.3 g/dL (3.5-5.2); Alkaline Phosphatase 87 IU/L (35-105); Blood Urea Nitrogen 13 mg/dL (8-23); Calcium 8.3 mg/dL (8.5-10.5); Carbon Dioxide 20 mmol/L (22-29); Chloride 98 mmol/L (98-107); Globulin 2.1 g/dL (1.3-4.6); Glomerular Filtration Rate 84.5 mL/min (90-130); Glucose 132 mg/dL (65-115); Osmolality Calculated 280 mOsm/kg (285-295); Sodium 134 mmol/L (136-145); Total Bilirubin 0.4 mg/dL (0.15-1.2); Total Protein 5.4 g/dL (6.6-8.7)
[2021-02-15 04:08] LABS: D Dimer 0.78 ug/mIFEU (0-0.59)
[2021-02-15 04:11] LABS: Anion Gap 20.5 (5-19); Aspartate Amino Transferase 45 U/L (0-32); Potassium 4.5 mmol/L (3.5-5.1)
[2021-02-15 04:36] LABS: Ferritin 2969 ng/mL (15-150)
[2021-02-15] MEDS: FUROsemide 10 mg/mL SDV 2mL 20 MG IVP (05:00)
[2021-02-15] MEDS: levothyroxine 125 mcg Tablet PO (05:00)
--- NOTE | 2021-02-15 05:00 | XRR_ITS ---
PROCEDURE INFORMATION: Exam: XR Chest Exam date and time: 02/15/2021 12:00 AM Age: 65 years old Clinical indication: Shortness of breath; Additional info: Pneumonia TECHNIQUE: Imaging protocol: XR of the chest. Views: 1 view. COMPARISON: CR (CHEST, ) 02/14/2021 11:27 AM FINDINGS: Tubes, catheters and devices: Stable positioning of med port catheter. Lungs: Bilateral interstitial/airspace disease again demonstrated. Pleural spaces: No significant pleural effusion. Heart/Mediastinum: No cardiomegaly. Bones/joints: Degenerative change. XR/XR chest 1V portable [id number] IMPRESSION: Bilateral interstitial/airspace disease again demonstrated.
[2021-02-15 07:24] LABS: Hematocrit 35.4 % (37.0-47.0); Hemoglobin 11.4 g/dL (11.5-15.3); Lymphocytes # 0.1 10^3/uL (0.8-4.8); Lymphocytes % 17.6 %; Mean Corpuscular HGB Conc 32.2 g/dL (30.0-36.0); Mean Corpuscular Hemoglobin 31.6 pg (28.0-34.0); Mean Corpuscular Volume 98.1 fL (81-99); Mean Platelet Volume 10.7 fL (7.4-10.4); Monocytes % 2.9 %; Nucleated Red Blood Cells % 0 %; Platelet Count 139 10^3/cmm (130-400); Red Blood Count 3.61 10^6/uL (4.1-5.3); Red Cell Distribution Width 15.2 % (12.1-15.1)
[2021-02-15] MEDS: vancomycin 1,000 MG in sodium chloride 0.9% 250 ML 250 MG IV ×2 (07:25→19:49)
[2021-02-15] MEDS: piperacillin-tazobactam 3.375 GM in sodium chloride 0.9% (plus) 50 ML IV ×2 (08:35→14:59)
[2021-02-15 08:57] LABS: Neutrophils % 79.5 %; Slide Review Slide Review Perform
[2021-02-15 09:00] LABS: Neutrophils # 0.54 10^3/uL (1.8-7.7); White Blood Count 0.7 10^3/uL (4.0-10.0)
[2021-02-15] MEDS: levofloxacin-dextrose 5 % 750 MG/150 ML PREMIX 100 MG IV (11:56)
[2021-02-15] MEDS: LORazepam 1 mg Tablet PO (11:57)
[2021-02-15] MEDS: enoxaparin 40 mg/0.4 mL Syringe SUBCUT (13:56)
[2021-02-15] MEDS: dexamethasone 4 mg/mL INJ 6 MG IVP (13:56)
[2021-02-15] MEDS: FUROsemide 10 mg/mL SDV 4mL 40 MG IVP ×2 (15:51→19:44)
[2021-02-15] MEDS: dexmedetomidine 400 MCG in sodium chloride 0.9% (100 ml) 100 ML IV (16:32)
[2021-02-15] MEDS: remdesivir 100 MG in sodium chloride 0.9% (100 ml) 100 ML IV (17:46)
--- NOTE | 2021-02-15 19:11 | P.PN_ITS ---
Subjective Subjective: Interval history: Patient was seen and examined this morning.Currently she is extremely short of breath.She has been tachypneic.Her other vitals and labs have been reviewed. Vitals/I&O/Wt Last Vital Signs Temp 99.9 F H 02/15/21 18:37 Pulse 97 02/15/21 18:29 Resp 25 H 02/15/21 18:00 BP 127/81 02/15/21 18:00 Pulse Ox 93 02/15/21 18:29 02/15/21 02/15/21 02/15/21 06:59 14:59 22:59 Intake Total 170 / 1840 300 / 300 721.867 / 1021.867 Output Total 750 / 750 Balance 170 / 1840 300 / 300 -28.133 / 271.867 Weight last 48 hrs Weight 60.781 kg Physical Exam Const: COMMON NORMALS: patient oriented x3 HENMT: COMMON NORMALS: normocephalic and atraumatic HEAD & SCALP: normocephalic and atraumatic Resp: OTHER: Bilateral coarse breath sounds, with crackles Cardio: COMMON NORMALS: regular rate, regular rhythm, S1 normal heart sound present, S2 normal heart sound present, No gallops present (Cardio), No murmurs present (Cardio), No rub (Cardio) and Peripheral pulses 2+ throughout RATE: regular rate RHYTHM: regular rhythm HEART SOUNDS: S1 normal heart sound present and S2 normal heart sound present PERIPHERAL PULSES: Peripheral pulses 2+ throughout GI: COMMON NORMALS: Normal to inspection, nondistended, normoactive bowel sounds present, Soft to palpation, non-tender, No hepatosplenomegaly present and no masses AUSCULTATION: Yes normoactive bowel sounds PALPATION: Yes Soft to palpation and Yes No hepatosplenomegaly present RECTAL EXAM: deferred Extremity: COMMON NORMALS: no clubbing, cyanosis or edema and no pedal edema Neuro: COMMON NORMALS: patient oriented x3 Urinary Catheter Management^: Lee: Cath Placed During This Visit: yes Reason for Continuing Indwelling Catheter: Accurate Measurement of Urinary Output in Critically Ill Patients Urinary Catheter Date of Insertion: 02/15/21 Urinary Catheter Time of Insertion: 11:33 Data : 02/15/21 07:02 02/15/21 03:08 Micro: Microbiology 02/14/21 11:01 Blood Culture - Preliminary Blood NEGATIVE TO DATE 02/14/21 11:37 Blood Culture - Preliminary Blood Gram positive cocci A&P Assessment and plan (1) ARDS (adult respiratory distress syndrome): Severe ARDS secondary to Covid pneumonia with superimposed bacterial infection. CRP:125 Ferritin:2969 D-dimer:0.78 Pro calcitonin:0.18 X-ray chest: Extensive bilateral airspace disease ABG blood culture:1/3 bottles gram-positive cocci urine culture:Pending sputum culture:Pending Remdesivir 200 mg IV x1 dose, followed by 100 mg IV daily for total of 5 days. Dexamethasone 6 mg IV daily Vancomycin Zosyn Levofloxacin HHFONC/BIPAP Pulmonary support Status: Acute (2) Neutropenia: Neutropenia: Monitor CBC Continue broad-spectrum antibiotic She has received Neupogen on the last admission. Status: Acute (3) Leukopenia: Currently WBC count is:2.8 Monitor CBC Status: Acute (4) Hypothyroidism: levothyroxine 125 mcg p.o. daily Status: Acute (5) Breast CA: Status: Acute Additional A&P Information CODE STATUS: Full code DVT prophylaxis: Lovenox Family has been updated Attestations Medical Necessity Statement*: Patient needs to be in hospital for management of respiratory failure. Coding Level of Care Code Acute Installation & Maintenance Executive for Chg Fwd Exam Detailed Diagnoses ARDS (adult respiratory distress syndrome) J80 Neutropenia D70.9 Leukopenia D72.819 Hypothyroidism E03.9 Breast CA C50.919
[2021-02-15 20:17] LABS: ABG PCO2 27.4 mmHg (35-45); Alveolar-Arterial Oxygen Gradi 72.9 mmHg (5-10); Arterial Blood Gas Hematocrit 38.4 % (37-47); Base Excess ABG 3.6 mmol/L (-2.0-2.0); Blood Gas Allen Test Pos; Blood Gas Operator Identificat JB; Blood Gas Sample Site Radial, right; Blood Gas Sample Type Arterial; Carboxyhemoglobin 0.3 %THgb (0.4-20.1); HCO3 ABG 24.9 mmol/L (22-26); HGB O2 Sat 98.2 % (95-100); Ionized Calcium Level - ABG 1.2 mmol/L (1.1-1.4); Methemoglobin 0.3 % (0.4-1.5); Oxygen Device BIPAP; Oxygen Saturation ABG 98.7; Potassium Level - ABG 3.6 mmol/L (3.5-5.0); Total Hemoglobin 12.5 g/dL (12-16)
[2021-02-15 20:19] LABS: ABG PH Result 7.57 (7.35-7.45)
[2021-02-15] MEDS: LORazepam 2 mg/mL INJ 1 mL IVP (20:30)
--- NOTE | 2021-02-15 21:45 | XRR_ITS ---
PROCEDURE INFORMATION: Exam: XR Chest Exam date and time: 02/15/2021 9:49 PM Age: 65 years old Clinical indication: Device placement; Ett placement (vent status); Additional info: Intubation TECHNIQUE: Imaging protocol: XR of the chest. Views: 1 view. COMPARISON: CR (CHEST, ) 02/15/2021 8:57 AM FINDINGS: Tubes, catheters and devices: An endotracheal tube is placed with its tip approximately 1.9 cm from the shelly. A nasogastric tube is present with its tip at least in the proximal stomach. EKG leads overlie the chest. Lungs: There are diffuse bilateral interstitial opacities present with some air bronchograms seen suggesting worsening bilateral interstitial pneumonia. Pleural spaces: Unremarkable. No pleural effusion. No pneumothorax. Heart/Mediastinum: A MediPort catheter is placed via the right internal jugular vein with its tip at the level of the right atrium. Bones/joints: Unremarkable. XR/XR chest 1V portable [id number] IMPRESSION: 1. Endotracheal tube tip 1.9 cm from the shelly. 2. Nasogastric tube tip at least in proximal stomach. 3. Worsening bilateral interstitial infiltrates
--- NOTE | 2021-02-15 22:19 | PM.ACPR ---
Procedure/Consent Time out: Time Out Performed: Yes Consent: Consent for Procedure: Consent obtained from other (indicate) Additional Consent Information: Consent was taken from the family however it was an emergent procedure because of worsening hypoxia on BiPAP she was saturating 75 to 79% on BiPAP optimal settings Acute Procedures Epistaxis Control: Time out performed: Yes Intubation: Time out performed: Yes Sedative: etomidate Mg given: 15 Paralytic: rocuronium Mg given: 90 Laryngoscope: fiber optic video scope Assist device used: fiber optic device ET tube size: 4 Tube secured depth (cm): 24 Tube secured location: teeth Tube placement confirmation: visualized tube passing through cords, equal breath sounds bilaterally, no breath sounds over epigastrium, confirmation by capnometry and color change noted Patient tolerated procedure: well Intubation complications: difficult intubation and hypoxia Additional comments: Indication: Worsening hypoxia on BiPAP Consent taken from the family Preprocedure patient was saturating 75% on BiPAP, systolic blood pressure 97, she was started on Levophed at 10 before intubation RSI: Etomidate 15 mg, rocuronium 70 +20 mg After use of RSI agents, fiberoptic glide scope was passed however on first attempt it was hard to open her lower jaw, she received 70 mg of rocuronium with etomidate 50 mg, gleidoscope was retracted, she was bagged for about 3 to 4 minutes to bring her O2 saturation about 75%, recalculation of weight was done, she was listed at her 135 pounds, and actual she weighs 235 pounds, I gave her extra 20 mg of rocuronium to make it 90 mg in total, on second attempt letter scope was inserted without any resistance, vocal cords were visualized, endotracheal tube was passed on first attempt, endotracheal tube size 8 use, end-tidal CO2 color change detected, bilateral adequate breath sounds, she is hypertensive, sinus tachycardic 120s assist control ventilator settings, O2 saturation 82-83% PEEP 14, FiO2 100% minute ventilation 5-6, tidal volume 350 Post intubation: Hypoxia O2 saturation 83%, decreased compliance of luck secondary to COVID-19 pneumonia Chest x-ray shows satisfactory position of endotracheal tube about 1.5 to centimeter above shelly
--- NOTE | 2021-02-15 22:33 | PM.EVENT ---
Event Note Event Note: I was called because of worsening hypoxia on optimal settings of BiPAP Family gave consent for intubation however it was an emergent procedure because of worsening hypoxia Etomidate 50 mg and rocuronium 90 mg was used for RSI, endotracheal tube size 8 was used She was intubated without any complications because of her decreased lung compliance her O2 saturation is 83% on assist control setting PEEP of 14 tidal volume 350, FiO2 100%, her minute ventilation is 5-6, I have increased her tidal volume to 400 we will start Nimbex, before starting paralytic agents her O2 saturation improved to 92% with increase of tidal volume to 400 Will reassess after starting paralytic agent whether we need proning to improve her oxygenation
[2021-02-15] MEDS: rocuronium 10 mg/mL INJ 5mL 70 MG IVP (23:00)
[2021-02-15] MEDS: cisatracurium 100 MG in sodium chloride 0.9% 50 ML 31.3 MG IV (23:45)
--- NOTE | 2021-02-15 23:54 | PC.NURSE ---
Patient continued to desat at was maintaining 79% O2 saturation on 100%Fio2 on bipap. Notified Dr. Cool and had talked to family earlier in the shift about intubation. Patient was intubated at 2150 using rocoronium and etomidate. Size 8 ET tube placed 25 @ the lip. Bilateral breath sounds audible. Paralytic was initiated Nimbex for vent compliance. Family notified at intubation and paralytic.
[2021-02-16] VITALS (22 sets, daily range): BP systolic 103–157; BP diastolic 61–77; PULSE 83–121; RESP 16–18; TEMP 37.2–37.3; O2SAT 90–97
[2021-02-16] MEDS: cisatracurium 100 MG in sodium chloride 0.9% 50 ML 6.3 MG IV (03:04)
--- NOTE | 2021-02-16 03:12 | PC.NURSE ---
BIS [id number] 0200-40 TOF -09/22 020-12/21 Patient is within vent compliance Nimbex currently at 1 mcg/kg/min
[2021-02-16] MEDS: ipratropium-albuterol 3 mL Neb INHALATION ×2 (03:33→07:31)
[2021-02-16] MEDS: levothyroxine 125 mcg Tablet PO (05:13)
--- NOTE | 2021-02-16 06:16 | PC.NURSE ---
BIZ 0600-42 TOF 0600-10/23
--- NOTE | 2021-02-16 06:18 | PC.NURSE ---
Addendum entered by Malena Zafar RN 02/16/21 06:19: Witnessed Fentanyl waste Original Note: 17.58 of fentanyl wasted with Malena CALLOWAY
[2021-02-16 06:19] LABS: D Dimer 0.96 ug/mIFEU (0-0.59)
[2021-02-16 06:20] LABS: Basophils % 2.2 %; Hematocrit 39.9 % (37.0-47.0); Lymphocytes # 0.2 10^3/uL (0.8-4.8); Lymphocytes % 42.2 %; Mean Corpuscular HGB Conc 32.6 g/dL (30.0-36.0); Mean Corpuscular Hemoglobin 31.3 pg (28.0-34.0); Mean Corpuscular Volume 95.9 fL (81-99); Mean Platelet Volume 10.6 fL (7.4-10.4); Monocytes # 0.1 10^3/uL (0.2-0.9); Monocytes % 22.2 %; Neutrophils % 22.3 %; Nucleated Red Blood Cells % 0 %; Platelet Count 146 10^3/cmm (130-400); Red Blood Count 4.16 10^6/uL (4.1-5.3)
[2021-02-16 06:28] LABS: Alanine Aminotransferase 36 U/L (0-33); Albumin Level 3.4 g/dL (3.5-5.2); Alkaline Phosphatase 92 IU/L (35-105); Aspartate Amino Transferase 58 U/L (0-32); Blood Urea Nitrogen 21 mg/dL (8-23); C Reactive Protein 130.7 mg/L (0.0-4.9); Calcium 8.7 mg/dL (8.5-10.5); Carbon Dioxide 28 mmol/L (22-29); Chloride 92 mmol/L (98-107); Globulin 3.5 g/dL (1.3-4.6); Glomerular Filtration Rate 41.4 mL/min (90-130); Glucose 130 mg/dL (65-115); Osmolality Calculated 285 mOsm/kg (285-295); Sodium 135 mmol/L (136-145); Total Bilirubin 0.3 mg/dL (0.15-1.2); Total Protein 6.9 g/dL (6.6-8.7)
[2021-02-16 06:32] LABS: Anion Gap 18.6 (5-19); Potassium 3.6 mmol/L (3.5-5.1)
[2021-02-16 06:33] LABS: Procalcitonin 0.35 ng/mL (0-0.5)
[2021-02-16 06:37] LABS: Arterial Blood Gas Hematocrit 56.2 % (37-47); Base Excess ABG 1.3 mmol/L (-2.0-2.0); Blood Gas Allen Test Pos; Blood Gas Operator Identificat JB; Blood Gas Sample Site Brachial, right; Blood Gas Sample Type Arterial; Carboxyhemoglobin 0.4 %THgb (0.4-20.1); HCO3 ABG 29.9 mmol/L (22-26); HGB O2 Sat 94.6 % (95-100); Ionized Calcium Level - ABG 1.2 mmol/L (1.1-1.4); Methemoglobin 0.6 % (0.4-1.5); Oxygen Device VENT; Oxygen Saturation ABG 95.6; Potassium Level - ABG 3.7 mmol/L (3.5-5.0); Total Hemoglobin 18.3 g/dL (12-16)
[2021-02-16 06:38] LABS: ABG PCO2 60.4 mmHg (35-45)
[2021-02-16 07:01] LABS: Slide Review Slide Review Perform
[2021-02-16 07:03] LABS: White Blood Count 0.5 10^3/uL (4.0-10.0)
[2021-02-16 07:14] LABS: Ferritin 3184 ng/mL (15-150)
[2021-02-16] MEDS: vancomycin 1,000 MG in sodium chloride 0.9% 250 ML 250 MG IV (07:38)
[2021-02-16] MEDS: piperacillin-tazobactam 3.375 GM in sodium chloride 0.9% (plus) 50 ML IV (07:38)
--- NOTE | 2021-02-16 08:00 | PC.NURSE ---
BIZ- 41 TO4-4 will continue to monitor
--- NOTE | 2021-02-16 10:58 | P.TS_ITS ---
Transfer Summary Providers Date of Admission: 02/14/21 12:11 Date of Discharge: 02/16/21 Attending Provider at Admission: Demetri Woods MD Attending Provider at Transfer: Sandra Multani MD Primary Care Provider: Mary Lee MD Anticipated Date of Transfer: Anticipated date of transfer: 02/16/21 Receiving Facility & Provider: Receiving Provider: [] Receiving facility: [] Diagnoses at Discharge Discharge Diagnosis (1) ARDS (adult respiratory distress syndrome): Status: Acute (2) Pneumonia due to COVID-19 virus: Status: Acute (3) Neutropenia: Status: Acute Qualifiers: Neutropenia type: unspecified Qualified Code(s): D70.9 - Neutropenia, unspecified (4) Leukopenia: Status: Acute Qualifiers: Leukopenia type: neutropenia Neutropenia type: unspecified Qualified Code(s): D70.9 - Neutropenia, unspecified (5) Hypothyroidism: Status: Acute Qualifiers: Hypothyroidism type: acquired Qualified Code(s): E03.9 - Hypothyroidism, unspecified (6) Breast CA: Status: Acute Qualifiers: Breast location: unspecified site of breast Estrogen receptor status: unspecified Laterality: unspecified laterality Patient sex: female Qualified Code(s): C50.919 - Malignant neoplasm of unspecified site of unspecified female breast (7) Acute hypoxemic respiratory failure: Status: Acute Reason for Visit Reason for Visit: CHEMO PT WEAKNESS AND HURTING ALL OVER Hospital Course Hospital Course 65 year old lady with PMH metaplastic right breast carcinoma with chondroid, sarcomatoid, osteoid differentiation s/p lumpectomy and right axillary sentinel lymph node biopsy november 2020 , ER/VA weakly positive, HER-2/tony positive, stage Ib. She is currently on chemotherapy with carboplatin Taxotere and Herceptin every 3 weeks, last dose 01/12/21. next planned dose on 02/11 deferred due to persistent diarrhea and UTI symptoms per oncology notes review. She presented to ER on 02/14/21 with c/o generalized weakness, fatigue, poor appetite and dyspnea. Had recently also been admitted between 01/19-01/21 for urosepsis and severe neutropenia she was treated with broad-spectrum antibiotics and neupogen. Upon arrival in the ER she was hypoxic and required 8 L by nasal cannula, which during course of admission kept escalating to Bipap and overnight needed to be intubated , currently on mechanical ventilation with fi02 100%, PEEP 14. Last ABG in labs. CTA chest per PE protocol: No pulmonary embolism: Prominent extensive diffuse bilateral pulmonary infiltrates most likely due to bilateral pneumonia. Rapid Covid Ag was positive on admission. She has been on treatment with Remdisivir, Dexamethasone , zosyn, vancomycin and levofloxacin. Labs notable for neutropenia, ANC 100. Blood cx from 02/14 resulted 1/3 positive for GPC in clusters, awaiting further identification. Urine cx with mixed superficial darryl. CRP at 130, D dimer 0.9, Serial CXR with worsening B/L infiltrates. Given rapidly worsening disease, tranfer initiated [facility] as we do not have pulmonary/critical services available on this holiday weekend, consideration for Flolan, currently N/A at [facility] and potential use of Tocilizumab and expertise with use of this medication in the immunocompromised setting. Physical Exam Narrative: EXAM NARRATIVE: GEN:Intubated, sedated CVS: S1S2 N, no murmurs RS: CTA B/L anteriorly Abd: Soft, nt/nd , bs+ LEAD CARE MANAGER: unable to assess Urinary Catheter Management^: Lee: Cath Placed During This Visit: yes Reason for Continuing Indwelling Catheter: Accurate Measurement of Urinary Output in Critically Ill Patients Urinary Catheter Date of Insertion: 02/15/21 Urinary Catheter Time of Insertion: 11:33 TS Data Data Completed and Pending: Completed Studies During Hospitalization Category Date Time Status CT angio chest PE protcl [id number] Stat Cat Scan 02/14/21 13:10 Completed CXRP [XR chest 1V portable [id number]] S tat Exams 02/15/21 21:45 Completed XR chest 1V romie ble [id number] Routine Exams 02/15/21 05:00 Completed XR chest 1V romie ble [id number] Stat Exams 02/14/21 10:38 Completed Pending at discharge Category Date Time Status Arterial Blood Ga s Full AM LABS Lab 02/17/21 04:00 Ordered Arterial Blood Ga s Full AM LABS Lab 02/18/21 04:00 Ordered Blood Culture Sta t Lab 02/14/21 11:37 Results C Reactive Protei n AM LABS Lab 02/17/21 04:00 Ordered Complete Blood Co unt w/Auto AM LABS Lab 02/17/21 04:00 Ordered Comprehensive Met abolic Panel AM LA BS Lab 02/17/21 04:00 Ordered D Dimer AM LABS Lab 02/17/21 04:00 Ordered Ferritin AM LABS Lab 02/17/21 04:00 Ordered Interleukin 6 (IL -6) Serum Routine Lab 02/15/21 07:02 Received Procalcitonin AM LABS Lab 02/17/21 04:00 Ordered Sputum Culture Ro utine Lab 02/14/21 14:22 Uncollected Urine Culture Rou russell Lab 02/14/21 19:29 Results Labs from last 24 hours 02/16/21 02/16/21 02/16/21 06:24 05:40 05:40 WBC RBC Hgb Hct MCV MCH MCHC RDW Plt Count MPV Neut % (Auto) Lymph % (Auto) [place] % (Auto) Eos % (Auto) Baso % (Auto) Neut # (Auto) Lymph # (Auto) [place] # (Auto) Eos # (Auto) Baso # (Auto) Nucleated RBC % (a uto) Nucleated RBCs # D-Dimer 0.96 H Specimen Type Arterial Sample Site Brachial, right ABG pH 7.30 L ABG pCO2 60.4 H* ABG pO2 86.0 ABG HCO3 29.9 H ABG O2 Saturation 95.6 ABG Base Excess 1.3 Vince Test Pos A-a O2 Gradient 73.0 H Hematocrit 56.2 H Hgb O2 Saturation 94.6 L Carboxyhemoglobin 0.4 Methemoglobin 0.6 Total Hemoglobin 18.3 H Sodium 136.0 135 L Potassium 3.7 3.6 Glucose 131.0 H 130 H Ionized Calcium 1.2 O2 Delivery Device Vent FiO2 100.0 Tidal Volume 0.40 PEEP 14.0 Clinical Auditor ID Dante Chloride 92 L Carbon Dioxide 28 Anion Gap 18.6 BUN 21 Creatinine 1.3 H GFR Calculation 41.4 L Calculated Osmolal ity 285 Calcium 8.7 Ferritin 3184 H Total Bilirubin 0.3 AST 58 H ALT 36 H Alkaline Phosphata se 92 C-Reactive Protein 130.7 H Total Protein 6.9 Albumin 3.4 L Globulin 3.5 Procalcitonin 0.35 02/16/21 02/15/21 05:40 20:04 WBC 0.5 L* RBC 4.16 Hgb 13.0 Hct 39.9 MCV 95.9 MCH 31.3 MCHC 32.6 RDW 15.0 Plt Count 146 MPV 10.6 H Neut % (Auto) 22.3 Lymph % (Auto) 42.2 [place] % (Auto) 22.2 Eos % (Auto) 0.0 Baso % (Auto) 2.2 Neut # (Auto) 0.10 L* Lymph # (Auto) 0.2 L [place] # (Auto) 0.1 L Eos # (Auto) 0.0 Baso # (Auto) 0.0 Nucleated RBC % (a uto) 0 Nucleated RBCs # 0.0 D-Dimer Specimen Type Arterial Sample Site Radial, right ABG pH 7.57 H* ABG pCO2 27.4 L ABG pO2 117.0 H ABG HCO3 24.9 ABG O2 Saturation 98.7 ABG Base Excess 3.6 H Vince Test Pos A-a O2 Gradient 72.9 H Hematocrit 38.4 Hgb O2 Saturation 98.2 Carboxyhemoglobin 0.3 L Methemoglobin 0.3 L Total Hemoglobin 12.5 Sodium 131.0 Potassium 3.6 Glucose 150.0 H Ionized Calcium 1.2 O2 Delivery Device Bipap FiO2 100.0 Tidal Volume PEEP Clinical Auditor ID Dante Chloride Carbon Dioxide Anion Gap BUN Creatinine GFR Calculation Calculated Osmolal ity Calcium Ferritin Total Bilirubin AST ALT Alkaline Phosphata se C-Reactive Protein Total Protein Albumin Globulin Procalcitonin Addt'l Data from Hospital Stay: Laboratory Results WBC 0.5 10^3/uL (4.0- 10.0) L* 02/16/21 05:40 Corrected WBC Cancelled 02/15/21 03:08 RBC 4.16 10^6/uL (4.1 -5.3) 02/16/21 05:40 Hgb 13.0 g/dL (11.5-1 5.3) 02/16/21 05:40 Hct 39.9 % (37.0-47.0 ) 02/16/21 05:40 MCV 95.9 fL (81-99) 02/16/21 05:40 MCH 31.3 pg (28.0-34. 0) 02/16/21 05:40 MCHC 32.6 g/dL (30.0-3 6.0) 02/16/21 05:40 RDW 15.0 % (12.1-15.1 ) 02/16/21 05:40 Plt Count 146 10^3/cmm (130 -400) 02/16/21 05:40 MPV 10.6 fL (7.4-10.4 ) H 02/16/21 05:40 Gran % Cancelled 02/15/21 03:08 Neut % (Auto) 22.3 % 02/16/21 05:40 Lymph % (Auto) 42.2 % 02/16/21 05:40 [place] % (Auto) 22.2 % 02/16/21 05:40 Eos % (Auto) 0.0 % 02/16/21 05:40 Baso % (Auto) 2.2 % 02/16/21 05:40 Neut # (Auto) 0.10 10^3/uL (1.8 -7.7) L* 02/16/21 05:40 Lymph # (Auto) 0.2 10^3/uL (0.8- 4.8) L 02/16/21 05:40 [place] # (Auto) 0.1 10^3/uL (0.2- 0.9) L 02/16/21 05:40 Eos # (Auto) 0.0 10^3/uL (0.0- 0.8) 02/16/21 05:40 Baso # (Auto) 0.0 10^3/uL (0.0- 0.1) 02/16/21 05:40 Absolute Gran (aut o) Cancelled 02/15/21 03:08 Nucleated RBC % (a uto) 0 % 02/16/21 05:40 Nucleated RBCs # 0.0 /100WBC 02/16/21 05:40 D-Dimer 0.96 ug/mIFEU (0- 0.59) H 02/16/21 05:40 Specimen Type Arterial 02/16/21 06:24 Sample Site Brachial, right 02/16/21 06:24 ABG pH 7.30 (7.35-7.45) L 02/16/21 06:24 ABG pCO2 60.4 mmHg (35-45) H* 02/16/21 06:24 ABG pO2 86.0 mmHg (80.0-1 00.0) 02/16/21 06:24 ABG HCO3 29.9 mmol/L (22-2 6) H 02/16/21 06:24 ABG O2 Saturation 95.6 02/16/21 06:24 ABG Base Excess 1.3 mmol/L (-2.0- 2.0) 02/16/21 06:24 Vince Test Pos 02/16/21 06:24 A-a O2 Gradient 73.0 mmHg (5-10) H 02/16/21 06:24 Hematocrit 56.2 % (37-47) H 02/16/21 06:24 Hgb O2 Saturation 94.6 % (95-100) L 02/16/21 06:24 Carboxyhemoglobin 0.4 %THgb (0.4-20 .1) 02/16/21 06:24 Methemoglobin 0.6 % (0.4-1.5) 02/16/21 06:24 Total Hemoglobin 18.3 g/dL (12-16) H 02/16/21 06:24 Sodium 136.0 mmol/L (131 -143) 02/16/21 06:24 Potassium 3.7 mmol/L (3.5-5 .0) 02/16/21 06:24 Glucose 131.0 mg/dL (70-1 15) H 02/16/21 06:24 Ionized Calcium 1.2 mmol/L (1.1-1 .4) 02/16/21 06:24 O2 Delivery Device Vent 02/16/21 06:24 O2 Liters/Min 8.0 % 02/14/21 10:35 FiO2 100.0 % 02/16/21 06:24 Tidal Volume 0.40 02/16/21 06:24 PEEP 14.0 cmH20 02/16/21 06:24 Clinical Auditor ID Dante 02/16/21 06:24 Sodium 135 mmol/L (136-1 45) L 02/16/21 05:40 Potassium 3.6 mmol/L (3.5-5 .1) 02/16/21 05:40 Chloride 92 mmol/L (98-107 ) L 02/16/21 05:40 Carbon Dioxide 28 mmol/L (22-29) 02/16/21 05:40 Anion Gap 18.6 (5-19) 02/16/21 05:40 BUN 21 mg/dL (8-23) 02/16/21 05:40 Creatinine 1.3 mg/dL (0.5-0. 9) H 02/16/21 05:40 GFR Calculation 41.4 mL/min (90-1 30) L 02/16/21 05:40 Glucose 130 mg/dL (65-115 ) H 02/16/21 05:40 Calculated Osmolal ity 285 mOsm/kg (285- 295) 02/16/21 05:40 Lactic Acid 1.2 mmol/L (0.5-2 .2) 02/14/21 11:01 Calcium 8.7 mg/dL (8.5-10 .5) 02/16/21 05:40 Magnesium 2.0 mg/dL (1.7-2. 3) 02/14/21 11:01 Ferritin 3184 ng/mL (15-15 0) H 02/16/21 05:40 Total Bilirubin 0.3 mg/dL (0.15-1 .2) 02/16/21 05:40 AST 58 U/L (0-32) H 02/16/21 05:40 ALT 36 U/L (0-33) H 02/16/21 05:40 Alkaline Phosphata se 92 IU/L (35-105) 02/16/21 05:40 Creatine Kinase 75 U/L (26-192) 02/14/21 11:01 C-Reactive Protein 130.7 mg/L (0.0-4 .9) H 02/16/21 05:40 NT-Pro-B Natriuret Pep 81 pg/mL (0-125) 02/15/21 03:08 Total Protein 6.9 g/dL (6.6-8.7 ) 02/16/21 05:40 Albumin 3.4 g/dL (3.5-5.2 ) L 02/16/21 05:40 Globulin 3.5 g/dL (1.3-4.6 ) 02/16/21 05:40 Procalcitonin 0.35 ng/mL (0-0.5 ) 02/16/21 05:40 Urine Color Yellow (Yellow) 02/14/21 12:07 Urine Appearance Sl hazy (CLEAR) 02/14/21 12:07 Urine pH 6 (5-7) 02/14/21 12:07 Ur Specific Gravit y 1.020 (1.005-1.0 30) 02/14/21 12:07 Urine Protein 1+ (Negative) H 02/14/21 12:07 Urine Glucose (UA) Norm (Normal) 02/14/21 12:07 Urine Ketones Negative (Negati ve) 02/14/21 12:07 Urine Blood 2+ (Negative) H 02/14/21 12:07 Urine Nitrate Negative (Negati ve) 02/14/21 12:07 Urine Bilirubin Neg (Negative) 02/14/21 12:07 Urine Urobilinogen 1 mg/dL (Negative ) H 02/14/21 12:07 Ur Leukocyte Rubina ase Negative (Negati ve) 02/14/21 12:07 Urine RBC 5-10 /hpf (0-2) H 02/14/21 12:07 Urine WBC 5-10 /hpf (0-5) H 02/14/21 12:07 Ur Squamous Epith Cells 25-40 /hpf (0-5) H 02/14/21 12:07 Ur Transition Epit h Cell 0-4 /hpf 02/14/21 12:07 Amorphous Sediment Not Reportable 02/14/21 12:07 Urine Bacteria 2+ /hpf (NONE) H 02/14/21 12:07 Urine Mucus 1+ /hpf 02/14/21 12:07 SARS-CoV-2 Ag (Rap id) Positive (Negati ve) H 02/14/21 11:07 Impressions Chest CTA 02/14/21 13:10 IMPRESSION: 1. No evidence of pulmonary embolus or aortic aneurysm/dissection. 2. Prominent extensive diffuse bilateral pulmonary infiltrates most likely due to bilateral pneumonia. 3. Fatty liver. Radiation Dose CTDIVOL = (mGy): DLP = 468.23 (mGy-cm) Chest X-Ray 02/15/21 21:45 IMPRESSION: 1. Endotracheal tube tip 1.9 cm from the shelly. 2. Nasogastric tube tip at least in proximal stomach. 3. Worsening bilateral interstitial infiltrates 02/14/21 02/15/21 02/16/21 10:35 20:04 06:24 ABG pH 7.45 7.57 H* 7.30 L ABG pCO2 38.7 27.4 L 60.4 H* ABG pO2 51.6 L 117.0 H 86.0 ABG HCO3 26.8 H 24.9 29.9 H ABG O2 Saturation 87.3 98.7 95.6 ABG Base Excess 2.7 H 3.6 H 1.3 Vitals: Last Vital Signs Temp 98.9 F 02/16/21 04:00 Pulse 90 02/16/21 07:45 Resp 16 02/16/21 09:12 BP 157/73 02/16/21 06:00 Pulse Ox 95 02/16/21 09:12 TS Medications Medications Home Medications aspirin 325 mg PO BEDTIME 12/05/19 [History Confirmed 02/14/21] doxepin 100 mg PO BEDTIME PRN 12/03/20 [History Confirmed 02/14/21] hydrocodone-acetaminophen 1 - 2 tab PO Q5H PRN #30 tab 12/04/20 [Rx Confirmed 02/14/21] dexamethasone 8 mg PO BID 01/19/21 [History Confirmed 02/14/21] lorazepam 0.5 - 1 mg PO TID PRN 01/19/21 [History Confirmed 02/14/21] prochlorperazine maleate 10 mg PO Q4H PRN 01/19/21 [History Confirmed 02/14/21] Probiotic 1 cap PO DAILY 02/14/21 [History Confirmed 02/14/21] acetaminophen [Tylenol Extra Strength] 1,000 mg PO PRN 02/14/21 [History Co nfirmed 02/14/21] calcium carbonate-vitamin D3 [Calcium + D] 1 tab PO QAM 02/14/21 [History Confirmed 02/14/21] ciprofloxacin HCl 500 mg PO BID 02/14/21 [History Confirmed 02/14/21] levothyroxine 125 mcg PO QAM 02/14/21 [History Confirmed 02/14/21] Active Medications Acetaminophen (Acetaminophen 325 Mg Tablet) 650 mg PO Q6H PRN PRN Reason: Mild/Mod Pain Or Temp >/= 101 Albuterol/Ipratropium (Ipratropium-Albuterol 3 Ml Neb) 3 ml INHALATION Q4H.RESPIRATORY ARCELIA Last Admin: 02/16/21 07:31 Dose: 3 ml Documented by: Aspirin (Aspirin 325 Mg Tablet) 325 mg PO BEDTIME ARCELIA Last Admin: 02/15/21 19:46 Dose: Not Given Documented by: Bisacodyl (Bisacodyl 5 Mg Tablet) 10 mg PO DAILY PRN; Protocol PRN Reason: Constipation (see protocol) Dexamethasone (Dexamethasone 4 Mg/Ml Inj) 6 mg IVP Q24H ARCELIA Last Admin: 02/15/21 13:56 Dose: 6 mg Documented by: Doxepin HCl (Doxepin 50 Mg Capsule) 100 mg PO BEDTIME PRN PRN Reason: Sleep Enoxaparin Sodium (Enoxaparin 40 Mg/0.4 Ml Syringe) 40 mg SUBCUT Q24H [facility] Last Admin: 02/15/21 13:56 Dose: 40 mg Documented by: Furosemide (Furosemide 10 Mg/Ml Sdv 4ml) 40 mg IVP Q24H [facility] Last Admin: 02/15/21 19:44 Dose: 40 mg Documented by: Guaifenesin/Dextromethorphan (Guaifenesin-Dextromethorphan Udc 10 Ml) 5 ml PO Q 4H PRN PRN Reason: COUGH Remdesivir 100 mg/ Sodium (Chloride) 100 mls @ 100 mls/hr IV Q24H [facility] Stop: 02/18/21 18:59 Last Infusion: 02/15/21 19:45 Dose: Infused Documented by: Piperacillin Sod/Tazobactam (Sod 3.375 gm/ Sodium Chloride) 50 mls @ 12.5 mls/hr IV Q8H [facility]; Protocol Last Admin: 02/16/21 07:38 Dose: 12.5 mls/hr Documented by: Levofloxacin/Dextrose (Levaquin-D5w) 750 mg in 150 mls @ 100 mls/hr IV Q24H [facility]; Protocol Last Infusion: 02/15/21 11:56 Dose: 0 mls/hr Documented by: Vancomycin HCl 1,000 mg/ (Sodium Chloride) 250 mls @ 250 mls/hr IV Q12H [facility] Last Admin: 02/16/21 07:38 Dose: 250 mls/hr Documented by: Dexmedetomidine HCl 400 mcg/ (Sodium Chloride) 104 mls @ 0 mls/hr IV .Q0M ARCELIA; Protocol Last Titration: 02/16/21 03:08 Dose: 0 mcg/kg/hr, 0 mls/hr Documented by: Fentanyl 1,000 mcg/ Sodium (Chloride) 100 mls @ 0 mls/hr IV .Q0M ARCELIA; Protocol Last Admin: 02/16/21 06:15 Dose: 100 mcg/hr, 10 mls/hr Documented by: Norepinephrine Bitartrate 4 mg (/ Dextrose) 254 mls @ 0 mls/hr IV .Q0M ARCELIA; Protocol Last Titration: 02/15/21 23:02 Dose: 0 mcg/min, 0 mls/hr Documented by: Cisatracurium Besylate 100 mg/ (Sodium Chloride) 100 mls @ 0 mls/hr IV .Q0M [facility]; Protocol Last Titration: 02/16/21 05:45 Dose: 1.5 mcg/kg/min, 9.4 mls/hr Documented by: Midazolam HCl 100 mg/ Sodium (Chloride) 100 mls @ 0 mls/hr IV .Q0M [facility]; Protocol Last Titration: 02/16/21 05:45 Dose: 3 mg/hr, 3 mls/hr Documented by: Levothyroxine Sodium (Levothyroxine 125 Mcg Tablet) 125 mcg PO QAM ARCELIA Last Admin: 02/16/21 05:13 Dose: 125 mcg Documented by: Lorazepam (Lorazepam 1 Mg Tablet) 1 mg PO TID PRN PRN Reason: Nausea Last Admin: 02/15/21 11:57 Dose: 1 mg Documented by: Lorazepam (Lorazepam 2 Mg/Ml Inj 1 Ml) 2 mg IVP Q2H PRN PRN Reason: ANXIETY Morphine Sulfate (Morphine 4 Mg/Ml Sdv 1 Ml) 2 mg IVP Q4H PRN PRN Reason: SEVERE PAIN Naloxone HCl (Naloxone 0.4 Mg/Ml Sdv) 0.1 mg IVP Q2M PRN PRN Reason: OPIATERV Ondansetron HCl (Ondansetron 2 Mg/Ml Sdv 2 Ml) 4 mg IVP Q8H PRN PRN Reason: vomiting, or N/V if npo Last Admin: 02/14/21 20:13 Dose: 4 mg Documented by: Oxycodone/Acetaminophen (Oxycodone-Apap 10-325 Mg Tablet) 1 tab PO Q4H PRN PRN Reason: MODERATE PAIN Prochlorperazine (Prochlorperazine 10 Mg Tablet) 10 mg PO Q4H PRN PRN Reason: Nausea Discharge Plan Discharge Patient Disposition: Xfer Other Condition: Stable Prescriptions: No Action aspirin 325 mg Tablet 325 mg PO BEDTIME RF: 0 doxepin 100 mg Capsule 100 mg PO BEDTIME PRN (Reason: Sleep) RF: 0 hydrocodone-acetaminophen 5-325 mg tablet 1 - 2 tab PO Q5H PRN (Reason: pain) Qty: 30 RF: 0 prochlorperazine maleate 10 mg tablet 10 mg PO Q4H PRN (Reason: Nausea) RF: 0 dexamethasone 4 mg tablet 8 mg PO BID RF: 0 lorazepam 1 mg tablet 0.5 - 1 mg PO TID PRN (Reason: Nausea) RF: 0 ciprofloxacin HCl 250 mg tablet 500 mg PO BID RF: 0 Calcium + D 600 mg(1,500mg) -200 unit Tablet 1 tab PO QAM RF: 0 Tylenol Extra Strength 500 mg Tablet 1,000 mg PO PRN RF: 0 Probiotic 1 cap PO DAILY RF: 0 levothyroxine 125 mcg tablet 125 mcg PO QAM RF: 0 Discharge Orders: Transfer Out of Facility (Order); Ordered 02/16/21 Ordered By: Sandra Multani Transfer Attestations Time Spent in Transfer Care*: critical care time Critical Care Time (min): 60 Status at Transfer: Cognitive status at transfer: other , Behavioral status at transfer: other , Functional status at transfer: bed bound Overall status at transfer: other Quality Metrics Clinical Quality Measures: During this hospital stay, did patient experience: None Coding Level of Care Code Acute Rooms Director for [facility] Fwd Diagnoses ARDS (adult respiratory distress syndrome) J80 Pneumonia due to COVID-19 virus U07.1; J12.82 Neutropenia D70.9 Neutropenia type: unspecified Leukopenia D70.9 Leukopenia type: neutropenia Neutropenia type: unspecified Hypothyroidism E03.9 Hypothyroidism type: acquired Breast CA C50.919 Breast location: unspecified site of breast Estrogen receptor status: unspecified Laterality: unspecified laterality Patient sex: female Acute hypoxemic respiratory failure J96.01
--- NOTE | 2021-02-16 11:07 | PC.NURSE ---
Report called to Zeina Blank RN. Call also placed to Theodore Shipley to let him know we have a bed an [facility] and to get permission to transfer his mother.
[2021-02-16] MEDS: cisatracurium 100 MG in sodium chloride 0.9% 50 ML 9.4 MG IV (12:00)
== END 2021-02-16 14:01 | disposition short-term general hospital (02) | DRG 208 ==
LOC: ER 10:20 → ICU 12:19
PROVIDERS: Admitting Provider Internal Medicine; Emergency Provider Family Medicine; PCP Family Medicine; Visit Provider Student in an Organized Health Care Education/Training Program
DX: U07.1 COVID-19 (principal); J12.82 Pneumonia due to coronavirus disease 2019; J96.01 Acute respiratory failure with hypoxia; J15.9 Unspecified bacterial pneumonia; D84.821 Immunodeficiency due to drugs; E03.9 Hypothyroidism, unspecified; C50.911 Malignant neoplasm of unspecified site of right female breast; Z17.0 Estrogen receptor positive status [ER+]; Z79.899 Other long term (current) drug therapy; F32.9 Major depressive disorder, single episode, unspecified; G47.00 Insomnia, unspecified; Z96.659 Presence of unspecified artificial knee joint; Z87.891 Personal history of nicotine dependence; D70.9 Neutropenia, unspecified; T45.1X5A Adverse effect of antineoplastic and immunosuppressive drugs, initial encounter; Z79.891 Long term (current) use of opiate analgesic
CPT/HCPCS: 36415; 36600; 51702; 71045; 71275; 80051; 80053; 81001; 82330; 82550; 82728; 82805; 83520; 83605; 83735; 83880; 84145; 85025; 85378; 86140; 87040; 87086; 87205; 87426; 93005; 94002; 94003; 94640; 94660; 94799; 96365; 96367; 96372; 96375; 99291; A4570; J1100; J1650; J1940; J1956; J2060; J2250; J2405; J2543; J3010; J3370; J3490; J7030; J7050; Q9967